=== PATIENT | female | born 1945 | race Caucasian/White ===

== ENCOUNTER 2017-11-22 10:20 | Day surgery (SDC) | payer OTHER, BC ==
--- NOTE | 2017-11-17 09:40 | RAD REPORT ---
EXAM DESCRIPTION: Cedric Jasso (2 Views)11/17/2017 9:24 am CLINICAL HISTORY: Hypertension/preoperative exam COMPARISON: 2010 FINDINGS: The lungs appear clear of acute infiltrate. The heart is normal size IMPRESSION: No acute abnormalities displayed
[2017-11-17 09:58] LABS: Absolute Lymphocytes (CBC) 1.4 K/uL (0.7-4.9); Basophils % 1.4 % (0-1.3); Eosinophils % 4.7 % (0-4.4); Hematocrit 42.9 % (36.0-45.0); Lymphocytes % 21.3 % (15.3-44.8); MCH 31.1 pg (27.0-35.0); MCV 91.6 fL (80-100); Monocytes % 14.3 % (3.3-12.3); RBC Red Blood Cell Count 4.68 M/uL (3.86-4.86)
[2017-11-17 10:31] LABS: Albumin 4.2 g/dL (3.4-5.0); Bilirubin Total 0.9 mg/dL (0.2-1.0); Potassium 4.1 mmol/L (3.5-5.1); Protein, Total 7.7 g/dL (6.4-8.2)
[2017-11-17 13:34] LABS: Urine Appearance CLOUDY; Urine Blood NEGATIVE (NEG); Urine Color DK YELLOW; Urine Glucose NEGATIVE (NEG); Urine Protein NEGATIVE (NEG); Urine Specific Gravity 1.025 (1.005-1.030)
[2017-11-17 13:40] LABS: Urine Bilirubin NEGATIVE (NEG); Urine Microscopic Reflex NO UMIC
[2017-11-22] MEDS ORDERED: Ringers Lactate 1,000 ML IV ONE (10:41)
[2017-11-22] MEDS ORDERED: CEFAZOLIN/SWI 1gm 1 GM/10 ML SYR ONE (10:41)
[2017-11-22] MEDS ORDERED: PROPOFOL 200 MG/20 ML VIAL IV ONE (12:02)
[2017-11-22] MEDS ORDERED: MIDAZOLAM HCL 2 MG/2 ML INJ ONE (12:03)
[2017-11-22] MEDS ORDERED: LIDOCAINE 2% MPF 5 ML VIAL ONE (12:03)
[2017-11-22] MEDS ORDERED: FENTANYL CITR 100 MCG/2 ML ONE (12:03)
[2017-11-22] MEDS ORDERED: EPHEDRINE SULF 50 MG/5 ML SYR ONE (12:05)
[2017-11-22] MEDS ORDERED: BUPIVACAINE 0.5% PF 10 ML VIAL ONE (12:27)
[2017-11-22] MEDS ORDERED: DEPO-MEDROL 40 MG/ML IM ONE (12:27)
[2017-11-22] MEDS ORDERED: ONDANSETRON HCL 40 MG/20 ML VIAL ONE (13:18)
[2017-11-22 14:18] VITALS: TEMP 97.2
--- NOTE | 2017-11-22 14:20 | P.BOP ---
Preoperative diagnosis: INTERNAL DERANGEMENT LEFT KNEE, MED&LAT MENISCAL PATHOLOGY Postoperative diagnosis: ANT.MED.PLICA,REACTIVE. TEAR MID&POST MED MENISC.TEAR LAT.MENISC.MIDBODY.PF Primary procedure: DIAG ARTHROSC. LEFT KNEE w/PARTIAL MED&LAT MENISECT. EXCISION AMT/MED PLICA Secondary procedure: SHAVING GD 3 CHONDROMALACIA MED&PF COMPARTMENTS Expanding Machine Operator: Jr Oropeza Estimated blood loss: <5mL Specimen: SHAVINGS Findings: SEE POST-OP DX Anesthesia: General Complications: None Implants: NONE Fluids & blood products: INJ 10 mL 0.5%MARCAINE PLAIN INTO SUBQ INCISION;DEPO- MEDROL 40 mg INTRA ART Transferred to: Recovery Room Condition: Good
[2017-11-22 15:13] VITALS: BP 129/77; O2SAT 97
--- NOTE | 2017-11-23 00:50 | OP ---
Date of Procedure: 11/22/2017 Surgeon: Jr Oropeza MD Cushion Gum Applicator: Jr Oropeza M.D. Preoperative Diagnoses: Internal derangement of the left knee with medial and lateral meniscal patho logy noted on MRI scan. The patient is having mechanical symptoms of giving way and falling. Postoperative Diagnoses: Anteromedial plica, reactive; tear mid and posterior body of medial meniscu s with associated chondromalacia medial compartment; tear of lateral midbody meniscus with fraying; a nd patellofemoral grade 3 chondromalacia. Primary Procedures: Diagnostic arthroscopy of the left knee with shaving of patellofemoral chondroma lacia, grade 3; resection of anteromedial plica; and shaving of reactive area at distal medial edge o f medial femoral condyle. Tear midbody and posterior horn of medial meniscus resected with partial m eniscectomy and lateral meniscal midbody tear resected with partial meniscectomy. Indications: This 72-year-old female has had mechanical symptoms of giving way and popping and recur rent episodes of swelling after MRI verified tears in the medial and lateral menisci and patellar cho ndromalacia. The patient has elected to proceed with diagnostic arthroscopy and indicated procedures . Technique: The patient was taken to the operating room and given a general anesthesia. The left low er extremity was placed in the limb nolasco and a tourniquet was applied to the proximal thigh. Prepp ing and draping was carried out in the usual manner, and the foot of the bed was dropped. The right thigh was supported with a trough pad that was elevated with a bolster to avoid hyperextension of the right hip during the procedure. The puncture wounds were made in the anteromedial and lateral haile ls. These were used for the scope through the lateral portal and instrumentation through the medial portal. The scope was moved into the intracondylar notch and then moved up into the patellofemoral j oint, carefully protecting the trochlear groove. There was full thickness fronding and chondromalaci a of the patella at grade 3, which was shaved and smoothed. There was grade 2 chondromalacia in the trochlear groove and it was also smoothed. The patella was observed tracking without hindrance. At that point, the scope was moved into the medial gutter and the large thickened anteromedial plica was encountered. There was a reactive area along the medial edge of the distal end of the medial femora l condyle. This reactive synovium was also resected along with the anteromedial plica. Passing into the medial compartment, the meniscus was obviously torn with a ragged tear that began at the anterio r horn and extended through the midbody and posterior horn. The tear was much like a serrated saw ed ge and the shaver was introduced and the damaged tissue was taken back to a stable remnant. The post erior horn had a horizontal split and the suction punch was used to take back the edges of the marketing finance manager ior horn to a stable position as well. The shaver was used to touch up chondromalacia in the joint a s well as smooth the edge of the trimmed cartilage. Once the medial compartment was done, then the s cope was moved into the intracondylar notch. Portions of the ligamentum mucosum and anterior fat pad were excised for visualization of the anterior cruciate and origin of the PCL. There was no patholo gy in the intercondylar notch. Passing into the lateral compartment, there was thin diaphanous frayi ng of the midportion of the lateral meniscus, and shaver was introduced to smooth and trim the portio ns of the lateral meniscus that were being caught within the intra-articular joint space. The shavin g was smoothing of that area of the meniscus with the pathology. The scope was then moved back to th e intracondylar notch and moved up to observe the patella tracking. It was tracking in the center of the trochlear groove and the trimming of chondromalacia made it appeared to be tracking quite smooth ly and without hindrance. The suprapatellar pouch was explored along with the medial and lateral gut ters. No additional loose bodies or pathology were encountered. Instrumentation was withdrawn and p unctures were closed with 4-0 nylon interrupted sutures. The punctures were injected with 10 mL of 0 .5% Marcaine plain. The intra-articular space was injected with 1 mL of Depo-Medrol 40 mg. The punc tures were covered with Xeroform gauze, flaps, and soft roll, and an Hermelindo wrap was placed around the k nee. The patient was taken to the recovery room having tolerated this procedure well. Blood Loss: Less than 5 mL. LUIS/DEBRA Voice ID: [id number] Report ID: [id number]
== END 2017-11-22 15:14 | disposition home or self-care (01) ==
LOC: OR 10:20
PROVIDERS: ATTEND Orthopaedic Surgery
PROC: 0SBD4ZZ Excision of Left Knee Joint, Percutaneous Endoscopic Approach (ICD-10-PCS; 2017-11-22)
PROC: 0SBD4ZZ Excision of Left Knee Joint, Percutaneous Endoscopic Approach (ICD-10-PCS; 2017-11-22)
PROC: 0SBD4ZZ Excision of Left Knee Joint, Percutaneous Endoscopic Approach (ICD-10-PCS; principal; 2017-11-22 11:30)
DX: M23.322 Other meniscus derangements, posterior horn of medial meniscus, left knee (principal); M23.362 Other meniscus derangements, other lateral meniscus, left knee; M22.42 Chondromalacia patellae, left knee; I10 Essential (primary) hypertension; M67.52 Plica syndrome, left knee
CPT/HCPCS: 29880; 36415; 71046; 80053; 81003; 83036; 85025; 88304; J0690; J1030; J2250; J2405; J3010

== ENCOUNTER 2019-01-23 06:32 | Day surgery (SDC) | payer OTHER, BC ==
--- NOTE | 2019-01-17 10:36 | RAD REPORT ---
EXAM DESCRIPTION: RAD - Chest Pa And Lat (2 Views) - 01/17/2019 9:33 am CLINICAL HISTORY: preoppatient pending right hand surgery for trigger finger release COMPARISON: November 2017 TECHNIQUE: PA and lateral views of the chest were obtained. FINDINGS: The lungs are clear of focal mass or infiltrate. Interstitial pattern matches comparison. Heart size is normal and central vasculature is within normal limits. No pleural effusion or pneum othorax seen. Thoracolumbar scoliosis changes are present and stable. No aortic abnormality. IMPRESSION: No acute cardiopulmonary process. Mild chronic interstitial lung pattern matches compar diana.
[2019-01-17 10:44] LABS: Absolute Lymphocytes (CBC) 1.6 K/uL (0.7-4.9); Basophils % 1.1 % (0-1.3); Hematocrit 42.1 % (36.0-45.0); Lymphocytes % 20.2 % (15.3-44.8); MPV 8.8 fL (7.6-11.3); RBC Red Blood Cell Count 4.54 M/uL (3.86-4.86)
[2019-01-17 11:03] LABS: Albumin 4.3 g/dL (3.4-5.0); Bilirubin Total 0.9 mg/dL (0.2-1.0); Potassium 3.5 mmol/L (3.5-5.1); Protein, Total 7.9 g/dL (6.4-8.2)
[2019-01-17 12:09] LABS: Urine Appearance CLEAR; Urine Bilirubin NEGATIVE (NEG); Urine Blood NEGATIVE (NEG); Urine Color DK YELLOW; Urine Glucose NEGATIVE (NEG); Urine Protein NEGATIVE (NEG); Urine Specific Gravity 1.025 (1.005-1.030); Urine Urobilinogen 0.2 mg/dL (0.2-1.0)
[2019-01-17 12:10] LABS: Urine Microscopic Reflex ORDER UMIC
[2019-01-17 15:47] LABS: Urine Amorphous Sediment 2+ /HPF (NONE SEEN); Urine Bacteria 20-50 /HPF (<20); Urine Culture Reflex Order REFLEXED; Urine Mucus 2+ /HPF (NONE SEEN); Urine RBC <5 /HPF (NONE SEEN)
--- OUTSIDE RECORDS SUMMARY | 2019-01-23 06:35 | XMS REPORT ---
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 Problem Other meniscus derangements, other M23.362 Active lateral meniscus, left knee Problem Other meniscus derangements, M23.322 Active posterior horn of medial meniscus, left knee Problem Coronary artery disease involving I25.10 Active quechan coronary artery of quechan heart without angina pectoris Problem History of [place] (myocardial 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) Problem Eosinophilia D72.1 Active Problem Abnormal laboratory test result R89.9 Active Problem Cardiac murmur R01.1 Active Problem Left hand pain M79.642 Active Problem Trigger finger, right ring finger M65.341 Active Problem Trigger finger, left ring finger M65.342 Active Problem Contusion of right tibia S80.11XA Active Problem Knee pain, unspecified chronicity, M25.569 Active unspecified laterality Problem Sprain of left knee, unspecified S83.92XA Active ligament, initial encounter Problem Pain, joint, knee, left M25.562 Active Problem Pain of right tibia M89.8X6 Active Problem Essential hypertension I10 Active Problem Prediabetes R73.03 Active Problem Right hand pain M79.641 Active Problem Obesity (BMI 30.0-34.9) E66.9 Active Problem Skin lesions L98.9 Active Problem Swelling R60.9 Active Problem Heart disease I51.9 Active Problem Left sided sciatica M54.32 Active Problem Primary osteoarthritis of left M17.12 Active knee Problem Abnormal renal function test R94.4 Active Problem Hypokalemia E87.6 Active Problem Hyperlipidemia E78.5 Active Problem Abnormal liver function test R94.5 Active Medications Medication Code Code Instructions Start End Status Dosage System Date Date Hydrochlorothiazide [facility] 32311405939 25 MG Orally Active 1 tablet Once a day in the morning Toprol XL [facility] [address]-33 50 MG Orally Active 1 tablet Once a day Probiotic [facility] 6[address]40-[address] Active not defined Biotin [facility] 82775414899 5000 MCG Active 1 tablet Orally Once a (OTC) day Diclofenac Sodium [facility] [address]-67 1 % Sept Active as Transdermal 2017 Fish Oil [facility] 77169185045 1200 MG Orally Active 1 capsule Twice a day (OTC) Multivitamin [facility] 22495-[address]80 Orally Once Active 1 tablet daily (OTC--2,0 00 IU) Vitamin D-3 [facility] [address]092 Orally Once a Active 1 tablet day (OTC--2,0 00 IU) Potassium Chloride [facility] 57738889466 20 MEQ Orally Active 1 tablet Once a day with food ASA [facility] 0 81mg Orally Active 1 tablet Once a day (OTC) Osteo Bi-Flex Regular [facility] 13289-37[address] Active not Strength defined Vitamin C [facility] 12714745879 1000 MG Orally Active 1 tablet Once a day (OTC) Vitamin B 12 [facility] [address]8411-[address] Orally Once Active 1 tablet daily (OTC--500 mcg) Zocor [facility] 62695986414 20 MG Orally Active 1 tablet Once a day in the evening Zetia [facility] 99017547744 10 MG Orally Active 1 tablet Once a day Calcium + D [facility] 9[address]35[address] Orally Once Active 1 tablet daily (OTC) Lotrel [facility] 15915060464 5-20 MG Orally Active 1 tablet Twice daily Results No Known Results Summary Purpose [employer] Submission
[2019-01-23] MEDS ORDERED: Ringers Lactate 1,000 ML IV ONE (06:50)
[2019-01-23] MEDS ORDERED: CEFAZOLIN/SWI 1gm 1 GM/10 ML SYR ONE (06:50)
[2019-01-23] MEDS ORDERED: FENTANYL CITR 100 MCG/2 ML ONE (07:08)
[2019-01-23] MEDS ORDERED: PROPOFOL 200 MG/20 ML VIAL IV ONE (07:08)
[2019-01-23] MEDS ORDERED: MIDAZOLAM HCL 2 MG/2 ML INJ ONE (07:08)
[2019-01-23] MEDS ORDERED: LIDOCAINE 1% MPF 5 ML VIAL ONE (07:09)
[2019-01-23] MEDS ORDERED: BUPIVACAINE 0.25% PF 10 ML VIAL ONE (07:23)
[2019-01-23] MEDS ORDERED: ONDANSETRON 4 MG/2 ML VIAL ONE (07:58)
[2019-01-23] MEDS ORDERED: DEPO-MEDROL 40 MG/ML IM ONE (08:01)
[2019-01-23] MEDS ORDERED: NS 0.9% VIAL 10 ML ONE (08:10)
[2019-01-23] MEDS ORDERED: NA CHLORIDE 0.9% 1,000 ML ONE (08:27)
--- NOTE | 2019-01-23 08:45 | P.BOP ---
Preoperative diagnosis: RIGHT RING FINGER TRIGGER FINGER Postoperative diagnosis: SAME Primary procedure: RIGHT RING FINGER TRIGGER RELEASE Neuro Urologist: Jr Oropeza Estimated blood loss: <5mL Specimen: NONE Anesthesia: General Complications: None Fluids & blood products: INJ. [id number]; INJ 1mL 0.25%MARCAINE PLAIN Transferred to: Recovery Room Condition: Good
[2019-01-23 09:18] VITALS: BP 116/62; TEMP 97.2; O2SAT 95
--- NOTE | 2019-01-23 20:27 | OP ---
Surgeon: Jr Oropeza MD Hand Miter Operator: Jr Oropeza MD Preoperative Diagnosis: Right ring trigger finger syndrome. Postoperative Diagnosis: Right ring trigger finger syndrome. Primary Procedure: Right ring finger trigger release. Indications: This 73-year-old female has complaints of locking and catching of the right ring finger at full flexion. This is occurring daily. The patient has discomfort associated with releasing the locked ring finger. The patient has had releases for middle finger triggering and wishes to proceed with trigger finger release for the right ring finger. Technique: The patient was taken to the operating room. A time-out was called and all pertinent fac ts were discussed. It was decided to proceed with the operation as planned. The right upper extremi ty was prepped and draped with the tourniquet in position. The limb was wrapped with an Esmarch band age for exsanguination and the tourniquet was raised to 250 mmHg. A transverse incision was made jus t distal to the billings crease. This allowed exposure of the flexor tendon and the A1 brittny. The A1 brittny was divided longitudinally under direct visualization. The incision was irrigated. There we re no punctate bleeders. Depo-Medrol 20 mg, 0.5 mL was injected into the incision. 1 mL of 0.25% Ma rcaine was also injected into the incision. The incision was closed with two interrupted sutures of 4-0 nylon. Xeroform gauze, 4 x 4, soft roll, and a 2 inch Hermelindo wrap were used to apply bandage and mi ld compression at the incision site. The patient was then awakened and taken to the recovery room joseph ving tolerated this procedure well. Estimated blood loss was less than 5 mL. Condition was good. LUIS/DEBRA Voice ID: [id number] Report ID: [id number]
== END 2019-01-23 09:50 | disposition home or self-care (01) ==
LOC: OR 06:32
PROVIDERS: ATTEND Orthopaedic Surgery
PROC: 0LN70ZZ Release Right Hand Tendon, Open Approach (ICD-10-PCS; principal; 2019-01-23 07:30)
DX: M65.341 Trigger finger, right ring finger (principal); M65.342 Trigger finger, left ring finger; I10 Essential (primary) hypertension; I25.10 Atherosclerotic heart disease of native coronary artery without angina pectoris; R01.1 Cardiac murmur, unspecified; I25.2 Old myocardial infarction; E78.5 Hyperlipidemia, unspecified; Z79.82 Long term (current) use of aspirin; Z88.8 Allergy status to other drugs, medicaments and biological substances; Z95.5 Presence of coronary angioplasty implant and graft; Z82.49 Family history of ischemic heart disease and other diseases of the circulatory system
CPT/HCPCS: 87088; 85025; 87086; 36415; 83036; 80053; 71046; 26055; J2704; J1030; J2250; J3010; J0690; J7030; J2405; 81003; 81015

== ENCOUNTER 2019-02-13 06:22 | Day surgery (SDC) | payer OTHER, BC ==
[2019-02-06 16:14] LABS: Urine Appearance CLEAR; Urine Bilirubin NEGATIVE (NEG); Urine Blood NEGATIVE (NEG); Urine Color DK YELLOW; Urine Glucose NEGATIVE (NEG); Urine Protein NEGATIVE (NEG); Urine Specific Gravity 1.025 (1.005-1.030); Urine Urobilinogen 0.2 mg/dL (0.2-1.0)
[2019-02-06 16:17] LABS: Absolute Lymphocytes (CBC) 1.9 K/uL (0.7-4.9); Basophils % 0.7 % (0-1.3); Hematocrit 40.4 % (36.0-45.0); Lymphocytes % 26.6 % (15.3-44.8); MPV 8.9 fL (7.6-11.3); RBC Red Blood Cell Count 4.38 M/uL (3.86-4.86)
[2019-02-06 16:23] LABS: Urine Microscopic Reflex NO UMIC
[2019-02-06 16:32] LABS: Albumin 4.3 g/dL (3.4-5.0); Bilirubin Total 0.7 mg/dL (0.2-1.0); Potassium 3.7 mmol/L (3.5-5.1); Protein, Total 8.1 g/dL (6.4-8.2)
[2019-02-06 22:12] LABS: Blood Morphology Comment NOT SEEN (NOT SEEN); Platelet Estimate ADEQ; Urine White Blood Cell Casts OK
[2019-02-13] MEDS ORDERED: Ringers Lactate 1,000 ML IV ONE ×2 (06:38→08:38)
[2019-02-13] MEDS ORDERED: CEFAZOLIN/SWI 1gm 1 GM/10 ML SYR ONE (06:38)
[2019-02-13] MEDS ORDERED: PROPOFOL 200 MG/20 ML VIAL IV ONE ×2 (06:58→07:34)
[2019-02-13] MEDS ORDERED: FENTANYL CITR 100 MCG/2 ML ONE (06:58)
[2019-02-13] MEDS ORDERED: LIDOCAINE 2% MPF 5 ML VIAL ONE (06:59)
[2019-02-13] MEDS ORDERED: MIDAZOLAM HCL 2 MG/2 ML INJ ONE (07:33)
[2019-02-13] MEDS ORDERED: BUPIVACAINE 0.25% PF 10 ML VIAL ONE (08:01)
--- NOTE | 2019-02-13 08:21 | P.BOP ---
Preoperative diagnosis: LEFT RING FINGER TRIGGER FINGER Postoperative diagnosis: SAME Primary procedure: TRIGGER FINGER RELEASE LEFT RING FINGER Supervisor Paper Machine: Jr Oropeza Estimated blood loss: < 5 mL Specimen: NONE Findings: A1 ISAIAH TIGHT Anesthesia: General Complications: None Fluids & blood products: INJ 1 mL 0.25% MARCAINE Transferred to: Recovery Room Condition: Good
[2019-02-13 09:56] VITALS: BP 123/58; TEMP 97; O2SAT 96
--- NOTE | 2019-02-13 11:02 | EKG ---
Test Date: 2019-02-13 Test Time: 07:07:26 Slot Shift Supervisor: JASON MEASUREMENT RESULTS: Intervals: Rate: 66 NC: 168 QRSD: 94 QT: 426 QTc: 446 [place]: P: 45 NC: 168 QRS: -19 T: 44 INTERPRETIVE STATEMENTS: Normal sinus rhythm Minimal voltage criteria for LVH, may be normal variant Borderline ECG Compared to ECG 11/17/2014 00:27:41 Left ventricular hypertrophy now present Sinus bradycardia no longer present Ventricular premature complex(es) no longer present Electronically Signed On 02-13-19 11:01:13 CDT by Casimiro Mclaughlin
--- NOTE | 2019-02-13 18:43 | OP ---
Date of Procedure: 02/13/2019 Surgeon: Jr Oropeza MD Postoperative Diagnosis: Left ring finger trigger finger. Postoperative Diagnosis: Left ring finger trigger finger. Primary Procedure: Trigger finger release, left ring finger. Indication: This 73-year-old female has had painful locking and catching of her left ring finger. S he has had prior trigger releases for both middle fingers and the right ring finger. She has elected to proceed after discussion of risks and benefits with trigger finger release for the left ring fing er. Technique: The patient was taken to the operating room and given a general anesthesia. Time-out was called and all pertinent facts were discussed. It was decided to proceed with the operation as plan jose. The left upper extremity was prepped with the tourniquet in place. The limb was elevated and a n Esmarch bandage was used for exsanguination. The tourniquet was raised to 250 mmHg. The transvers e incision was made just distal to the transverse palmar crease at the base of the left hand ring fin brent. With blunt dissection, the tendon and A1 brittny were exposed with a [place] elevator probing the proximal margin of the brittny was defined. The blunt tip of the [place] was slipped under the A1 pulle y and the 15 blade was used to cut down on the [place], dividing the A1 brittny. The tendon was then fr ee for extension and flexion visible after the A1 brittny was incised. Irrigation was carried out. C losure was affected with 2 interrupted 4-0 nylon sutures. Estimated blood loss was less than 1 mL. The Xeroform gauze, 4x4s, and a Maria [place]adalupe wrap were used to apply a compression bandage, 1 inch Hermelindo wrap was applied after that. The patient was then taken to the recovery room having tolerated the procedu re well. Just prior to suturing, each margin of the incision was injected with 0.25% Marcaine, 1 mL total. The patient was taken to the recovery room in good con dition. LUIS/DEBRA Voice ID: [id number] Report ID: [id number]
== END 2019-02-13 09:45 | disposition home or self-care (01) ==
LOC: OR 06:22
PROVIDERS: ATTEND Orthopaedic Surgery
PROC: 0LN80ZZ Release Left Hand Tendon, Open Approach (ICD-10-PCS; principal; 2019-02-13 07:30)
DX: M65.342 Trigger finger, left ring finger (principal); I10 Essential (primary) hypertension; I25.10 Atherosclerotic heart disease of native coronary artery without angina pectoris; R01.1 Cardiac murmur, unspecified; I25.2 Old myocardial infarction; E78.5 Hyperlipidemia, unspecified; Z88.8 Allergy status to other drugs, medicaments and biological substances; Z95.5 Presence of coronary angioplasty implant and graft; Z83.3 Family history of diabetes mellitus; Z82.49 Family history of ischemic heart disease and other diseases of the circulatory system
CPT/HCPCS: 93005; 85025; 36415; 81003; 83036; 80053; 26055; J2704 ×2; J2250; J3010; J0690

== ENCOUNTER 2021-03-16 11:50 | Day surgery (SDC) | payer OTHER, BC ==
--- NOTE | 2021-03-13 14:22 | RAD REPORT ---
EXAM DESCRIPTION: RAD - Chest Pa And Lat (2 Views) - 03/13/2021 2:01 pm CLINICAL HISTORY: PRE-CATH PROCEDURE COMPARISON: Two view chest January 2019 TECHNIQUE: Frontal and lateral views of the chest were obtained. FINDINGS: The lungs are clear. Interstitial pattern matches comparison. Heart size is normal and ce ntral vasculature is within normal limits. No pleural effusion or pneumothorax seen. No acute bony finding noted. Degenerative and scoliotic changes match the comparison. No aortic abnormality. No s ignificant change from comparison study. IMPRESSION: No acute cardiopulmonary process.
[2021-03-13 14:28] LABS: Absolute Lymphocytes (CBC) 2.9 K/uL (0.7-4.9); Basophils % 1.3 % (0-1.3); Hematocrit 45.4 % (36.0-45.0); Lymphocytes % 28.7 % (15.3-44.8); MPV 7.9 fL (7.6-11.3); RBC Red Blood Cell Count 4.81 M/uL (3.86-4.86)
[2021-03-13 14:35] LABS: Protime INR 0.99
[2021-03-13 14:49] LABS: Potassium 3.7 mmol/L (3.5-5.1)
[2021-03-16 13:06] VITALS: TEMP 96.8
[2021-03-16] MEDS ORDERED: NA CHLORIDE 0.9% 500 ML ONE (13:16)
[2021-03-16] MEDS ORDERED: HEPA 1000U/500MLS 1,000 UNIT/500 ML BAG IV ONE ×2 (14:50→15:35)
[2021-03-16] MEDS ORDERED: VERAPAMIL HCL 10 MG/4 ML VIAL IV ONE (14:50)
[2021-03-16] MEDS ORDERED: FENTANYL CITR 100 MCG/2 ML ONE (14:50)
[2021-03-16] MEDS ORDERED: MIDAZOLAM HCL 2 MG/2 ML INJ ONE (14:50)
[2021-03-16] MEDS ORDERED: LIDOCAINE 1% 20 ML MDV ONE (14:50)
[2021-03-16] MEDS ORDERED: ATROPINE SULF 1 MG/10 ML SYR IV ONE (14:51)
[2021-03-16] MEDS ORDERED: HEPARIN 5000 UNIT/ML 1 ML VIAL ONE (14:51)
[2021-03-16] MEDS ORDERED: NITROGLYCERIN 100 MCG/ML SYR (for cath lab use only) IV ONE (14:58)
[2021-03-16] MEDS ORDERED: NITROGLYCERIN/D5W 25 MG/250 ML BTL IV ONE (14:58)
[2021-03-16] MEDS ORDERED: CLOPIDOGREL 75 MG TABLET ONE (15:15)
[2021-03-16] MEDS ORDERED: TICAGRELOR 90 MG TABLET PO ONE (15:15)
[2021-03-16 18:05] VITALS: BP 143/73; O2SAT 96
--- NOTE | 2021-03-17 02:56 | OP ---
Date of Procedure: 03/16/2021 Surgeon: NOEL JAUREGUI Procedure Performed: 1.Selective coronary angiogram. 2.Left heart catheterization. 3.Right heart catheterization. Indication: 1.Aortic valve stenosis. 2.Angina. Access: 1.Right IJ 7-Guinean, closed with manual pressure. 2.Right radial artery 6-Guinean, closed with TR band. Complications: None. Bleeding: Less than 10 mL. Description Of Procedure: After risks, benefits, alternatives were explained, patient agreed to proc eed and signed informed consent. Patient was brought in the cardiac catheterization laboratory, prep ped and draped in usual sterile fashion. Then, we accessed the right radial artery using pediatric m icropuncture kit and placed a 6-Guinean slender sheath. Accessed right IJ using micropuncture kit and ultrasound guidance and placed 7-[place]an [place] sheath. I took a 7-[place]inean balloon-tipped [place] cath eter through the IJ into the RA, RV, PA, and wedge. Recorded waveform in each location and pressure and then performed thermodilution cardiac output. Removed the [place] and then I took 12-[place]an [place] 4 .0 catheter into the aortic root, engaged the left main and right coronary artery, took standard view s. Then, I took AL1 catheter into the aortic root and over the wire. This was advanced across the a ortic valve, recorded LVEDP, and upon pullback, there was a gradient of 27 mmHg and valve area of 1.1 indicating moderately severe aortic valve stenosis. Then, catheter was removed, sheath was removed, and placed TR band with good hemostasis. Next, sheath was removed. Manual pressure was applied wit h good hemostasis. Findings: 1.Left main: Normal. 2.LAD: Large vessel, proximal, heavily calcified 80% stenosis across the diagonal 1 branch. Diagon al 1 branch with luminal irregularities and the LAD looks fine after that. 3.Left circumflex: Large, dominant with no significant disease. 4.RCA: Small, nondominant with diffuse mid 60% stenosis. 5.Right heart catheterization numbers: RA pressure was 5, RV was 32/1 with mean of 5, PA pressure w as 23/5 with mean of 13, LVEDP was 16. Cardiac output was 5.89. Mean gradient across aortic valve w as 27 mmHg. Valve area was 1.17 sq cm. Conclusions: 1.Severe heavily calcified proximal LAD stenosis. 2.Moderate aortic valve stenosis. Plan: 1.PCI and atherectomy of the proximal LAD disease in [place] or [place]. 2.Start aspirin and Plavix. 3.Monitor the aortic valve with yearly echo. SR/MODL Voice ID: [id number] Report ID: [id number]
== END 2021-03-16 18:07 | disposition home or self-care (01) ==
LOC: CCL 11:50
PROVIDERS: ATTEND Internal Medicine
DX: I25.119 Atherosclerotic heart disease of native coronary artery with unspecified angina pectoris (principal); I35.2 Nonrheumatic aortic (valve) stenosis with insufficiency; I48.91 Unspecified atrial fibrillation; I10 Essential (primary) hypertension; E78.5 Hyperlipidemia, unspecified; Z88.8 Allergy status to other drugs, medicaments and biological substances; Z82.49 Family history of ischemic heart disease and other diseases of the circulatory system
CPT/HCPCS: 85025; 80048; 36415; 85610; 85730; 71046; 93460; C1893; J1644 ×3; J7040; J2250; J3010

== ENCOUNTER 2022-12-01 11:26 | Emergency (ER) | payer OTHER, BC ==
--- OUTSIDE RECORDS SUMMARY | 2022-12-01 11:34 | XMS REPORT | Continuity of Care Document ---
:1945 Author Organization [facility] t Address [address] [place] [address] [place] [id number] Care Team Providers Name Role Phone AYANNA MCCLENDON Primary Care Physician Unavailable Remedios Gamboa Attending Clinician Unavailable AYANNA MCCLENDON Attending Clinician Unavailable Lab, Ang - Db Attending Clinician Unavailable Ayanna Pavon Attending Clinician Juan M Nair Attending Clinician Unavailable He Powell Attending Clinician Unavailable João Viramontes Attending Clinician Unavailable Gombera, Mufaddal M Attending Clinician Unavailable Unknown, Attending Attending Clinician Unavailable VALENTIN WOODWARD M.D. Attending Clinician Unavailable João Viramontes Admitting Clinician Unavailable UNDEFINED Admitting Clinician Unavailable Physician, No Primary or Family Admitting Clinician Unavaila ble Payers Payer Name Policy Type Policy Number Effective Date Expiration Date S ju MEDICARE MB [id number] 2012 [facility] NOVITAS 00:00:00 [facility] Blue Cross Blue C1 [id number] [facility] Blue Cross Blue C1 [id number] [facility] MEDICARE MB [id number] 2012 [facility] NOVITAS 00:00:[address] - [facility] MEDICARE MB [id number] 2012 [facility] NOVITAS 00:00:00 [facility] Blue Cross Blue C1 [id number] [facility] Blue Cross and C1 [id number] [facility] Blue Shield - [facility] MEDICARE MB [id number] 2012 [facility] NOVITAS 00:00:[address] - [facility] MEDICARE MB [id number] 2012 [facility] NOVITAS 00:00:00 [facility] Blue Cross and C1 [id number] [facility] Problems Condition Condition Condition Status Onset Resolution Last Treating Co mments Source Name Details Category Date Date Treatment Clinician Date Hypertensi Hypertensi Disease Active U nivers ve chronic ve chronic 11-26 it y of kidney kidney 00:00: [place] disease disease 00 Medical with stage with stage Br anch 1 through 1 through stage 4 stage 4 chronic chronic kidney kidney disease, disease, or or unspecifie unspecifie d chronic d chronic kidney kidney disease disease Hx of Hx of Disease Active Univers heart heart 11-26 ity of artery artery 00:00: [place] stent stent Medical Branch 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 under care with cardiolog ist, Dr. 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 Dyslipidem Dyslipidem Problem Active U [place] Physici ans [id number] Essential Problem Active Comm on hypertensi Spirit on [facility] [id number] Knee pain, Problem Active Com mon unspecifie [facility] d - CHI chronicity [facility] unspecifie Medica l d Center laterality [id number] Cardiac Problem Active Common murmur [facility] [id number] Left sided Problem Active Com mon sciatica [facility] [id number] Sprain of Problem Active Comm on left knee, Spirit unspecifie - CHI d [facility] initial Medical encounter Center Swelling Swelling Problem Active Commo n [facility] [id number] Primary Problem Active Comm on osteoarthr Spirit itis of [facility] left knee [facility] [id number] Obesity Problem Active Comm on (BMI Spirit 30.0-34.9) [facility] [id number] Chondromal Problem Active C ommon acia [facility] patellae - CHI of left [facility] [id number] Prediabete Problem Active Co mmon s [facility] [id number] Other Problem Active Common meniscus Spirit derangemen - [facility] ts, [facility] of [facility] meniscus, left knee [id number] History of Problem Active Co mmon [place] [facility] (myocardia - CHI l [facility] [id number] Coronary Problem Active Com mon 107 artery [facility] disease - CHI involving [facility] coronary Medical artery of [place] heart without angina pectoris [id number] Hypokalemi Problem Active Com mon a [facility] [id number] Abnormal Problem Active Comm on renal [facility] function - CHI test [facility] [id number] Abnormal Problem Active Comm on laboratory [facility] test - [facility] result [facility] [id number] Eosinophil Problem Active Co mmon ia [facility] [id number] Trigger Problem Active Commo n finger, Spirit right ring - CHI finger [facility] [id number] Left hand Problem Active Co mmon [id number] pain [facility] [id number] Other Problem Active Common meniscus [facility] derangemen - [facility] ts, other [facility] meniscus, Medical left knee Center [id number] Right hand Problem Active C ommon [id number] pain [facility] [id number] Skin Problem Active Common lesion [facility] [id number] Contusion Problem Active Com mon of right [facility] tibia [facility] Heart Heart Problem Active Common disease disease [facility] [id number] Abnormal Problem Active Comm on liver [facility] function - [facility] test [facility] [id number] Pain of Problem Active Common right [facility] tibia [facility] [id number] Encounter Problem Active Com mon for other [facility] orthopedic - CHI aftercare [facility] [id number] Intertrigo Problem Active Com mon [facility] [id number] Screening Problem Active Com mon for Spirit thyroid - CHI disorder [facility] [id number] Primary Problem Active Comm on osteoarthr [facility] itis of [facility] right knee [facility] History of History of Problem Resolve UT atrial atrial d Physici fibrillati fibrillati an s on on Allergies, Adverse Reactions, Alerts Allergy Allergy Status Severity Reaction(s) Onset Inactive Treating Comm ents Source Name Type Date Date Clinician METFORMI DRUG Active Unknown-Cmnt Un lore N HCL INGREDI 11-19 ity of 00:00: [place] 00 Medical Branch Metformi Drug Active Unknown - Unive rs n Hcl Allergy See comments 11-19 ity of 00:00: [place] 00 Medical Branch dronedar DA Active SV HIVES 2020-05 [facility] one 05-27 Clear 00:00: [place] [facility] metformi DA Active SV HIVES 2020-05 [facility] n 05-27 Clear 00:00: [place] [facility] dabigatr DA Active SV HIVES 2020-05 [facility] an 05-27 Clear etexilat 00:00: [place] 00 [facility] No Known DA Active U UNKNOWN [facility] Drug 02-12 [place] Allergie 00:00: [facility] No Known DA Active U [facility] Drug 02-12 [place] Allergie 00:00: Orthope s 00 dic Hospita l Dronedar Propensi Active Rash Univer s one ty to 3-19 ity of adverse 00:00: [place] reaction 00 Medical [facility] Dabigatr Propensi Active Rash 2017-0 Univer s an ty to 3-19 ity of Etexilat adverse 00:00: [place] e reaction 00 Medical s [place] DRONEDAR DRUG Active Rash 2018-0 Univers ONE INGREDI 3-19 ity of 00:00: [place] 00 Medical Branch DABIGATR DRUG Active Rash 2018-0 Univers AN INGREDI 3-19 ity of ETEXILAT 00:00: [place] E 00 Medical Branch metformi Allergy Active Hives UT n to drug Physici (finding ans ) metformi metformi Active Unknown Commo n n n [facility] - [facility] dabigatr dabigatr Active Unknown Commo n an an Spirit etexilat etexilat - [facility] e e [facility] dronedar dronedar Active Unknown Commo n one one Spirit [facility] Family History Family Member Diagnosis Comments Start Date Stop Date Source Unknown Family Family history of Other [place] [facility] Member autoimmune disorder natural son Family history of [facility] Phy sicians hypertension Mother Family history of [facility] Phys icians hypertension Father Family history of [facility] icians hypertension Father Family history of [facility] icians coronary artery disease Sister Family history of [facility] hypothyroidism Sister Family history of [facility] diabetes mellitus Sister Family history of [facility] hypertension Sister Family history of [facility] Phys icians coronary artery disease Sister Family history of [facility] Phys icians autoimmune disorder Social History Social Habit Start Date Stop Date Quantity Comments Source History of Tobacco [facility] - Use [facility] Sex Assigned At [facility] - [facility] Exposure to Not sure University of SARS-CoV-2 (event) [facility] Gender identity Universit y of [facility] Sexual orientation Univer sity [facility] History of Social 2022-11-26 2022-11-26 Univers ity of function 00:00:00 00:00:00 [facility] Tobacco use and 2017-08-11 2017-08-11 Smokeless Universit y of exposure 00:00:00 00:00:00 tobacco non-user [facility] Smoking Status Start Date Stop Date Source Never smoked tobacco [facility] Medications Ordered Filled Start Stop Current Ordering Indication Dosage Frequency Signature Comments Components Source Medication Medication Date Date Medication? Clinician (SIG) Name Name metoprolol Yes 50mg Take 1 Unive rs succinate 7-14 tablet by ity o f XL (TOPROL 17:57: mouth in [place] as XL) 50 mg 06 the Medical 24 hr morning. Branch tablet ezetimibe Yes 10mg Take 1 Univer s (ZETIA) 10 7-14 tablet by ity of mg tablet 17:57: [facility] 06 the Medical morning. Branch apixaban Yes 5mg Take 1 Univers (ELIQUIS) 5 7-14 tablet by ity of mg tablet 17:57: [place] 06 the Medical morning Branch and 1 tablet in the evening. furosemide Yes 20mg Take 1 Unive rs 20 mg 7-14 tablet by ity of tablet 17:57: mouth in [place] 06 the Medical morning. Branch coQ10, 0 Yes Take by Univers ubiquinol, 7-14 mouth. ity of 100 mg Cap 17:57: [place] 06 [facility] Branch metoprolol Yes 50mg Take 1 Unive rs succinate 7-14 tablet by ity o f XL (TOPROL 17:57: mouth in [place] XL) 50 mg 06 the Medical 24 hr morning. Branch tablet ezetimibe 2022-0 Yes 10mg Take 1 Univer s (ZETIA) 10 7-14 tablet by ity of mg tablet 17:57: mouth in [facility] 06 the Medical morning. Branch apixaban Yes 5mg Take 1 Univers (ELIQUIS) 5 -14 tablet by ity of mg tablet 17:57: mouth in [facility] 06 the Medical morning Branch and 1 tablet in the evening. furosemide Yes 20mg Take 1 Unive rs 20 mg 7-14 tablet by ity of tablet 17:57: mouth in [place] [address] the Medical morning. Branch coQ10, Yes Take by Univers ubiquinol, 7-14 mouth. ity of 100 mg Cap 17:57: [place] 06 Medical Branch simvastatin 0 2022- No 20mg Take 20 mg Univers (ZOCOR) 20 11-26 by mouth ity of mg tablet 17:54: 00:00 at [place] 07 :00 bedtime. Medical Branch simvastatin 2022-0 2022- No 20mg Take 20 mg Univers (ZOCOR) 20 11-26 by mouth ity of mg tablet 17:54: 00:00 at [place] 07 :00 bedtime. Medical Branch [id number] 0 2022- No Take by Un lore iron-folic 11-26 mouth. ity of acid-dha 09:51: 00:00 [place] (PRENA1 53 :00 Medical DEIDRE) Branch 30-1.4-200 mg CpID [id number] 0 2022- No Take by Un lore iron-folic 11-26 mouth. ity of acid-dha 09:51: 00:00 [place] (PRENA1 53 :00 Medical DEIDRE) Branch 30-1.4-200 mg CpID Magnesium 0 2022- No Take by Univ ers 250 mg Tab 11-26 mouth. ity of 09:51: 00:00 [place] 44 :00 Medical Branch Magnesium 2022-0 2022- No Take by Uni vers 250 mg Tab 11-26 mouth. ity of 09:51: 00:00 [place] 44 :00 Medical Branch DOCOSAHEXAN 2022- No Take by Un lore OIC 11-26 mouth. ity of ACID/EPA 09:51: 00:00 [place] (FISH OIL 25 :00 Medical ORAL) Branch DOCOSAHEXAN 2022- No Take by Cornelius torrez OIC 11-26 mouth. ity of ACID/EPA 09:51: 00:00 [place] (FISH OIL 25 :00 Medical ORAL) Branch Biotin 2022- No Take by Univers 10,000 mcg 11-26 mouth. ity of Cap 09:51: 00:00 [place] 22 :00 Medical Branch Biotin 2022- No Take by Univers 10,000 mcg 11-26 mouth. ity of Cap 09:51: 00:00 [place] 22 :00 Medical Branch Lotrel 5-20 Lotrel 5-20 2020-0 Yes M.A. 1 Q0.5D TAKE 1 UT MG Oral MG Oral 2-27 CAPSULE Physic i Capsule Capsule 00:00: TWICE ans 00 DAILY hydroCHLORO hydroCHLORO 2020-0 Yes M.A. 1 QD TAKE 1 UT thiazide 25 thiazide 25 2-27 TABLET Physici MG Oral MG Oral 00:00: DAILY. ans Tablet Tablet 00 Toprol XL Toprol XL 2020-0 Yes M.A. QD TAKE 1 U T 50 MG Oral 50 MG Oral 2-27 TABLET P hysici Tablet Tablet 00:00: DAILY ans Extended Extended 00 Release 24 Release 24 Hour Hour Potassium Potassium 2019-0 Yes M.A. 1 QD TAKE 1 U T Chloride ER Chloride ER 2-27 TABLET Physici 10 MEQ Oral 10 MEQ Oral 00:00: DAILY. ans Tablet Tablet 00 Extended Extended Release Release Zocor 20 MG Zocor 20 MG 2020-0 Yes M.A. QD TAKE 1 UT Oral Tablet Oral Tablet 2-27 TABLET Physici 00:00: DAILY ans 00 DIRECTED. Zetia 10 MG Zetia 10 MG 2020-0 Yes M.A. TAKE 1 UT Oral Tablet Oral Tablet 2-27 TABLET BY Physici 00:00: MOUTH ans 00 DAILY D3 High D3 High 2019-0 Yes M.A. UT Potency 50 Potency 50 2-27 Phy sici MCG (2000 MCG (1999 00:00: ans UT) Oral UT) Oral 00 Capsule Capsule Vitamin B12 Vitamin B12 2020-0 Yes M.A. 1 QD TAKE 1 UT 500 MCG 500 MCG 2-27 TABLET Physici Oral Tablet Oral Tablet 00:00: DAILY. ans 00 [place] 3 [place] 3 2020-0 Yes M.A. UT 1200 MG 1200 MG 2-27 Physici Oral Oral 00:00: ans Capsule Capsule 00 Aspirin 81 Aspirin 81 2019-0 Yes M.A. QD CHEW AND UT 81 MG Oral 81 MG Oral 2-27 SWALLOW 1 Physici Tablet Tablet 00:00: TABLET ans Chewable Chewable 00 DAILY. CoQ10 200 CoQ10 200 2019-0 Yes M.A. UT MG Oral MG Oral 2-27 Physici Capsule Capsule 00:00: ans 00 Diclofenac Diclofenac Yes Remedios as Common Sodium Sodium 9-26 [place] directed Sp ravi 00:00: - CHI 00 [facility] Diclofenac Diclofenac No Diclofenac Sodium 1 % Sodium 1 % 9-26 Sodium 1 % 00:00: 00 Diclofenac Diclofenac No Diclofenac Sodium 1 % Sodium 1 % 9-26 Sodium 1 % 00:00: 00 Diclofenac Diclofenac No Diclofenac Common Sodium 1 % Sodium 1 % 9-26 Sodium 1 % Spirit 00:00: - CHI [facility] Diclofenac Diclofenac No Diclofenac Sodium 1 % Sodium 1 % 9-26 Sodium 1 % 00:00: 00 Diclofenac Diclofenac No Diclofenac Sodium 1 % Sodium 1 % 9-26 Sodium 1 % 00:00: 00 metoprolol Yes 50mg Take 50 mg U nivers succinate 08-11 by mouth ity of XL (TOPROL 15:38: daily. [place] XL) [address] [place] [address] 24 hr Branch tablet simvastatin Yes 20mg Take 20 mg Univers (ZOCOR) 20 -29 by mouth ity o f mg tablet 15:38: at [place] [address] bedtime. Medical Branch ezetimibe Yes 10mg Take 10 mg Un lore (ZETIA) 10 -29 by mouth ity o f mg tablet 15:38: daily. [place] [address] Medical Branch CHOLECALCIF Yes Take by Uni vers AZAEL, 3-29 mouth. ity of VITAMIN D3, 15:38: [place] (D-3-5 Medical ORAL) Branch aspirin 81 Yes 81mg Take 81 mg U nivers mg chewable 3-29 by mouth ity of tablet 15:38: daily. [address] Branch DOCOSAHEXAN Yes Take by Uni vers OIC 3-29 mouth. ity of ACID/EPA 15:38: [place] (FISH OIL Medical ORAL) Branch vitamin C Yes 1000mg Take 1,000 Univers with chris 3-29 mg by ity of hips 15:38: mouth [place] (VITAMIN C) 31 daily. Medica l 1,000 mg Branch tablet CALCIUM Yes Take by Univers CARBONATE/V 3-29 mouth. ity of ITAMIN D2 15:38: [place] (CALCIUM 31 Medical 600 + D Branch ORAL) Biotin Yes Take by Univers 10,000 mcg 3- mouth. ity of Cap 15:38: [address] [id number] Yes Take by Uni vers iron-folic - mouth. ity of acid-dha 15:38: [place] (PRENA1 31 Medical DEIDRE) Branch 30-1.4-200 mg CpID Magnesium Yes Take by Unive rs 250 mg Tab 3- mouth. ity of 15:38: [address] Branch metoprolol Yes 50mg Take 50 mg U nivers succinate 08-11 by mouth ity of XL (TOPROL 15:38: daily. [place] XL) 50 [facility] Medical 24 hr Branch tablet simvastatin Yes 20mg Take 20 mg Univers (ZOCOR) 20 08-11 by mouth ity o f mg tablet 15:38: at [place] [address] bedtime. [facility] Branch ezetimibe Yes 10mg Take 10 mg Un lore (ZETIA) 10 08-11 by mouth ity o f mg tablet 15:38: daily. [address] Branch CHOLECALCIF Yes Take by Uni vers AZAEL, - mouth. ity of VITAMIN D3, 15:38: [place] (D-3-5 31 Medical ORAL) Branch aspirin 81 Yes 81mg Take 81 mg U nivers mg chewable 08-11 by mouth ity of tablet 15:38: daily. [address] Branch DOCOSAHEXAN Yes Take by Uni vers OIC 3-29 mouth. ity of ACID/EPA 15:38: [place] (FISH OIL 31 Medical ORAL) Branch vitamin C Yes 1000mg Take 1,000 Univers with chris 3-29 mg by ity of hips 15:38: mouth [place] (VITAMIN C) 31 daily. Medica l 1,000 mg Branch tablet CALCIUM Yes Take by Univers CARBONATE/V 3-29 mouth. ity of ITAMIN D2 15:38: [place] (CALCIUM 31 Medical 600 + D Branch ORAL) Biotin Yes Take by Univers 10,000 mcg 3-29 mouth. ity of Cap 15:38: [address] [id number] 0 Yes Take by Uni vers iron-folic 3-29 mouth. ity of acid-dha 15:38: [place] (PRENA1 31 Medical DEIDRE) [place] 30-1.4-200 mg CpID Magnesium Yes Take by Unive rs 250 mg Tab 3- mouth. ity of 15:38: [address] Branch metoprolol Yes 50mg Take 50 mg U nivers succinate 08-11 by mouth ity of XL (TOPROL 15:38: daily. [place] XL) 50 mg Medical 24 hr Branch tablet simvastatin Yes 20mg Take 20 mg Univers (ZOCOR) 20 08-11 by mouth ity o f mg tablet 15:38: at [place] [address] bedtime. [facility] Branch ezetimibe Yes 10mg Take 10 mg Un lore (ZETIA) 10 08-11 by mouth ity o f mg tablet 15:38: daily. [address] Branch CHOLECALCIF Yes Take by Uni vers AZAEL, 3- mouth. ity of VITAMIN D3, 15:38: [place] (D-3-5 31 Medical ORAL) Branch aspirin 81 Yes 81mg Take 81 mg U nivers mg chewable 08-11 by mouth ity of tablet 15:38: daily. [address] Branch DOCOSAHEXAN Yes Take by Uni vers OIC 3-29 mouth. ity of ACID/EPA 15:38: [place] (FISH OIL 31 Medical ORAL) Branch vitamin C Yes 1000mg Take 1,000 Univers with chris 3-29 mg by ity of hips 15:38: mouth [place] (VITAMIN C) 31 daily. Medica l 1,000 mg Branch tablet CALCIUM 0 Yes Take by Univers CARBONATE/V 3-29 mouth. ity of ITAMIN D2 15:38: [place] (CALCIUM 31 Medical 600 + D Branch ORAL) Biotin 0 Yes Take by Univers 10,000 mcg 3-29 mouth. ity of Cap 15:38: [address] [id number] 0 Yes Take by Uni vers iron-folic 3-29 mouth. ity of acid-dha 15:38: [place] (PRENA1 31 Medical DEIDRE) Branch 30-1.4-200 mg CpID Magnesium Yes Take by Unive rs 250 mg Tab 3- mouth. ity of 15:38: [address] Branch metoprolol Yes 50mg Take 50 mg U nivers succinate 08-11 by mouth ity of XL (TOPROL 10:38: daily. [place] XL) 50 mg Medical 24 hr Branch tablet simvastatin Yes 20mg Take 20 mg Univers (ZOCOR) 20 08-11 by mouth ity o f mg tablet 10:38: at [place] [address] bedtime. Medical Branch ezetimibe Yes 10mg Take 10 mg Un lore (ZETIA) 10 08-11 by mouth ity o f mg tablet 10:38: daily. [address] Branch CHOLECALCIF Yes Take by Uni vers AAZEL, 3-29 mouth. ity of VITAMIN D3, 10:38: [place] (D-3-5 31 Medical ORAL) [place] aspirin 81 Yes 81mg Take 81 mg U nivers mg chewable 08-11 by mouth ity of tablet 10:38: daily. [address] vitamin C Yes 1000mg Take 1,000 Univers with chris 3-29 mg by ity of hips 10:38: mouth [place] (VITAMIN C) 31 daily. Medica l 1,000 mg Branch tablet CALCIUM 0 Yes Take by Univers CARBONATE/V 3-29 mouth. ity of ITAMIN D2 10:38: [place] (CALCIUM [address] [place] [address] 600 + D Branch ORAL) CHOLECALCIF Yes Take by Uni vers AZAEL, 3- mouth. ity of VITAMIN D3, 10:38: [place] (D-3-5 31 Medical ORAL) [place] aspirin 81 0 Yes 81mg Take 81 mg U nivers mg chewable -29 by mouth ity of tablet 10:38: daily. [address] vitamin C 2018 Yes 1000mg Take 1,000 Univers with chris 3-29 mg by ity of hips 10:38: mouth [place] (VITAMIN C) 31 daily. Medica l 1,000 mg Branch tablet CALCIUM 0 Yes Take by Univers CARBONATE/V 3-29 mouth. ity of ITAMIN D2 10:38: [place] (CALCIUM 31 Medical 600 + D Branch ORAL) CHOLECALCIF 20180 Yes Take by Uni vers AZAEL, 3-29 mouth. ity of VITAMIN D3, 10:38: [place] (D-3-5 31 Medical ORAL) Branch aspirin 81 Yes 81mg Take 81 mg U nivers mg chewable 3-29 by mouth ity of tablet 10:38: daily. [place] [address] Medical Branch vitamin C 2017- Yes 1000mg Take 1,000 Univers with chris 3-29 mg by ity of hips 10:38: mouth [place] (VITAMIN C) 31 daily. Medica l 1,000 mg Branch tablet CALCIUM Yes Take by Univers CARBONATE/V 3-29 mouth. ity of ITAMIN D2 10:38: [place] (CALCIUM 31 Medical 600 + D Branch ORAL) methylPREDN Yes 84mg Take 21 Uni vers ISolone 3-19 tablets by ity of (MEDROL, 00:00: mouth [place] DINORAH,) 4 mg 00 SEE-INSTRU Med ical tablets CTIONS. Branch follow package directions methylPREDN Yes 84mg Take 21 Uni vers ISolone 3-19 tablets by ity of (MEDROL, 00:00: mouth [place] DINORAH,) 4 mg 00 SEE-INSTRU Med ical tablets CTIONS. Branch follow package directions methylPREDN Yes 84mg Take 21 Uni vers ISolone 3-19 tablets by ity of (MEDROL, 00:00: mouth [place] DINORAH,) 4 mg 00 SEE-INSTRU Med ical tablets CTIONS. Branch follow package directions methylPREDN 2017-0 2023- No 84mg Take 21 Un lore ISolone 3-19 07-14 tablets by ity o f (MEDROL, 00:00: 00:00 mouth [place] DINORAH,) 4 mg 00 :00 SEE-INSTRU Med ical tablets CTIONS. Branch follow package directions methylPREDN 2017-0 2023- No 84mg Take 21 Un lore ISolone 3-19 07-14 tablets by ity o f (MEDROL, 00:00: 00:00 mouth [place] DINORAH,) 4 mg 00 :00 SEE-INSTRU Med ical tablets CTIONS. Branch follow package directions hydroCHLORO Yes Univer s thiazide 25 2-19 ity of mg tablet 00:00: [place] [facility] Branch hydroCHLORO 2017- Yes Univer s thiazide 25 2-19 ity of mg tablet 00:00: [place] 00 Medical Branch hydroCHLORO 2017-0 Yes Univer s thiazide 25 2-19 ity of mg tablet 00:00: [place] Medical Branch hydroCHLORO 2017-0 2022- No Unive rs thiazide 25 2-19 -14 ity of mg tablet 00:00: 00:00 [place] 00 :00 Medical Branch hydroCHLORO 2017-0 3- No Unive rs thiazide 25 2-19 -14 ity of mg tablet 00:00: 00:00 [place] 00 :00 Medical Branch amlodipine- 0 Yes Univer s benazepril 1-06 ity of 5-20 mg per 00:00: [place] capsule Medical Branch KCL 10 mEq 0 Yes Univers tablet 1-06 ity of 00:00: [place] Medical Branch amlodipine- 0 Yes Univer s benazepril 1-06 ity of 5-20 mg per 00:00: [place] capsule Medical Branch KCL 10 mEq 0 Yes Univers tablet 1-06 ity of 00:00: [place] Medical Branch amlodipine- 0 Yes Univer s benazepril 1-06 ity of 5-20 mg per 00:00: [place] capsule Medical Branch KCL 10 mEq 0 Yes Univers tablet 1-06 ity of 00:00: [place] Medical Branch amlodipine- 0 Yes Univer s benazepril 1-06 ity of 5-20 mg per 00:00: [place] capsule Medical Branch KCL 10 mEq 0 Yes Univers tablet 1-06 ity of 00:00: [place] Medical Branch amlodipine- 0 Yes Univer s benazepril 1-06 ity of 5-20 mg per 00:00: [place] capsule Medical Branch KCL 10 mEq 0 Yes Univers tablet 1-06 ity of 00:00: [place] Medical Branch amlodipine- 0 Yes Univer s benazepril 1-06 ity of 5-20 mg per 00:00: [place] capsule Medical Branch KCL 10 mEq 0 Yes Univers tablet 1-06 ity of 00:00: [place] Medical Branch Zocor Zocor Yes Remedios 1 tablet Common [place] in the Spirit evening [facility] Zetia Zetia Yes Remedios 1 tablet Common Mill[facility] Lotrel Lotrel Yes Remedios 1 tablet Common Millender [facility] Hydrochloro Hydrochloro Yes Remedios 1 tablet Common thiazide thiazide Millender in the [facility] Toprol XL Toprol XL Yes Remedios 1 tablet Common Millender [facility] Potassium Potassium Yes Remedios 1 tablet Common Chloride Chloride Millender with food [facility] Vitamin B Vitamin B Yes Remedios 1 tablet Common 12 12 Millender (OTC--500 Spiri t mcg) [facility] Calcium + D Calcium + D Yes Remedios 1 tablet Common Millender (OT) [facility] Multivitami Multivitami Yes Remedios 1 tablet Common n n Millender (OT--2,00 Spir it 0 IU) [facility] ASA ASA Yes Remedios 1 tablet Common Millender (OT) [facility] Vitamin D-3 Vitamin D-3 Yes Remedios 1 tablet Common Millender (OT--2,00 Spir it 0 IU) [facility] Fish Oil Fish Oil Yes Remedios 1 capsule C ommon Millender (OTC) [facility] Vitamin C Vitamin C Yes Remedios 1 tablet Common Millender (OT) [facility] Lotrel 5-20 Lotrel 5-20 No 1{table Lotrel MG MG t} 5-20 MG Multivitami Multivitami No QD Multivitam n n in Zocor 20 MG Zocor 20 MG No 1{table QD Zocor 20 t_in_th MG e_eveni ng} Vitamin D-3 Vitamin D-3 No QD Vitamin D-3 hydroCHLORO hydroCHLORO No 1{table QD hydroCHLOR thiazide 25 thiazide 25 t_in_th Othiazide MG MG e_morni 25 MG ng} ASA 81mg ASA 81mg No QD ASA 81mg Vitamin B Vitamin B No QD Vitamin B 12 12 12 Fish Oil Fish Oil No BID Fish Oil 1200 MG 1200 MG 1200 MG Vitamin C Vitamin C No QD Vitamin C 1000 MG 1000 MG 1000 MG Potassium Potassium No 1{table QD Potassium Chloride 20 Chloride 20 t_with_ Chloride MEQ MEQ food} 20 MEQ Calcium + D Calcium + D No QD Calcium + D Zetia 10 MG Zetia 10 MG No 1{table QD Zetia 10 t} MG Toprol XL Toprol XL No 1{table QD Toprol XL 50 MG 50 MG t} 50 MG Zetia 10 MG Zetia 10 MG No 1{table QD Zetia 10 t} MG Potassium Potassium No 1{table QD Potassium Chloride 20 Chloride 20 t_with_ Chloride MEQ MEQ food} 20 MEQ ASA 81mg ASA 81mg No QD ASA 81mg hydroCHLORO hydroCHLORO No 1{table QD hydroCHLOR thiazide 25 thiazide 25 t_in_th Othiazide MG MG e_morni 25 MG ng} Vitamin B Vitamin B No QD Vitamin B 12 12 12 Multivitami Multivitami No QD Multivitam n n in Vitamin D-3 Vitamin D-3 No QD Vitamin D-3 Toprol XL Toprol XL No 1{table QD Toprol XL 50 MG 50 MG t} 50 MG Vitamin C Vitamin C No QD Vitamin C 1000 MG 1000 MG 1000 MG Zocor 20 MG Zocor 20 MG No 1{table QD Zocor 20 t_in_th MG e_eveni ng} Nystatin Nystatin No Nystatin Fish Oil Fish Oil No BID Fish Oil 1200 MG 1200 MG 1200 MG Simvastatin Simvastatin No Simvastati n Acetaminoph Acetaminoph No Acetaminop en-Codeine en-Codeine hen-Codein #3 #3 e #3 Calcium + D Calcium + D No QD Calcium + D Lotrel 5-20 Lotrel 5-20 No 1{table Lotrel MG MG t} 5-20 MG Fish Oil Fish Oil No BID Fish Oil Com mon 1200 MG 1200 MG 1200 MG [facility] Calcium + D Calcium + D No QD Calcium + Common D [facility] Lotrel 5-20 Lotrel 5-20 No 1{table Lotrel Common MG MG t} 5-20 MG [facility] hydroCHLORO hydroCHLORO No 1{table QD hydroCHLOR Common thiazide 25 thiazide 25 t_in_th Othiazide Spirit MG MG e_morni 25 MG - CHI ng} [facility] Vitamin D-3 Vitamin D-3 No QD Vitamin Common D-3 [facility] Vitamin B Vitamin B No QD Vitamin B Common 12 12 12 [facility] Nystatin Nystatin No Nystatin Com mon [facility] Simvastatin Simvastatin No Simvastati Common n [facility] Acetaminoph Acetaminoph No Acetaminop Common en-Codeine en-Codeine hen-Codein Spirit #3 #3 e #3 [facility] Vitamin C Vitamin C No QD Vitamin C Common 1000 MG 1000 MG 1000 MG [facility] Multivitami Multivitami No QD Multivitam Common n n in [facility] Zocor 20 MG Zocor 20 MG No 1{table QD Zocor 20 Common t_in_th MG Spirit e_eveni - CHI ng} [facility] Zetia 10 MG Zetia 10 MG No 1{table QD Zetia 10 Common t} MG [facility] ASA 81mg ASA 81mg No QD ASA 81mg Com mon [facility] Potassium Potassium No 1{table QD Potassium Common Chloride 20 Chloride 20 t_with_ Chloride Spirit MEQ MEQ food} 20 MEQ [facility] Toprol XL Toprol XL No 1{table QD Toprol XL Common 50 MG 50 MG t} 50 MG [facility] Vitamin B Vitamin B No QD Vitamin B 12 12 12 Calcium + D Calcium + D No QD Calcium + D Hydrochloro Hydrochloro No 1{table QD Hydrochlor thiazide 25 thiazide 25 t_in_th othiazide MG MG e_morni 25 MG ng} Vitamin D-3 Vitamin D-3 No QD Vitamin D-3 Toprol XL Toprol XL No 1{table QD Toprol XL 50 MG 50 MG t} 50 MG Zetia 10 MG Zetia 10 MG No 1{table QD Zetia 10 t} MG Potassium Potassium No 1{table QD Potassium Chloride 20 Chloride 20 t_with_ Chloride MEQ MEQ food} 20 MEQ Zocor 20 MG Zocor 20 MG No 1{table QD Zocor 20 t_in_th MG e_eveni ng} Vitamin C Vitamin C No QD Vitamin C 1000 MG 1000 MG 1000 MG ASA 81mg ASA 81mg No QD ASA 81mg Fish Oil Fish Oil No BID Fish Oil 1200 MG 1200 MG 1200 MG Multivitami Multivitami No QD Multivitam n n in Lotrel 5-20 Lotrel 5-20 No 1{table Lotrel MG MG t} 5-20 MG Toprol XL Toprol XL No 1{table QD Toprol XL 50 MG 50 MG t} 50 MG Hydrochloro Hydrochloro No 1{table QD Hydrochlor thiazide 25 thiazide 25 t_in_th othiazide MG MG e_morni 25 MG ng} ASA 81mg ASA 81mg No QD ASA 81mg Zocor 20 MG Zocor 20 MG No 1{table QD Zocor 20 t_in_th MG e_eveni ng} Zetia 10 MG Zetia 10 MG No 1{table QD Zetia 10 t} MG Vitamin D-3 Vitamin D-3 No QD Vitamin D-3 Multivitami Multivitami No QD Multivitam n n in Fish Oil Fish Oil No BID Fish Oil 1200 MG 1200 MG 1200 MG Vitamin C Vitamin C No QD Vitamin C 1000 MG 1000 MG 1000 MG Calcium + D Calcium + D No QD Calcium + D Potassium Potassium No 1{table QD Potassium Chloride 20 Chloride 20 t_with_ Chloride MEQ MEQ food} 20 MEQ Lotrel 5-20 Lotrel 5-20 No 1{table Lotrel MG MG t} 5-20 MG Vitamin B Vitamin B No QD Vitamin B 12 12 12 Immunizations Ordered Immunization Filled Immunization Date Status Commen ts Source Name Name Hyalgan 20 mg Hyalgan 20 mg 2020-11-03 Completed Common S pirit 09:23:00 [facility] Hyalgan 20 mg Hyalgan 20 mg 2020-10-27 Completed Common [facility] pirit 08:47:00 [facility] Hyalgan 20 mg Hyalgan 20 mg 2020-10-27 Completed Common S pirit 08:47:00 [facility] [place] 2020-10-20 Completed [facility] 13:59:00 [facility] Hyalgan 20 mg Hyalgan 20 mg 2020-10-20 Completed Common S pirit 13:59:00 [facility] [place] 2020-10-20 Completed [facility] 13:59:00 [facility] Hyalgan 20 mg Hyalgan 20 mg 2020-10-20 Completed Common S pirit 13:59:00 [facility] Hyalgan 20 mg Hyalgan 20 mg 2020-10-20 Completed Common [facility] 13:59:00 [facility] [place] 2020-10-20 Completed [facility] 13:59:00 - [facility] Zacarias Adames 2020-10-20 Completed [facility] (Triamcinolone) (Triamcinolone) 13:58:00 - [facility] Zacarias Adames 2020-10-20 Completed [facility] (Triamcinolone) (Triamcinolone) 13:58:00 - [facility] Zacarias Adames 2020-10-20 Completed [facility] (Triamcinolone) (Triamcinolone) 13:58:00 - [facility] [place] 2020-07-07 Completed [facility] 09:44:00 - [facility] [place] 2020-07-07 Completed [facility] 09:44:00 - [facility] [place] 2020-07-07 Completed [facility] 09:44:00 - [facility] [place] 2020-07-07 Completed [facility] 09:44:00 - [facility] Zacarias Adames 2020-07-07 Completed [facility] (Triamcinolone) (Triamcinolone) 09:43:00 - [facility] Zacarias Adames 2020-07-07 Completed [facility] (Triamcinolone) (Triamcinolone) 09:43:00 - [facility] Zacarias Adames 2020-07-07 Completed [facility] (Triamcinolone) (Triamcinolone) 09:43:00 - [facility] Zacarias Adames 2020-07-07 Completed [facility] (Triamcinolone) (Triamcinolone) 09:43:00 - [facility] Betamethasone Sodium Betamethasone Sodium 2018-10-11 Completed [facility] Phosphate Phosphate 15:32:00 [facility] Betamethasone Sodium Betamethasone Sodium 2018-10-11 Completed [facility] Phosphate Phosphate 15:32:00 [facility] Betamethasone Sodium Betamethasone Sodium 2018-10-11 Completed [facility] Phosphate Phosphate 15:32:00 [facility] Betamethasone Sodium Betamethasone Sodium 2018-10-11 Completed [facility] Phosphate Phosphate 15:32:00 [facility] Betamethasone Sodium Betamethasone Sodium 2018-10-11 Completed [facility] Phosphate Phosphate 15:32:00 [facility] Betamethasone Sodium Betamethasone Sodium 2018-10-11 Completed [facility] Phosphate Phosphate 15:32:00 [facility] Betamethasone Sodium Betamethasone Sodium 2018-10-11 Completed [facility] Phosphate Phosphate 15:32:00 [facility] Betamethasone Sodium Betamethasone Sodium 2018-10-11 Completed [facility] Phosphate Phosphate 15:32:00 [facility] Betamethasone Sodium Betamethasone Sodium 2018-10-11 Completed [facility] Phosphate Phosphate 15:32:00 - [facility] Betamethasone Sodium Betamethasone Sodium 2018-10-11 Completed [facility] Phosphate Phosphate 15:32:00 [facility] LIDOCAINE HCL 10MG/ML LIDOCAINE HCL 2018-10-11 Completed [facility] 10MG/ML 15:31:00 [facility] LIDOCAINE HCL 10MG/ML LIDOCAINE HCL 2018-10-11 Completed [facility] 10MG/ML 15:31:00 [facility] LIDOCAINE HCL 10MG/ML LIDOCAINE HCL 2018-10-11 Completed [facility] 10MG/ML 15:31:00 [facility] LIDOCAINE HCL 10MG/ML LIDOCAINE HCL 2018-10-11 Completed [facility] 10MG/ML 15:31:00 [facility] LIDOCAINE HCL 10MG/ML LIDOCAINE HCL 2018-10-11 Completed [facility] 10MG/ML 15:31:00 [facility] LIDOCAINE HCL 10MG/ML LIDOCAINE HCL 2018-10-11 Completed [facility] 10MG/ML 15:30:00 [facility] LIDOCAINE HCL 10MG/ML LIDOCAINE HCL 2018-10-11 Completed [facility] 10MG/ML 15:30:00 [facility] LIDOCAINE HCL 10MG/ML LIDOCAINE HCL 2018-10-11 Completed [facility] 10MG/ML 15:30:00 [facility] LIDOCAINE HCL 10MG/ML LIDOCAINE HCL 2018-10-11 Completed [facility] 10MG/ML 15:30:00 [facility] LIDOCAINE HCL 10MG/ML LIDOCAINE HCL 2018-10-11 Completed [facility] 10MG/ML 15:30:00 [facility] LIDOCAINE HCL 10MG/ML LIDOCAINE HCL 2018-06-21 Completed [facility] 10MG/ML 09:11:00 [facility] LIDOCAINE HCL 10MG/ML LIDOCAINE HCL 2018-06-21 Completed [facility] 10MG/ML 09:11:00 [facility] LIDOCAINE HCL 10MG/ML LIDOCAINE HCL 2018-06-21 Completed [facility] 10MG/ML 09:11:00 [facility] LIDOCAINE HCL 10MG/ML LIDOCAINE HCL 2018-06-21 Completed [facility] 10MG/ML 09:11:00 [facility] LIDOCAINE HCL 10MG/ML LIDOCAINE HCL 2018-06-21 Completed [facility] 10MG/ML 09:11:00 [facility] LIDOCAINE HCL 10MG/ML LIDOCAINE HCL 2018-06-21 Completed [facility] 10MG/ML 09:09:00 [facility] LIDOCAINE HCL 10MG/ML LIDOCAINE HCL 2018-06-21 Completed [facility] 10MG/ML 09:09:00 [facility] LIDOCAINE HCL 10MG/ML LIDOCAINE HCL 2018-06-21 Completed [facility] 10MG/ML 09:09:00 - [facility] LIDOCAINE HCL 10MG/ML LIDOCAINE HCL 2018-06-21 Completed [facility] 10MG/ML 09:09:00 [facility] LIDOCAINE HCL 10MG/ML LIDOCAINE HCL 2018-06-21 Completed [facility] 10MG/ML 09:09:00 [facility] Betamethasone Sodium Betamethasone Sodium 2018-06-21 Completed [facility] Phosphate Phosphate 09:08:00 [facility] Betamethasone Sodium Betamethasone Sodium 2018-06-21 Completed [facility] Phosphate Phosphate 09:08:00 [facility] Betamethasone Sodium Betamethasone Sodium 2018-06-21 Completed [facility] Phosphate Phosphate 09:08:00 [facility] Betamethasone Sodium Betamethasone Sodium 2018-06-21 Completed [facility] Phosphate Phosphate 09:08:00 [facility] Betamethasone Sodium Betamethasone Sodium 2018-06-21 Completed [facility] Phosphate Phosphate 09:08:00 [facility] Betamethasone Sodium Betamethasone Sodium 2018-06-21 Completed [facility] Phosphate Phosphate 09:06:00 - [facility] Betamethasone Sodium Betamethasone Sodium 2018-06-21 Completed [facility] Phosphate Phosphate 09:06:00 - [facility] Betamethasone Sodium Betamethasone Sodium 2018-06-21 Completed [facility] Phosphate Phosphate 09:06:00 - [facility] Betamethasone Sodium Betamethasone Sodium 2018-06-21 Completed [facility] Phosphate Phosphate 09:06:00 - [facility] Betamethasone Sodium Betamethasone Sodium 2018-06-21 Completed [facility] Phosphate Phosphate 09:06:00 - [facility] [place] 2018-01-10 Completed [facility] 09:30:00 - [facility] [place] 2018-01-10 Completed [facility] 09:30:00 - [facility] Depo Medrol (40mg) Depo Medrol (40mg) 2018-01-10 Completed [facility] 09:30:00 - [facility] [place] 2018-01-10 Completed [facility] 09:30:00 - [facility] Depo Medrol (40mg) Depo Medrol (40mg) 2018-01-10 Completed [facility] 09:30:00 - [facility] [place] 2018-01-10 Completed [facility] 09:30:00 - [facility] Depo Medrol (40mg) Depo Medrol (40mg) 2018-01-10 Completed [facility] 09:30:00 - [facility] Depo Medrol (40mg) Depo Medrol (40mg) 2018-01-10 Completed [facility] 09:30:00 - [facility] [place] 2018-01-10 Completed [facility] 09:30:00 - [facility] Depo Medrol (40mg) Depo Medrol (40mg) 2018-01-10 Completed [facility] 09:30:00 [facility] Vital Signs Vital Name Observation Time Observation Value Comments Source Systolic blood 2022-11-26 163 mm[Hg] [facility] 13:57:00 [facility] Diastolic blood 2022-11-26 78 mm[Hg] [facility] pressure 13:57:00 [facility] Heart rate 2022-11-26 69 /min [facility] 13:56:00 [facility] Respiratory rate 2022-11-26 18 /min [facility] 13:56:00 [facility] Body height 2022-11-26 166.4 cm [facility] 13:56:00 [facility] Body weight 2022-11-26 74.163 kg [facility] 13:56:00 [facility] BMI 2022-11-26 26.79 kg/m2 [facility] 13:56:00 [facility] Oxygen saturation 2022-11-26 98 /min [facility] Arterial blood 13:56:00 [facility] by Pulse oximetry [place] height 2020-11-03 65 [in_i] [facility] - 09:15:00 [facility] weight 2020-11-03 179 [lb_av] [facility] - 09:15:00 [facility] bmi 2020-11-03 29.78 kg/m2 [facility] - 09:15:00 [facility] blood pressure 2020-11-03 126 mm[Hg] [facility] - systolic 09:15:00 [facility] blood pressure 2020-11-03 72 mm[Hg] [facility] - diastolic 09:15:00 [facility] height 2020-10-27 65 [in_i] [facility] - 08:45:00 [facility] weight 2020-10-27 179 [lb_av] [facility] - 08:45:00 [facility] temperature 2020-10-27 97.1 [degF] [facility] - 08:45:00 [facility] bmi 2020-10-27 29.78 kg/m2 [facility] - 08:45:00 [facility] blood pressure 2020-10-27 126 mm[Hg] [facility] - systolic 08:45:00 [facility] blood pressure 2020-10-27 72 mm[Hg] [facility] - diastolic 08:45:00 [facility] height 2020-10-20 65 [in_i] [facility] - 13:30:00 [facility] weight 2020-10-20 179.10 [lb_av] [facility] - 13:30:00 [facility] bmi 2020-10-20 29.8 kg/m2 [facility] - 13:30:00 [facility] blood pressure 2020-10-20 119 mm[Hg] [facility] - systolic 13:30:00 [facility] blood pressure 2020-10-20 72 mm[Hg] [facility] - diastolic 13:30:00 [facility] height 2020-07-07 65 [in_i] [facility] - 09:30:00 [facility] weight 2020-07-07 193.3 [lb_av] [facility] - 09:30:00 [facility] bmi 2020-07-07 32.16 kg/m2 [facility] - 09:30:00 [facility] blood pressure 2020-07-07 124 mm[Hg] [facility] - systolic 09:30:00 [facility] blood pressure 2020-07-07 72 mm[Hg] [facility] - diastolic 09:30:00 [facility] Systolic blood 2019-07-24 132 mm[Hg] [place] [facility] [place] [facility] 14:59:00 Position: Sitting Diastolic blood 2019-07-24 81 mm[Hg] [place] [facility] [place] [facility] 14:59:00 Position: Sitting Body temperature 2019-07-24 97.9 [degF] [facility] 14[facility] Heart Rate 2019-07-24 73 /min [facility] 14:59:00 Respiratory rate 2019-07-24 16 /min [facility] 14:59:00 Systolic blood 2019-07-12 138 mm[Hg] [place] [facility] [facility] 10:58:00 Position: Sitting Diastolic blood 2019-07-12 74 mm[Hg] [place] [facility] [place] [facility] 10:58:00 Position: Sitting Body height 2019-07-12 65.5 [in_us] [facility] 10:58:00 Weight 2019-07-12 188 [lb_av] [facility] 10:58:00 Body mass index 2019-07-12 30.81 kg/m2 [facility] (BMI) [Ratio] 10:58:00 Body temperature 2019-07-12 97.6 [degF] [facility] 10:58:00 Heart Rate 2019-07-12 67 /min [facility] 10:58:00 Respiratory rate 2019-07-12 16 /min [facility] 10:[facility] Procedures Procedure Date / Time Performing Clinician Source Performed COMP. METABOLIC PANEL 2022-11-26 15:22:00 Ayanna Mcclendon [facility] ([id number]) [facility] CBC WITH DIFF 2022-11-26 15:22:00 [facility] HCV ANTIBODY 2022-11-26 15:22:00 [facility] [id number] 2022-09-01 00:00:00 CUEJO.01 [facility] [id number] 2022-09-01 00:00:00 CUEJO.01 [facility] [id number] 2022-09-01 00:00:00 CUEJO.01 [facility] [id number] 2022-08-31 00:00:00 CHAAB.01 [facility] [id number] 2022-08-31 00:00:00 CHAAB.01 [facility] [id number] 2022-08-31 00:00:00 CHAAB.01 [facility] [id number] 2022-08-31 00:00:00 CHAAB.01 [facility] US ABDOMEN COMPLETE 2020-06-18 18:16:01 Requisition, Paper Unive [facility] DEXA AXIAL (HIP AND 2020-06-18 17:55:12 [facility]quisition[facility] Paper [facility] [LH] TSH+Free T4 2019-07-12 00:00:00 [facility] Decompression Median Nerve At Carpal Tunnel History [facility] Cardiac cath [facility] His ablation [facility] of Treatment Of [facility] Femoral Fracture Encounters Start End Encounter Admission Attending Care Care Encounter Source Date/Time Date/Time Type Type Clinicians Facility Department ID 2021-06-10 Outpatient FAVIOLA [facility]oaLC [id number] Common 12:27:58 Remedios [id number] [facility] 2021-06-10 Outpatient FAVIOLA Gamboa [facility] [id number] Common 12:27:22 Remedios [id number] [facility] 2021-06-10 Outpatient FAVIOLA Gamboa [facility] [id number] Common 11:01:08 Remedios [id number] [facility] 2021-06-10 Outpatient FAVIOLA Gamboa [facility] [id number] Common 11:00:53 Remedios [id number] [facility] 2022-11-26 2022-11-26 Administrative Program Specialist Lab, Ang - Froylan [facility] [id number] Univers 10:00:00 10:15:00 Visit Hakan [facility] [id number] ity of [place] [id number] Jefry as MYNOR?BLEA [id number] [address] OFFICE [facility] 2022-11-26 2022-11-26 [facility] [id number] Univers 09:00:00 10:00:17 Visit [facility] [id number] it y of [place] [id number] Jefry as MYNOR?BLEA [id number] [address] OFFICE [facility] 2022-11-26 2022-11-26 Outpatient Patricio MCCLENDON [facility] [id number] [facility] 09:00:00 10:00:17 AYANNA ity [facility] 2022-08-31 2022-09-02 Inpatient TYESHA Dexter INTE [id number] [facility] 05:48:00 13:25:00 [facility] 37 [facility] 2022-08-27 2022-08-27 Outpatient TYESHA Dexter 3DAY [id number] [facility] 08:00:00 09:00:00 [facility] 23 [facility] 2022-05-18 2022-05-18 Outpatient TYESHA Kidd [facility] [id number] [facility] 09:18:00 09:18:00 He 13 [facility] 2021-03-31 2021-03-31 Inpatient TYESHA Mendez OUTD [id number] [facility] 05:20:00 05:20:00 João 01 [facility] 2021-02-12 2021-02-12 Outpatient MIKE Spicer [id number] [facility] 07:45:00 07:45:00 [facility]ufaddal [facility] 2020-11-03 2020-11-03 (IN/ASP) STLMLC STLMLC [id number] C ommon 00:00:00 00:00:00 INJ ASP [facility] 2020-10-27 2020-10-27 (IN/ASP) STLMLC STLMLC [id number] C ommon 00:00:00 00:00:00 INJ ASP [facility] 2020-10-20 2020-10-20 OFFICE STLMLC STLMLC [id number] Co mmon 00:00:00 00:00:00 VISIT [facility] ESTAB PT - CHI LEVEL 4 [facility] 2020-07-07 2020-07-07 OFFICE STLMLC STLMLC [id number] Co mmon 00:00:00 00:00:00 VISIT [facility] ESTAB PT - CHI LEVEL 4 [facility] 2020-07-03 2020-07-03 (TEL) STLMLC STLMLC [id number] Co mmon 00:00:00 00:00:00 [facility] 2020-06-18 2020-06-18 Hospital [facility], [facility] [id number] Univers 11:18:36 23:59:00 Encounter Attending Giovanny [id number] ity of [place] [id number] [facility] [id number] [facility] [address] 2020-06-18 2020-06-18 Hospital Unknown, [facility] [id number] Univers 11:18:22 23:59:00 Encounter Attending Giovanny [id number] ity of [place] [id number] [facility] [id number] [facility] [address] 2020-06-18 2020-06-18 Hospital Unknown, [facility] [id number] Univers 11:15:00 11:17:00 Encounter Attending Giovanny [id number] ity [place] [id number] [facility] [id number] [facility] [address] 2020-06-18 2020-06-18 Outpatient R [facility] [id number] Univers 00:00:00 00:00:00 ity [facility] 2019-11-26 2019-11-26 Out[facility] [id number] Common 11:00:00 11:00:00 t [facility] [address] [facility] 2019-11-26 2019-11-26 [facility] [id number] Common 10:40:00 10:40:00 t [facility] [address] [facility] 2019-09-10 2019-09-10 [id number] [facility] 14:37:00 14:37:00 t [facility] [address] [facility] 2019-09-06 2019-09-06 [facility] [id number] Common 11:57:00 11:57:00 t [facility] [address] [facility] 2019-07-24 2019-07-24 Appointmen MAGGY WOODWARDpecia [phone] [place] 13:00:00 13:00:00 t; VALENTIN WOODWARD lty - Ph ysici LAVANYA, M.D. [place] ans M.D. 2019-07-12 2019-07-12 Appointmen MAGGY WOODWARD [phone] [place] 10:30:00 10:30:00 t; VALENTIN WOODWARD lty - Ph ysici LAVANYA, M.D. [place] ans M.D. 2019-06-11 2019-06-11 [facility]patient [facility] [id number] [place] 17:40:00 17:40:00 t [facility] [address] [facility] 2019-05-31 2019-05-31 [facility] [id number] [place] 10:45:00 10:45:00 t [facility] [address] [facility] 2019-03-05 2019-03-05 [facility] [id number] [place] 10:20:00 10:20:00 t [facility] [address] [facility] 2019-02-22 2019-02-22 [facility] 27 [id number] [place] 08:00:00 08:00:00 [facility] 2019-02-05 2019-02-05 [facility] 27 [id number] [place] 15:00:00 15:00:00 t [facility] 2019-01-19 2019-01-19 [facility] [id number] Common 09:00:00 09:00:00 t [facility] 2019-01-16 2019-01-16 [facility] 27 [id number] [place] 16:23:00 16:23:[address] [facility] [address] [facility] 2019-01-09 2019-01-09 [facility] 27 [id number] [place] 14:00:00 14:00:00 t [facility] 2018-12-11 2018-12-11 [facility] 25 [id number] Common 10:40:00 10:40:[address] [facility] [address] [facility] 2018-08-24 2018-08-24 [facility] 25 [id number] [place] 08:00:00 08:00:[address] [facility] 2018-08-15 2018-08-15 [facility] 25 [id number] [place] 14:30:00 14:30:[address] [facility] 2018-08-11 2018-08-11 [facility] [id number] [place] 13:13:00 13:13:[address] [facility] 2018-08-08 2018-08-08 [facility] 24 [id number] Common 09:33:00 09:33:[address] [facility] 2018-06-21 2018-06-21 [facility] 23 [id number] [place] 08:30:00 08:30:00 t [facility] Bone [facility] Spiri t and Joint [facility] 2018-06-06 2018-06-06 [facility] 23 [id number] Common 08:30:00 08:30:[address] [facility] [address] [facility] 2018-06-01 2018-06-01 [facility] 23 [id number] Common 13:00:00 13:00:[address] [facility] 2018-05-23 2018-05-23 [facility] [id number] Common 11:00:00 11:00:[address] [facility] [address] [facility] 2018-02-08 2018-02-08 [facility] 15 [id number] Common 09:00:00 09:00:00 t Bone Bone and Spiri t and Joint [facility] 2018-01-10 2018-01-10 [facility] 15 [id number] Common 09:00:00 09:00:00 t [facility] Sp[facility] t [facility] 2017-12-02 2017-12-02 [facility] [id number] Common 09:00:00 09:00:00 t [facility] Sp[facility] t [facility] Results Test Description Test Time Test Comments Results Result Comments Source HCV ANTIBODY 2022-11-26 21:01:48 Test Item Value Reference Range Interpretation Comme nts HCV Ab (test code = 39024-9) Negative HCV Semi-Quantitative (test code = 67901-1) 0.04 [id number] 21:01:48 Test Item Value Reference Range Interpretation Comments HCV Ab (test code = 52964-5) Negative HCV Semi-Quantitative (test code = 0.04 74810-2) [facility] MET[facility]OL[facility] PAN[facility] ([id number])2022-11-26 21:00:51 Test Item Value Reference Range Interpretation Comments NA (test code = 144 mmol/L 135-145 2899879440) K (test code = 4.1 mmol/L 3.5-5.0 5537644750) CL (test code = 104 mmol/L 98-108 6370201096) CO2 TOTAL (test code = 32 mmol/L 23-31 H 6756464037) AGAP (test code = 8 2-16 8038494003) BUN (test code = 23 mg/dL 7-23 8870733957) GLUCOSE (test code = 88 mg/dL 70-110 1105221664) CREATININE (test code = 0.73 mg/dL 0.50-1.04 0764013263) TOTAL BILI (test code = 1.0 mg/dL 0.1-1.3 4850951214) CALCIUM (test code = 9.9 mg/dL 8.6-10.6 9673646847) T PROTEIN (test code = 8.2 g/dL 6.3-8.2 3580636416) ALBUMIN (test code = 4.8 g/dL 3.5-5.0 1805649622) ALK PHOS (test code = 98 U/L 34-122 7577879516) ALTv (test code = 35 U/L 5-35 1742-6) AST(SGOT) (test code = 43 U/L 13-40 H 2487897245) eGFR (test code = 77.7 mL/min/1.73m2 9605166997) NICOLE (test code = NICOLE) Association of Glomerular Filtration Rate (GFR) and Staging of Kidney Disease* + --+ --+ ------+| GFR (mL/min/1.73 m2) ?| With Kidney Damage ?| ?Without Kidney Damage+ --------+ --------+ +| ?>90 ?| ?Stage one ?| ? Normal ?+ ---+ ---+ -------+| ?60-89 ?| ?Stage two ?| ? Decreased GFR ? + --+ --+ ------+| ?30-59 ?| ?Stage three ?| ? Stage three ? + --+ --+ ------+| ?15-29 ?| ?Stage four ? | ? Stage four ?+ ---+ ---+ -------+| ?<15 (or dialysis) ? ?| ?Stage five ? | ? Stage five ?+ ---+ ---+ -------+ *Each stage assumes the associated GFR level has been in effect for at least three months. ?Stages 1 to 5, with or without kidney disease, indicate chronic kidney disease. Notes: Determination of stages one and two (with eGFR >59mL/min/1.73 m2) requires estimation of kidney damage for at least three months as defined by structural or functional abnormalities of the kidney, manifested by either:Pathological abnormalities or Markers of kidney damage (including abnormalities in the composition of the blood or urine or abnormalities in imaging tests). Lab Interpretation Abnormal (test code = 70869-9) [facility]. METABOLIC PANEL ([id number])2022-11-26 21:00:51 Test Item Value Reference Range Interpretation Comments NA (test code = 144 mmol/L 135-145 7451903425) K (test code = 4.1 mmol/L 3.5-5.0 8557148217) CL (test code = 104 mmol/L 98-108 6757190983) CO2 TOTAL (test code = 32 mmol/L 23-31 H 2767875420) AGAP (test code = 8 2-16 7447547306) BUN (test code = 23 mg/dL 7-23 3910487214) GLUCOSE (test code = 88 mg/dL 70-110 7383891605) CREATININE (test code = 0.73 mg/dL 0.50-1.04 8771449070) TOTAL BILI (test code = 1.0 mg/dL 0.1-1.1 2428815188) CALCIUM (test code = 9.9 mg/dL 8.6-10.6 1596858648) T PROTEIN (test code = 8.2 g/dL 6.3-8.2 8583049735) ALBUMIN (test code = 4.8 g/dL 3.5-5.0 3776018144) ALK PHOS (test code = 98 U/L 34-122 3085611581) ALTv (test code = 35 U/L 5-35 1742-6) AST(SGOT) (test code = 43 U/L 13-40 H 8839396048) eGFR (test code = 77.7 mL/min/1.73m2 2516490379) NICOLE (test code = NICOLE) Association of Glomerular Filtration Rate (GFR) and Staging of Kidney Disease* + --+ --+ ------+| GFR (mL/min/1.73 m2) ?| With Kidney Damage ?| ?Without Kidney Damage+ --------+ --------+ +| ?>90 ?| ?Stage one ?| ? Normal ?+ ---+ ---+ -------+| ?60-89 ?| ?Stage two ?| ? Decreased GFR ? + --+ --+ ------+| ?30-59 ?| ?Stage three ?| ? Stage three ? + --+ --+ ------+| ?15-29 ?| ?Stage four ? | ? Stage four ?+ ---+ ---+ -------+| ?<15 (or dialysis) ? ?| ?Stage five ? | ? Stage five ?+ ---+ ---+ -------+ *Each stage assumes the associated GFR level has been in effect for at least three months. ?Stages 1 to 5, with or without kidney disease, indicate chronic kidney disease. Notes: Determination of stages one and two (with eGFR >59mL/min/1.73 m2) requires estimation of kidney damage for at least three months as defined by structural or functional abnormalities of the kidney, manifested by either:Pathological abnormalities or Markers of kidney damage (including abnormalities in the composition of the blood or urine or abnormalities in imaging tests). Lab Interpretation Abnormal (test code = 16707-0) [facility] WITH [id number] 20:35:45 Test Item Value Reference Range Interpretation Comments WBC (test code = 7.50 See_Comment [Automated 4432-2) message] The sy stem which generated this result transmitted reference range : 4.30 - 11.10 10*3/?L. The reference range was not used to interpret this result as normal/abnormal . RBC (test code = 4.72 See_Comment [Automated 789-8) message] The sy stem which generated this result transmitted reference range : 3.93 - 5.25 10*6/?L. The reference range was not used to interpret this result as normal/abnormal . HGB (test code = 14.6 g/dL 11.6-15.0 718-7) HCT (test code = 44.3 % 35.7-45.2 4544-3) MCV (test code = 93.9 fL 80.6-95.5 787-2) MCH (test code = 30.9 pg 25.9-32.8 785-6) MCHC (test code = 33.0 g/dL 31.6-35.1 786-4) RDW-SD (test code = 44.9 fL 39.0-49.9 83292-5) RDW-CV (test code = 12.9 % 12.0-15.5 788-0) PLT (test code = 166 See_Comment [Automated 777-3) message] The sy stem which generated this result transmitted reference range : 166 - 358 10*3/ ?L. The reference r maryam was not used to interpret this result as normal/abnormal . MPV (test code = 11.4 fL 9.5-12.9 61716-6) NRBC/100 WBC (test 0.0 See_Comment [Automat ed code = 2258576252) message] The system which generated this result transmitted reference range : 0.0 - 10.0 /100 WBCs. The refer ence range was not u sed to interpret th is result as normal/abnormal . NRBC x10^3 (test code See_Comment [Auto mated = 5576383734) message] The s ystem which generated this result transmitted reference range : 10*3/?L. The reference range was not used to interpret this result as normal/abnormal . GRAN MAT (NEUT) % 53.3 % (test code = 770-8) IMM GRAN % (test code 0.10 % = 9323136279) LYMPH % (test code = 23.9 % 736-9) MONO % (test code = 13.5 % 5905-5) EOS % (test code = 7.6 % 713-8) BASO % (test code = 1.6 % 706-2) GRAN MAT x10^3(ANC) 4.00 10*3/uL 1.88-7.09 (test code = 9567763300) IMM GRAN x10^3 (test 0.00-0.06 code = 9113163863) LYMPH x10^3 (test code 1.79 10*3/uL 1.32-3.29 = 731-0) MONO x10^3 (test code 1.01 10*3/uL 0.33-0.92 H = 742-7) EOS x10^3 (test code = 0.57 10*3/uL 0.03-0.39 H 711-2) BASO x10^3 (test code 0.12 10*3/uL 0.01-0.07 H = 704-7) Lab Interpretation Abnormal (test code = 43424-4) [facility] WITH [id number] 20:35:45 Test Item Value Reference Range Interpretation Comments WBC (test code = 7.50 See_Comment [Automated 1377-2) message] The sy stem which generated this result transmitted reference range : 4.30 - 11.10 10*3/?L. The reference range was not used to interpret this result as normal/abnormal . RBC (test code = 4.72 See_Comment [Automated 120-8) message] The sy stem which generated this result transmitted reference range : 3.93 - 5.25 10*6/?L. The reference range was not used to interpret this result as normal/abnormal . HGB (test code = 14.6 g/dL 11.6-15.0 718-7) HCT (test code = 44.3 % 35.7-45.2 4544-3) MCV (test code = 93.9 fL 80.6-95.5 787-2) MCH (test code = 30.9 pg 25.9-32.8 785-6) MCHC (test code = 33.0 g/dL 31.6-35.1 786-4) RDW-SD (test code = 44.9 fL 39.0-49.9 99898-7) RDW-CV (test code = 12.9 % 12.0-15.5 788-0) PLT (test code = 166 See_Comment [Automated 777-3) message] The sy stem which generated this result transmitted reference range : 166 - 358 10*3/ ?L. The reference r maryam was not used to interpret this result as normal/abnormal . MPV (test code = 11.4 fL 9.5-12.9 94859-8) NRBC/100 WBC (test 0.0 See_Comment [Automat ed code = 2052082516) message] The system which generated this result transmitted reference range : 0.0 - 10.0 /100 WBCs. The refer ence range was not u sed to interpret th is result as normal/abnormal . NRBC x10^3 (test code See_Comment [Auto mated = 7215159376) message] The s ystem which generated this result transmitted reference range : 10*3/?L. The reference range was not used to interpret this result as normal/abnormal . GRAN MAT (NEUT) % 53.3 % (test code = 770-8) IMM GRAN % (test code 0.10 % = 6265357989) LYMPH % (test code = 23.9 % 736-9) MONO % (test code = 13.5 % 5905-5) EOS % (test code = 7.6 % 713-8) BASO % (test code = 1.6 % 706-2) GRAN MAT x10^3(ANC) 4.00 10*3/uL 1.88-7.09 (test code = 8006630536) IMM GRAN x10^3 (test 0.00-0.06 code = 4819835127) LYMPH x10^3 (test code 1.79 10*3/uL 1.32-3.29 = 731-0) MONO x10^3 (test code 1.01 10*3/uL 0.33-0.92 H = 742-7) EOS x10^3 (test code = 0.57 10*3/uL 0.03-0.39 H 711-2) BASO x10^3 (test code 0.12 10*3/uL 0.01-0.07 H = 704-7) Lab Interpretation Abnormal (test code = 84298-6) [facility] [id number] 10:45:00 Test Item Value Reference Range Interpretation Comments SODIUM (test code = 137 mEq/L 134-147 N NA) POTASSIUM (test code 3.5 mEq/L 3.4-5.0 N = K) CHLORIDE (test code 104 mEq/L 100-108 N = CL) CARBON DIOXIDE (test 26 mEq/l 21-33 N code = CO2) ANION GAP (test code 11 0-20 N = GAP) GLUCOSE (test code = 142 mg/dL 70-110 H GLU) BLOOD UREA NITROGEN 14 mg/dL 7-18 N (test code = BUN) GLOMERULAR 90.7 70-80 H The Glomerular FILTRATION RATE Filtration R ate is a (test code = GFR) calculated parameterbased on serum Creatinine, pat ient age and sex. GFR va luesless than 60 mL/min/ 1.73 square meters a re indicative ofCh ronic Kidney Disease. Values less than 15 mL/min/1.73squa re meters indicate Kidney failure. The calculation forGFR is based on the CKD-EPI (2020) calculat ion. This formulais race indifferent and is the recommended for oziel for GFRby the [facility] for Adults.The GFR will not calculate if th e sex is unknown or if thepatient's ag e is <18 years. CREATININE (test 0.7 mg/dL 0.6-1.3 N code = CREAT) CALCIUM (test code = 8.6 mg/dL 8.0-10.5 N CA) [id number] 10:45:00 Test Item Value Reference Range Interpretation Comments MAGNESIUM (test code = MAG) 1.88 mg/dL 1.80-2.40 N CBC W/AUTO [id number] 10:28:00 Test Item Value Reference Range Interpretation Comments WHITE BLOOD CELL (test code = 14.7 x10 3/uL 4.5-11.0 H WBC) RED BLOOD CELL (test code = 4.21 x10 6/uL 3.54-5.02 N RBC) HEMOGLOBIN (test code = HGB) 13.2 g/dL 11.0-15.0 N HEMATOCRIT (test code = HCT) 38.0 % 33.0-45.0 N MEAN CELL VOLUME (test code = 90.3 fL 81.0-99.0 N MCV) MEAN CELL HGB (test code = 31.4 pg 27.0-33.0 N MCH) MEAN CELL HGB CONCETRATION 34.7 g/dL 33.0-37.0 N (test code = MCHC) RED CELL DISTRIBUTION WIDTH CV 13.1 % 11.5-14.5 N (test code = RDW) RED CELL DISTRIBUTION WIDTH SD 42.8 fL 37.0-54.0 N (test code = RDW-SD) PLATELET COUNT (test code = 100 x10 3/uL 150-400 L PLT) MEAN PLATELET VOLUME (test 9.7 fL 7.0-9.0 H code = MPV) NEUTROPHIL % (test code = NT%) 76.3 % 56.0-77.0 N IMMATURE GRANULOCYTE % (test 0.7 % 0.0-2.0 N code = IG%) LYMPHOCYTE % (test code = LY%) 9.4 % 14.0-32.0 L MONOCYTE % (test code = MO%) 12.8 % 4.8-9.0 H EOSINOPHIL % (test code = EO%) 0.5 % 0.3-3.7 N BASOPHIL % (test code = BA%) 0.3 % 0.0-2.0 N NUCLEATED RBC % (test code = 0.0 % 0-0 N NRBC%) NEUTROPHIL # (test code = NT#) 11.18 x10 3/uL 2.0-7.6 H IMMATURE GRANULOCYTE # (test 0.10 x10 3/uL 0.00-0.03 H code = IG#) LYMPHOCYTE # (test code = LY#) 1.37 x10 3/uL 1.0-3.8 N MONOCYTE # (test code = MO#) 1.87 x10 3/uL 0.1-0.8 H EOSINOPHIL # (test code = EO#) 0.08 x10 3/uL 0.0-0.2 N BASOPHIL # (test code = BA#) 0.05 x10 3/uL 0.0-0.2 N NUCLEATED RBC # (test code = 0.00 x10 3/uL 0.0-0.1 N NRBC#) MANUAL DIFF REQUIRED (test NO code = MDIFF) GLUCOSE [id number] 17:09:00 Test Item Value Reference Range Interpretation Comments GLUCOSE BEDSIDE (test 134 MG/DL 70-110 H [facility] med by certified code = GLUBED) 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 [facility] BASIC METABOLIC [id number] 07:34:00 Test Item Value Reference Range Interpretation Comments SODIUM (test code = 139 mEq/L 134-147 N NA) POTASSIUM (test code 3.9 mEq/L 3.4-5.0 N = K) CHLORIDE (test code 105 mEq/L 100-108 N = CL) CARBON DIOXIDE (test 29 mEq/l 21-33 N code = CO2) ANION GAP (test code 9 0-20 N = GAP) GLUCOSE (test code = 136 mg/dL 70-110 H GLU) BLOOD UREA NITROGEN 13 mg/dL 7-18 N (test code = BUN) GLOMERULAR 90.7 70-80 H The Glomerular FILTRATION RATE Filtration R ate is a (test code = GFR) calculated parameterbased on serum Creatinine, pat ient age and sex. GFR va luesless than 60 mL/min/ 1.73 square meters a re indicative ofCh ronic Kidney Disease. Values less than 15 mL/min/1.73squa re meters indicate Kidney failure. The calculation forGFR is based on the CKD-EPI (2020) calculat ion. This formulais race indifferent and is the recommended for oziel for GFRby the [facility] on for Adults.The GFR will not calculate if th e sex is unknown or if thepatient's ag e is <18 years. CREATININE (test 0.7 mg/dL 0.6-1.3 N code = CREAT) CALCIUM (test code = 9.0 mg/dL 8.0-10.5 N CA) [id number] 07:34:00 Test Item Value Reference Range Interpretation Comments MAGNESIUM (test code = MAG) 1.93 mg/dL 1.80-2.40 N CBC W/AUTO [id number] 07:26:00 Test Item Value Reference Range Interpretation Comments WHITE BLOOD CELL (test code = 12.0 x10 3/uL 4.5-11.0 H WBC) RED BLOOD CELL (test code = 4.13 x10 6/uL 3.54-5.02 N RBC) HEMOGLOBIN (test code = HGB) 12.9 g/dL 11.0-15.0 N HEMATOCRIT (test code = HCT) 37.9 % 33.0-45.0 N MEAN CELL VOLUME (test code = 91.8 fL 81.0-99.0 N MCV) MEAN CELL HGB (test code = MCH) 31.2 pg 27.0-33.0 N MEAN CELL HGB CONCETRATION 34.0 g/dL 33.0-37.0 N (test code = MCHC) RED CELL DISTRIBUTION WIDTH CV 12.7 % 11.5-14.5 N (test code = RDW) RED CELL DISTRIBUTION WIDTH SD 42.8 fL 37.0-54.0 N (test code = RDW-SD) PLATELET COUNT (test code = 144 x10 3/uL 150-400 L PLT) MEAN PLATELET VOLUME (test code 10.6 fL 7.0-9.0 H = MPV) NEUTROPHIL % (test code = NT%) 81.6 % 56.0-77.0 H IMMATURE GRANULOCYTE % (test 0.3 % 0.0-2.0 N code = IG%) LYMPHOCYTE % (test code = LY%) 5.9 % 14.0-32.0 L MONOCYTE % (test code = MO%) 10.0 % 4.8-9.0 H EOSINOPHIL % (test code = EO%) 1.8 % 0.3-3.7 N BASOPHIL % (test code = BA%) 0.4 % 0.0-2.0 N NUCLEATED RBC % (test code = 0.0 % 0-0 N NRBC%) NEUTROPHIL # (test code = NT#) 9.74 x10 3/uL 2.0-7.6 H IMMATURE GRANULOCYTE # (test 0.04 x10 3/uL 0.00-0.03 H code = IG#) LYMPHOCYTE # (test code = LY#) 0.71 x10 3/uL 1.0-3.8 L MONOCYTE # (test code = MO#) 1.20 x10 3/uL 0.1-0.8 H EOSINOPHIL # (test code = EO#) 0.22 x10 3/uL 0.0-0.2 H BASOPHIL # (test code = BA#) 0.05 x10 3/uL 0.0-0.2 N NUCLEATED RBC # (test code = 0.00 x10 3/uL 0.0-0.1 N NRBC#) MANUAL DIFF REQUIRED (test code NO = ANDRÉS) - XR CHEST 1 [id number] [facility]:00[facility]00 [facility] 1945 Sex: F FAX: Juan M Crowe MD [phone] [place]: St: ADM FAX: Mathew Quiros [phone] FAX: João Montalvo MD [phone] Name: DARIOELISABETH [facility] : 1945 Age/S: 76/F [address] [place] [address] Unit #: [id number] Loc: G.2261 [place] [address] Phys: Mathew Rivera MD Acct: [id number] Dis Date: Status: ADM IN PHONE #: [phone] Exam Date: 09/01/20221951 FAX #: [phone] Reason: S/PPERM PACEMAKER PLACEMENT EXAMS: CPT CODE: [id number] XR CHEST 1 V 17207 PROCEDURE INFORMATION: Exam:XR Chest Exam date and time: 09/01/2022 7:32 PM Age: 76 years old Clinical indication: Other: S/P perm pacemaker placement TECHNIQUE: Imaging protocol: Radiologic exam of the chest. Views: 1 view. COMPARISON: CR XR CHEST 1V 08/31/2022 5:42 PM FINDINGS: Tubes, catheters and devices: A dual-lead implanted cardiac device is noted with leads terminating in the right atrium and ventricle. No break or dislodgment of leads is identified. Lungs: No acute airspace consolidation. Pleural spaces: No pleural effusion. No pneumothorax. Heart/Mediastinum: Transcatheter aortic valve replacement (TAVR). Bones/joints: Partially imaged postoperative change in the cervical spine. Scoliosis. IMPRESSION: Implanted cardiac device without complication. at 2026 Reported and signed by: Sonido Leonard M.D. 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 [facility] - XR CHEST 1 [id number] 00:00:00 [facility] : 1945 Sex: F FAX: Juan M Crowe MD [phone] [place]: St: ADM FAX: João Montalvo MD [phone] FAX: Rock Quinonez [phone] Name: ELISABETH [place] : 1945 Age/S: 76/F [address] [place] [address] Blvd Unit #: [id number] Loc: [place] [address] Phys: Rock Quinonez Acct: [id number] Dis Date: Status: ADM IN PHONE #: [phone] Exam Date: 08/31/20221807 FAX #: [phone] Reason: S/P TAVR EXAMS: CPT CODE: [id number] XR CHEST 1 V 30440 PROCEDURE INFORMATION: Exam: XR Chest Exam date and time: 08/31/2022 5:42 PM Age: 76 years old Clinical indication: Other: S/P tavr TECHNIQUE: Imaging protocol: Radiologic exam of the chest. Views: 1 view. COMPARISON: DX XR CHEST 2 V 08/27/2022 3:24 PM FINDINGS: Heart is magnified due to portable AP technique. It appears more prominent than the prior study. Prosthetic aortic valve is now present. There is mild vascular congestion without focal consolidation. No pneumothorax. There is S shaped curvature of the thoracolumbar spine. IMPRESSION: Mild vascular congestion. at 1843 Reported and signed by: John Galicia M.D. CC: Juan M Nair MD; João Viramontes MD; Rock Quinonez Technologist: RT Tomy(R) Trnscrd Date/Time/By: 08/31/2022 (1842) : By: [email or web address] Orig Print D/T: S: 08/31/2022 (1843) PAGE 1 Signed ReportB-TYPE NATRIURETIC [id number] 15:43:00 Test Item Value Reference Range Interpretation Comments B-TYPE NATRIURETIC PEPTIDE (test 78.0 PG/ML 0-100 N code = BNP) BASIC METABOLIC [id number] 15:26:00 Test Item Value Reference Range Interpretation Comments SODIUM (test code = 143 mEq/L 134-147 N NA) POTASSIUM (test code 3.8 mEq/L 3.4-5.0 N = K) CHLORIDE (test code 106 mEq/L 100-108 N = CL) CARBON DIOXIDE (test 31 mEq/l 21-33 N code = CO2) ANION GAP (test code 10 0-20 N = GAP) GLUCOSE (test code = 196 mg/dL 70-110 H GLU) BLOOD UREA NITROGEN 20 mg/dL 7-18 H (test code = BUN) GLOMERULAR 67.1 70-80 L The Glomerular FILTRATION RATE Filtration R ate is a (test code = GFR) calculated parameterbased on serum Creatinine, pat ient age and sex. GFR va luesless than 60 mL/min/ 1.73 square meters a re indicative ofCh ronic Kidney Disease. Values less than 15 mL/min/1.73squa re meters indicate Kidney failure. The calculation forGFR is based on the CKD-EPI (2020) calculat ion. This formulais race indifferent and is the recommended for oziel for GFRby the Nat nal Kidney Foundati on for Adults.The GFR will not calculate if th e sex is unknown or if thepatient's ag e is <18 years. CREATININE (test 0.9 mg/dL 0.6-1.3 N code = CREAT) CALCIUM (test code = 9.6 mg/dL 8.0-10.5 N CA) [id number] 15:26:00 Test Item Value Reference Range Interpretation Comments ALBUMIN (test code = ALB) 4.40 g/dL 3.4-5.0 N PROTHROMBIN [id number] 15:24:00 Test Item Value Reference Range Interpretation Comments PROTHROMBIN TIME 11.3 SECONDS 9.3-12.9 N PATIENT (test code = PTP) INTERNATIONAL NORMAL 1.0 0.8-1.2 N TARGET INR BY RATIO (test code = INDICATIO N Indication INR) INR1. Prophylax is of venous thrombos is 2.0 - 3.0 (orthoped ic surgery), Proph ylaxis of venous throm bosis (other than hig h-risk surgery), Treat ment of Deep Vein Thrombosis/Pulm onary Embolism, Preve ntion of systemic emb olism - Tissue heart va lves, Acute Myocardia l Infarction (to prevent systemic emboli sm), Valvular heart disease, Atrial Fibrillation, Bileaflet mecha nical valve in aortic position.2. Mec hanical prosthetic valv es (high risk), 2. 5 - 3.5 Presence of Lup us Anticoagulant o r Antiphospholipi d Antibodies, Pre vention of systemic emb olism - Acute Myocardia l Infarction (to prevent recurrent infar ct). CBC W/AUTO [id number] 15:15:00 Test Item Value Reference Range Interpretation Comments WHITE BLOOD CELL (test code = 7.4 x10 3/uL 4.5-11.0 N WBC) RED BLOOD CELL (test code = 4.61 x10 6/uL 3.54-5.02 N RBC) HEMOGLOBIN (test code = HGB) 14.3 g/dL 11.0-15.0 N HEMATOCRIT (test code = HCT) 43.0 % 33.0-45.0 N MEAN CELL VOLUME (test code = 93.3 fL 81.0-99.0 N MCV) MEAN CELL HGB (test code = MCH) 31.0 pg 27.0-33.0 N MEAN CELL HGB CONCETRATION 33.3 g/dL 33.0-37.0 N (test code = MCHC) RED CELL DISTRIBUTION WIDTH CV 12.9 % 11.5-14.5 N (test code = RDW) RED CELL DISTRIBUTION WIDTH SD 43.9 fL 37.0-54.0 N (test code = RDW-SD) PLATELET COUNT (test code = 199 x10 3/uL 150-400 N PLT) MEAN PLATELET VOLUME (test code 9.9 fL 7.0-9.0 H = MPV) NEUTROPHIL % (test code = NT%) 54.2 % 56.0-77.0 L IMMATURE GRANULOCYTE % (test 0.3 % 0.0-2.0 N code = IG%) LYMPHOCYTE % (test code = LY%) 24.4 % 14.0-32.0 N MONOCYTE % (test code = MO%) 12.4 % 4.8-9.0 H EOSINOPHIL % (test code = EO%) 7.6 % 0.3-3.7 H BASOPHIL % (test code = BA%) 1.1 % 0.0-2.0 N NUCLEATED RBC % (test code = 0.0 % 0-0 N NRBC%) NEUTROPHIL # (test code = NT#) 4.01 x10 3/uL 2.0-7.6 N IMMATURE GRANULOCYTE # (test 0.02 x10 3/uL 0.00-0.03 N code = IG#) LYMPHOCYTE # (test code = LY#) 1.80 x10 3/uL 1.0-3.8 N MONOCYTE # (test code = MO#) 0.92 x10 3/uL 0.1-0.8 H EOSINOPHIL # (test code = EO#) 0.56 x10 3/uL 0.0-0.2 H BASOPHIL # (test code = BA#) 0.08 x10 3/uL 0.0-0.2 N NUCLEATED RBC # (test code = 0.00 x10 3/uL 0.0-0.1 N NRBC#) MANUAL DIFF REQUIRED (test code NO = MDIFF) - XR CHEST 2 [id number] 00:00:00 [facility] : 1945 Sex: F FAX: João Montalvo MD [phone] [place]: BOI St: PRE Name: ELISABETH BISHOP : 1945 Age/S: 76/F [address] [place] [address] Unit #: [id number] Loc: [place] [address] Phys: João Viramontes MD Acct: [id number] Dis Date: Status: PRE IN PHONE #: [phone] Exam Date: 08/27/2022 1526 FAX #: [phone] Reason: PREOP EXAMS: CPT CODE: [id number] XR CHEST 2 V 31180 PROCEDURE INFORMATION: Exam: XR ChestExam date and time: 08/27/2022 3:24 PM Age: 76 years old Clinical indication: Pre-operative exam; Respiratory screening exam; Additional info: Preop TECHNIQUE: Imaging protocol: Radiologic exam of the c hest. Views: 2 views. PA and Lateral COMPARISON: CT HEART W CN ART/GRAFTS 05/18/2022 10:16 AM FINDINGS: Lungs: There are normal lung volumes without consolidation or interstitial opacities. Pleural spaces: Unremarkable. No pleural effusion. No pneumothorax. Heart/Mediastinum: The heart size is normal. The pulmonary vasculature is normal. The mediastinal contour is normal. The trachea is midline. Bones/joints: Degenerative change and levoscoliosis involves the thoracic spine. Previous ACDF. IMPRESSION: No acute cardiopulmonary findings. at 1601 Reported and signed by: Ayad Villar M.D. 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 Acct: [id number] Dis Date: Status: DEP CLI PHONE #: [phone] Exam Date: 05/18/2022 1034 FAX #: [phone] Reason: AORTIC STENOSIS EXAMS: CPT CODE: [id number] CTA ABD PEL W CONT 27974 PROCEDURE INFORMATION: Exam: CTA Heart and Coronary ArteriesWithout and With Contrast Exam date and time: 05/18/2022 10:16 AM Age: 76 years old Clinical indication: Other: Aortic stenosis TECHNIQUE: Imaging protocol: Computed tomographic angiography of the heart,coronary arteries and bypass grafts (when present) without and with contrast including 3D image postp rocessing (including evaluation of cardiac structure and morphology, assessment of cardiac function,and evaluation of venous structures, if performed). 3D rendering (Not supervised by radiologist): MIP and/or 3D reconstructed images were created by the technologist. Radiation optimization: All CT scans at this facility use at least one of these dose optimization techniques: automated exposure control; mA and/or kV adjustment per patient size (includes targeted exams where dose is matched to clinical indication); or iterative reconstruction. Contrast material: ISOVUE 370; Contrast volume: 100 ml; Contrast route: INTRAVENOUS (IV); Other technique: 3D renderinD reconstructed images were created, reviewed and saved. COMPARISON: DX XR CHEST 2 V 03/13/2021 1:57 PM FINDINGS: HEART CTA: Cardiomegaly with multichamber enlargement and moderate concentric left ventricular hypertrophy. No signs of intracardiac thrombus or ventricular aneurysm. Windsock left atrial appendage without thrombus. Ventricul ar septum hypertrophy results in reduced diameter of the left ventricular outflow tract to approximately 20 mm. Calcified, trileaflet aortic valve in keeping with known history. Aortic valve calcium score is 1616. Estimated root/annulus diameters as described, Aortic annulus diameters: 27 x 22 mm [place] ge Annulus diameter: 23 mm Annulus Area: 4.3 cm2 Mean Sinus of Valsalva diameter: 33 mm. 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 No pericardial thickening or effusion. No central or segmental pulmonary emboli. Moderate to severe aortic atherosclerosis without aneurysm or dissection along thevisualized segments. Visualized lungs are clear. Severe cervical spondylosis. IMPRESSION: 1. Calcified, trileaflet aortic valve in keeping with known history. Aortic valve calcium score is 1616. Annulus measurements as described. 2. Cardiomegaly with moderate concentric left ventricular hypertrophy resulting in reduced diameter of the left ventricular outflow tract to approximately 20 mm. No intracardiac thrombus or ventricular aneurysm. 3. Severe multivessel coronary calcification with prior coronary stenting. Correlate with the patient's catheterization results, if available.. 4. Moderate to severe aortic atherosclerosis. PROCEDURE INFORMATION: Exam: CTA Chest Without And With Contrast CTA Abdomen and Pelvis Without And With Contrast Exam date and time: 05/18/2022 10:16 AM Age: 76 years old Clinical indication: Other: Aortic stenosis TECHNIQUE: Imaging protocol: Computed tomographic angiography of the chest without and with contrast. Computed tomographic angiography ofthe abdomen and pelvis without and with contrast. 3D rendering (Not supervised by radiologist): MIP and/or 3D reconstructed images were created by the technologist. Radiation optimization: All CT scansat this facility use at least one of these dose optimization techniques: automated exposure control;mA and/or kV adjustment per patient size (includes targeted exams where dose is matched to clinical indication); or iterative reconstruction. Contrast material: ISOVUE 370; Contrast volume: 100 ml; Contrast route: INTRAVENOUS (IV); COMPARISON: DX XR CHEST 2 V 03/13/2021 1:57 PM FINDINGS: VASCULATURE:Pulmonary arteries: No central pulmonary emboli along the visualized segments. Limited assessment ofthe segmental/subsegmental branches by aortic phase of the contrast PAGE 2 Signed Report (CONTINUED)Name: ELISABETH BISHOP [facility] [place] : 1945 Age/S: 76 / F [address] [place] [address] Blvd Unit #: [id number] Loc: [place] [address] Phys: He Powell VENDING MACHINE [employer]IN COLLECTOR Acct: [id number] Dis Date: Status: DEP CLI PHONE #: [phone] Exam Date: 05/18/2022 1034 FAX #: [phone] Reason: AORTIC STENOSIS EXAMS: CPT CODE: [id number] CTA ABD PEL W CONT 51365 (Continued) bolus. Aorta: Severe aortic atherosclerosis without aneurysm or dissection. Aortoiliac diameters as follows, Mid ascending aorta: 33 mm Mid transverse arch: 25 mm Descending thoracic aorta at the level of the pulmonary arteries: 28 mm Descending thoracic aorta at diaphragmatic hiatus: 22 mm Abdominal aorta just below the renal arteries: 15 mm Distal abdominal aorta at iliac bifurcation: 15 mm Right common iliac artery: 10 mm Left common iliac artery: 10 mm Right common femoral artery: 9 mm Left common femoral artery: 7 mm Celiac trunk and mesenteric arteries: No occlusion or significant stenosis. Mild eccentric celiac artery calcification. Renal arteries: Two right and 2 left main renal arteries with moderate ostial calcification. No flow-limiting stenosis. The right inferior main renal artery arises just above the iliac bifurcation. Right iliac arteries: Severe common iliac/internal iliac atherosclerosis with moderate right common femoral artery calcification. No flow-limiting stenosis or dissection. Left iliac arteries: Severe left commoniliac/internal iliac atherosclerosis with moderate left external iliac and common femoral atherosclerosis. No flow-limiting stenosis or dissection. CHEST: Lungs: Clear lungs with mild dependent subsegmental atelectasis. Pleural spaces: No pleural effusion. No pneumothorax. Heart: As above. ABDOMEN ANDPELVIS: Liver: Fatty liver with few benign non masslike foci of bilobar hepatic arterialization. No cirrhosis or gross solid lesion. Gallbladder and bile ducts: No gallstones or ductal dilatation. Pancreas: No focal pancreatic lesion. Spleen: Unremarkable spleen. Adrenal glands: No adrenal lesions. Kidneys and ureters: Dominant 7.2 cm right simple renal cyst and smaller right renal cysts as described(Bosniak 1). Millimetric left renal cortical hypodensities characterize. No follow-up required as per current guidelines. Stomach and bowel: Large volume colonic fecal material diffusely. PAGE 3 SignedReport (CONTINUED) Name: ELISABETH BISHOP [facility] [place] : 1945 Age/S: 76 / F [address] [place] [address] Blvd Unit #: [id number] Loc: [place] [address] Phys: He Powell VENDING MACHINE [employer]IN COLLECTOR Acct: [id number] Dis Date:Status: DEP CLI PHONE #: [phone] Exam Date: 05/18/2022 1034 FAX #: [phone] Reason: AORTIC STENOSIS EXAMS: CPT CODE: [id number] CTA ABD PEL W CONT 09048 (Continued) Normal caliber small bowel.Appendix: The appendix is not confidently visualized. There is no pericecal inflammation. Intraperitoneal space: No adenopathy or ascites. Urinary bladder: No bladder filling defects or diverticula. Rep roductive: Hysterectomy with benign appearing postmenopausal ovaries. Lymph nodes: No adenopathy. Bones/joints: S-shaped thoracolumbar scoliosis with severe multilevel spondylosis, worst along the scoliotic concavities. No destructive bone lesions. Soft tissues: Unremarkable. IMPRESSION: 1. Severe thor acoabdominal/aortoiliac atherosclerosis without aneurysm or dissection. 2. Patent celiac, mesentericand renal arterial circulation with eccentric calcification as described. No flow-limiting stenosis.3. Two right and 2 left main renal arteries with the most inferior right renal artery arising just above the iliac bifurcation. 4. Additional non vascular findings as described. at 0851 Reported and signed by: John Castro M.D. CC: He Powell VENDING MACHINE COIN COLLECTOR; Moises Kimbrough MD; João Viramontes MD Technologist:Mony Rosales. RT(R)(CT) CTDI: DLP: Trnscb Date/Time: 05/20/2022 (850) [email or web address] Orig Print D/T: S: 05/20/2022 (9645) PAGE 4 Signed Report- CT ANGIO [id number] [facility] 1945 Sex: F Name: ELISABETH BISHOP [facility] : 1945 Age/S: 76 / F [address] [place] [address] Unit #: [id number] Loc: [place] [address] Phys: He Powell NP Acct: [id number] Dis Date: Status: DEP CLI PHONE#: [phone] Exam Date: 05/18/2022 1034 FAX #: [phone] Reason: AOTIC STENOSIS EXAMS: CPT CODE: [id number] CT ANGIO CHEST 12645 PROCEDURE INFORMATION: Exam: CTA Heart and Coronary Arteries Without and With Contrast Exam date and time: 05/18/2022 10:16 AM Age: 76 years old Clinical indication: Other: Aortic stenosis TECHNIQUE: Imaging protocol: Computed tomographic angiography of the heart, coronary arteries and bypass grafts (when present) without and with contrast including 3D image postprocessing (including evaluation of cardiac structure and morphology, assessment of cardiac function, and evaluation of venous structures, if performed). 3D rendering (Not supervised by radiologist): MIP and/or 3D reconstructed images were created by the technologist. Radiation optimization: [facility] use at least one of these dose optimization techniques: automated exposure control; mAand/or kV adjustment per patient size (includes targeted exams where dose is matched to clinical indication); or iterative reconstruction. Contrast material: ISOVUE 370; Contrast volume: 100 ml; Contrast route: INTRAVENOUS (IV); Other technique: 3D renderinD reconstructed images were created, reviewed and saved. COMPARISON: DX XR CHEST 2 V 03/13/2021 1:57 PM FINDINGS: HEART CTA: Cardiomegaly with multichamber enlargement and moderate concentric left ventricular hypertrophy. No signs of intracardiac thrombus or ventricular aneurysm. Windsock left atrial appendage without thrombus. Ventricular septum hypertrophy results in reduced diameter of the left ventricular outflow tract to approximately 20 mm. Calcified, trileaflet aortic valve in keeping with known history. Aortic valve calcium score is 1616. Estimated root/annulus diameters as described, Aortic annulus diameters: 27 x 22 mm Average Annulus diameter: 23 mm Annulus Area: 4.3 cm2 Mean Sinus of Valsalva diameter: 33 mm. Sinotubular junction height: 24 mm Sinotubular junction diameter: 27 mm Right cusp height (to RCA takeoff): 16 mm Left cusp height (to Left main takeoff): 14 mm Other findings: Standard coronary artery origin with severe multivessel coronary calcification and prior coronary stenting to be correlated with the patient'scardiac catheterization results, PAGE 1 Signed Report (CONTINUED) Name: ELISABETH BISHOP [facility] : 1945 Age/S: 76 / F [address] [place] [address] Unit #: [id number] Loc: [facility] [place] [address] Phys: He Powell NP Acct: [id number] Dis Date: Status: DEP CLI PHONE #: [phone] Exam Date: 05/18/2022 1039 FAX #: [phone] Reason: AOTIC STENOSIS EXAMS: CPT CODE: [id number] CT ANGIO CHEST 55440 (Continued) if available. No pericardial thickening or effusion. No central or segmental pulmonary emboli. Moderate to severe aortic atherosclerosis without aneurysm or dissection along the visualized segments. Visualized lungs are clear. Severe cervical spondylosis. IMPRESSION: 1. Calcified, trileaflet aortic valve in keeping with known history. Aortic valve calcium score is 1616. Annulus measure ments as described. 2. Cardiomegaly with moderate concentric left ventricular hypertrophy resulting in reduced diameter of the left ventricular outflow tract to approximately 20 mm. No intracardiac thrombus or ventricular aneurysm. 3. Severe multivessel coronary calcification with prior coronary stenting. Correlate with the patient's catheterization results, if available.. 4. Moderate to severe aortic atherosclerosis. PROCEDURE INFORMATION: Exam: CTA Chest Without And With Contrast CTA Abdomen and Pelvis Without And With Contrast Exam date and time: 05/18/2022 10:16 AM Age: 76 years old Clinical indication: Other: Aortic stenosis TECHNIQUE: Imaging protocol: Computed tomographic angiography of the chest without and with contrast. Computed tomographic angiography of the abdomen and pelvis without and with contrast. 3D rendering (Not supervised by radiologist): MIP and/or 3D reconstructed images were created by the technologist. Radiation optimization: All CT scans at [facility] use at least one of these dose optimization techniques: automated exposure control; mA and/or kV adjustment per patient size (includes targeted exams where dose is matched to clinical indication); or iterative reconstruction. Contrast material: ISOVUE 370; Contrast volume: 100 ml; Contrast route: INTRAVENOUS (IV); COMPARISON: DX XR CHEST 2 V 03/13/2021 1:57 PM FINDINGS: VASCULATURE: Pulmonary arteries: No central pulmonary emboli along the visualized segments. Limited assessment of the segmental/subsegmental branches by aortic phase of the contrast PAGE 2 Signed Report (CONTINUED) Name: [facility] : 1945 Age/S: 76 / F [address] [place], [place] [address] Unit #: [id number]: [place] [address] Phys: He Powell VENDING MACHINE [employer]IN COLLECTOR Acct: [id number] Dis Date: Status: DEP CLI PHONE #: [phone] Exam Date: 05/18/2022 1034 FAX #: [phone] Reason: AOTIC STENOSIS EXAMS: CPT CODE: [id number] ANGIO CHEST 44665 (Continued) bolus. Aorta: Severe aortic atherosclerosis without aneurysmor dissection. Aortoiliac diameters as follows, Mid ascending aorta: 33 mm Mid transverse arch: 25 mm Descending thoracic aorta at the level of the pulmonary arteries: 28 mm Descending thoracic aorta at diaphragmatic hiatus: 22 mm Abdominal aorta just below the renal arteries: 15 mm Distal abdominal aorta at iliac bifurcation: 15 mm Right common iliac artery: 10 mm Left common iliac artery: 10 mm Right common femoral artery: 9 mm Left common femoral artery: 7 mm Celiac trunk and mesenteric arteries: No occlusion or significant stenosis. Mild eccentric celiac artery calcification. Renal arteries: Two right and 2 left main renal arteries with moderate ostial calcification. No flow-limiting stenosis. The right inferior main renal artery arises just above the iliac bifurcation. Right iliac arteries:Severe common iliac/internal iliac atherosclerosis with moderate right common femoral artery calcification. No flow-limiting stenosis or dissection. Left iliac arteries: Severe left common iliac/internal iliac atherosclerosis with moderate left external iliac and common femoral atherosclerosis. No flow-limiting stenosis or dissection. CHEST: Lungs: Clear lungs with mild dependent subsegmental atelect asis. Pleural spaces: No pleural effusion. No pneumothorax. Heart: As above. ABDOMEN AND PELVIS: Liver: Fatty liver with few benign non masslike foci of bilobar hepatic arterialization. No cirrhosis orgross solid lesion. Gallbladder and bile ducts: No gallstones or ductal dilatation. Pancreas: No focal pancreatic lesion. Spleen: Unremarkable spleen. Adrenal glands: No adrenal lesions. Kidneys and ureters: Dominant 7.2 cm right simple renal cyst and smaller right renal cysts as described (Bosniak 1). Millimetric left renal cortical hypodensities characterize. No follow-up required as per current mike delines. Stomach and bowel: Large volume colonic fecal material diffusely. PAGE 3 Signed Report (CONTINUED) Name: ELISABETH BISHOP [facility] : 1945 Age/S: 76 / F [address] [place] [address] Blvd Unit #: [id number] Loc: [place] [address] Phys: BoraHe haile VENDING MACHINE COIN COLLECTOR Acct: [id number] Dis Date: Status: DEP CLI PHONE #: [phone] Exam Date: 05/18/2022 1034 FAX #: [phone] Reason: AOTIC STENOSIS EXAMS: CPT CODE: [id number] CT ANGIO CHEST 71001 (Continued) Normal caliber small bowel. Appendix: The appendix is not confidently visualized. There is no pericecal inflammation. Intraperitoneal space: No adenopathy or ascites. Urinary bladder: No bladder filling defects or diverticula. Reproductive: Hysterectomy with benign appearing postmenopausal ovaries. Lymph nodes: No adenopathy. Bones/joints: S-shaped thoracolumbar scoliosis with severe multilevel spondylosis, worst along the scoliotic concavities. No destructive bone lesions. Soft tissues: Unremarkable. IMPRESSION: 1. Severe thoracoabdominal/aortoiliac atherosclerosis without aneurysm or dissection. 2. Patent celiac, mesenteric and renal arterial circulation with eccentric calcification as described. No flow-limiting stenosis. 3. Two right and 2 left main renal arteries with the most inferior right renal artery arising just above the iliacbifurcation. 4. Additional non vascular findings as described. at 0851 Reported and signed by: John Castro M.D.CC: He Powell NP; Moises Kimbrough MD; João Viramontes MD Technologist:Mony Rosales. RT(R)(CT) CTDI: DLP: Trnscb Date/Time: 05/20/2022 (850) [email or web address] Orig Print D/T: S: 05/20/2022 (52) PAGE 4 Signed Report- CTA HEART W CN ART/[id number] 00:00:00 [facility] 1945 Sex: F Name: ELISABETH BISHOP [facility] [place] : 1945 Age/S: 76 / F [address] [place] [address] Unit #: [id number] Loc: [facility] [place] [address] Phys: He Powell NP Acct: [id number] Dis Date: Status: DEP CLI PHONE #: [phone] Exam Date: 05/18/2022 1034 FAX #: [phone] Reason: EXAMS: CPT CODE: [id number] CTA HEART W CN ART/GRAFTS 65007 PROCEDURE INFORMATION: Exam: CTA Heart and Coronary Arteries Without and With Contrast Exam date and time: 05/18/2022 10:16 AM Age: 76 years old Clinical indication: Other: Aortic stenosis TECHNIQUE: Imaging protocol: Computed tomographic angiography of the heart, coronary arteries and bypass grafts (when present) without and with contrast including 3D image postprocessing (including evaluation of cardiac structure and morphology, assessment of cardiac function, and evaluation of venous structures, if performed). 3D rendering (Not supervised by radiologist): MIP and/or 3D reconstructed images were created by the technologist. Radiation optimization: All CT scans at this facility use at least one of these dose optimization techniques: automated exposure control; mA and/or kV adjustment per patient size (includes targeted exams where dose is matched to clinical indication); or iterative reconstruction. Contrast material: ISOVUE 370; Contrast volume: 100 ml; Contrast route: INTRAVENOUS (IV); Other technique: 3D renderinD reconstructed images were created, reviewed and saved. COMPARISON: DX XR CHEST 2 V 03/13/2021 1:57 PM FINDINGS: HEART CTA: Cardiomegaly with multichamber enlargement and moderate concentric left ventricular hypertrophy. No signs of intracardiac thrombus or ventricular aneurysm. Windsock left atrial appendage without thrombus. Ventricular septum hypertrophy results in reduced diameter of the left ventricular outflow tract to approximately 20 mm.Calcified, trileaflet aortic valve in keeping with known history. Aortic valve calcium score is 1616. Estimated root/annulus diameters as described, Aortic annulus diameters: 27 x 22 mm Average Annulusdiameter: 23 mm Annulus Area: 4.3 cm2 Mean Sinus of Valsalva diameter: 33 mm. Sinotubular junction height: 24 mm Sinotubular junction diameter: 27 mm Right cusp height (to RCA takeoff): 16 mm Left cuspheight (to Left main takeoff): 14 mm Other findings: Standard coronary artery origin with severe multivessel coronary calcification and prior coronary stenting to be correlated with the patient's cardiac catheterization results, PAGE 1 Signed Report (CONTINUED) Name: ELISABETH BISHOP [facility] [place] : 1945 Age/S: 76 / F [address] [place] [address] Blvd Unit #: [id number] Loc: [place] [address] Phys: He Powell VENDING MACHINE COIN COLLECTOR Acct: [id number] Dis Date: Status: DEP CLI PHONE #: [phone] Exam Date: FAX #: [phone] Reason: EXAMS: CPT CODE: [id number] CTA HEART W CN ART/GRAFTS 20606 (Continued) if available. No pericardial thickening or effusion. No central or segmental pulmonary emboli. Mo derate to severe aortic atherosclerosis without aneurysm or dissection along the visualized segments. Visualized lungs are clear. Severe cervical spondylosis. IMPRESSION: 1. Calcified, trileaflet aortic valve in keeping with known history. Aortic valve calcium score is 1616. Annulus measurements as described. 2. Cardiomegaly with moderate concentric left ventricular hypertrophy resulting in reduced diameter of the left ventricular outflow tract to approximately 20 mm. No intracardiac thrombus or ventricular aneurysm. 3. Severe multivessel coronary calcification with prior coronary stenting. Correlate with the patient's catheterization results, if available.. 4. Moderate to severe aortic atheroscle rosis. PROCEDURE INFORMATION: Exam: CTA Chest Without And With Contrast CTA Abdomen and Pelvis Without And With Contrast Exam date and time: 05/18/2022 10:16 AM Age: 76 years old Clinical indication: Other: Aortic stenosis TECHNIQUE: Imaging protocol: Computed tomographic angiography of the chest without and with contrast. Computed tomographic angiography of the abdomen and pelvis without and with contrast. 3D rendering (Not supervised by radiologist): MIP and/or 3D reconstructed images were created by the technologist. Radiation optimization: All CT scans at this facilityuse at least one of these dose optimization techniques: automated exposure control; mA and/or kV adjustment per patient size (includes targeted exams where dose is matched to clinical indication); or iterative reconstruction. Contrast material: ISOVUE 370; Contrast volume: 100 ml; Contrast route: INTRAVENOUS (IV); COMPARISON: DX XR CHEST 2 V 03/13/2021 1:57 PM FINDINGS: VASCULATURE: Pulmonary arteries: No central pulmonary emboli along the visualized segments. Limited assessment of the segmental/subsegmental branches by aortic phase of the contrast PAGE 2 Signed Report (CONTINUED) Name: ELISABETH BISHOP : 1945 Age/S: 76 / F [address] [place] [address] Blvd Unit #: [id number] Loc: [place] [address] Phys: He Powell VENDING MACHINE COIN COLLECTOR Acct: [id number] Dis Date: Status: DEP CLI PHONE #: [phone] Exam Date: 05/18/2022 1034 FAX #: [phone] Reason: EXAMS: CPT CODE: [id number] CTA HEART W CN ART/GRAFTS 81108 (Continued) bolus. Aorta: Severe aortic atherosclerosis without aneurysm or dissection. Aortoiliac diameters as follows, Mid ascending aorta: 33 mm Mid transverse arch: 25 mm Descending thoracic aorta at the level of the pulmonary arteries: 28 mm Descending thoracic aorta at diaphragmatic hiatus: 22 mm Abdominal aorta just below the renal arteries: 15 mm Distal abdominal aorta at iliac bifurcation: 15 mm Right common iliac artery: 10 mm Left common iliac artery: 10 mm Right common femoral artery: 9 mm Left common femoral artery: 7 mm Celiac trunk and mesenteric arteries: No occlusion or significant stenosis. Mild eccentric celiac artery calcification. Renal arteries: Two right and 2 left main renal arteries with moderate ostial calcification. No flow-limiting stenosis. The right inferior main renal artery arises just above the iliac bifurcation. Right iliac arteries: Severe common iliac/internal iliac atherosclerosis with moderate right common femoral artery calcification. No flow-limiting stenosis or dissection. Left iliac arteries: Severe left common iliac/internal iliac atherosclerosis with moderate left external iliac and common femoral atherosclerosis. No flow-limiting stenosis or dissection. CHEST: Lungs: Clear lungs with mild dependent subsegmental atelectasis. Pleural spaces: No pleural effusion. No pneumothorax. Heart: As above. ABDOMEN AND PELVIS: Liver: Fatty liver with few benign non masslike foci of bilobar hepatic arterialization. No cirrhosis or gross solidlesion. Gallbladder and bile ducts: No gallstones or ductal dilatation. Pancreas: No focal pancreatic lesion. Spleen: Unremarkable spleen. Adrenal glands: No adrenal lesions. Kidneys and ureters: Dominant 7.2 cm right simple renal cyst and smaller right renal cysts as described (Bosniak 1). Millimetric left renal cortical hypodensities characterize. No follow-up required as per current guidelines. Stomach and bowel: Large volume colonic fecal material diffusely. PAGE 3 Signed Report (CONTINUED) Name: ELISABETH BISHOP : 1945 Age/S: 76 / F [address] [place], [place] [address]vd Unit #: [id number] Loc: [place] [address] Phys: He Powell NP Acct: [id number] Dis Date: Status: DEP CLI PHONE #: [phone] Exam Date: 05/18/2022 1034 FAX #: [phone] Reason: EXAMS: CPT CODE: [id number] CTAHEART W CN ART/GRAFTS 33940 (Continued) Normal caliber small bowel. Appendix: The appendix is not confidently visualized. There is no pericecal inflammation. Intraperitoneal space: No adenopathy or ascites. Urinary bladder: No bladder filling defects or diverticula. Reproductive: Hysterectomy with benign appearing postmenopausal ovaries. Lymph nodes: No adenopathy. Bones/joints: S-shaped thoracolumbar scoliosis with severe multilevel spondylosis, worst along the scoliotic concavities. No destructive bone lesions. Soft tissues: Unremarkable. IMPRESSION: 1. Severe thoracoabdominal/aortoiliac atherosclerosis without aneurysm or dissection. 2. Patent celiac, mesenteric and renal arterial circulation with eccentric calcification as described. No flow-limiting stenosis. 3. Two right and 2 left main renal arteries with the most inferior right renal artery arising just above the iliac bifurcation. 4. Additional non vascular findings as described. at 0851 Reported and signed by: John Castro M.D. CC: He Powell NP; Moises Kimbrough MD; João Viramontes MD Technologist:Mony Rosales. RT(R)(CT) CTDI: DLP: Trnscb Date/Time: 05/20/2022 (850) [email or web address] Orig Print D/T: S: 05/20/2022 (0852) PAGE 4 Signed [id number] 13:46:00 Test Item Value Reference Range Interpretation Comments ACT-ISTAT (test code 249 SEC 74-137 H Perform ed by certified = ACTI) 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 [facility] [id number] 13:14:00 Test Item Value Reference Range Interpretation Comments ACT-ISTAT (test code 273 SEC 74-137 H Perform ed by certified = ACTI) 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 [facility] [id number] 12:55:00 Test Item Value Reference Range Interpretation Comments ACT-ISTAT (test code 315 SEC 74-137 H Perform ed by certified = ACTI) 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 [facility] [id number] 12:26:00 Test Item Value Reference Range Interpretation Comments ACT-ISTAT (test code 291 SEC 74-137 H Perform ed by certified = ACTI) 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 [facility] BASIC METABOLIC [id number] 13:50:00 Test Item Value Reference Range Interpretation Comments SODIUM (test code = NA) 142 mEq/L 134-147 N POTASSIUM (test code = 3.9 mEq/L 3.4-5.0 N K) CHLORIDE (test code = 105 mEq/L 100-108 N CL) CARBON DIOXIDE (test 31 mEq/l 21-33 N code = CO2) ANION GAP (test code = 10 0-20 N GAP) GLUCOSE (test code = 77 mg/dL 70-110 N GLU) BLOOD UREA NITROGEN 25 mg/dL 7-18 H (test code = BUN) GLOMERULAR FILTRATION 70.3 70-80 N Units of measure = RATE (test code = GFR) ml/mi n/1.73 m2 CREATININE (test code = 0.8 mg/dL 0.6-1.3 N CREAT) CALCIUM (test code = 10.0 mg/dL 8.0-10.5 N CA) PROTHROMBIN [id number] 13:31:00 Test Item Value Reference Range Interpretation Comments PROTHROMBIN TIME 11.3 SECONDS 9.3-12.9 N PATIENT (test code = PTP) INTERNATIONAL NORMAL 1.0 0.8-1.2 N TARGET INR BY RATIO (test code = INDICATIO N Indication INR) INR1. Prophylax is of venous thrombos is 2.0 - 3.0 (orthoped ic surgery), Proph ylaxis of venous throm bosis (other than hig h-risk surgery), Treat ment of Deep Vein Thrombosis/Pulm onary Embolism, Preve ntion of systemic emb olism - Tissue heart va lves, Acute Myocardia l Infarction (to prevent systemic emboli sm), Valvular heart disease, Atrial Fibrillation, Bileaflet mecha nical valve in aortic position.2. Mec hanical prosthetic valv es (high risk), 2. 5 - 3.5 Presence of Lup us Anticoagulant o r Antiphospholipi d Antibodies, Pre vention of systemic em bolism - Acute Myocard ial Infarction (to prevent recurrent infar ct). CBC W/AUTO [id number] 13:04:00 Test Item Value Reference Range Interpretation Comments WHITE BLOOD CELL (test code = 9.0 x10 3/uL 4.5-11.0 N WBC) RED BLOOD CELL (test code = 4.65 x10 6/uL 3.54-5.02 N RBC) HEMOGLOBIN (test code = HGB) 14.8 g/dL 11.0-15.0 N HEMATOCRIT (test code = HCT) 44.4 % 33.0-45.0 N MEAN CELL VOLUME (test code = 95.5 fL 81.0-99.0 N MCV) MEAN CELL HGB (test code = MCH) 31.8 pg 27.0-33.0 N MEAN CELL HGB CONCETRATION 33.3 g/dL 33.0-37.0 N (test code = MCHC) RED CELL DISTRIBUTION WIDTH CV 12.6 % 11.5-14.5 N (test code = RDW) RED CELL DISTRIBUTION WIDTH SD 44.0 fL 37.0-54.0 N (test code = RDW-SD) PLATELET COUNT (test code = 226 x10 3/uL 150-400 N PLT) MEAN PLATELET VOLUME (test code 9.9 fL 7.0-9.0 H = MPV) NEUTROPHIL % (test code = NT%) 54.8 % 56.0-77.0 L IMMATURE GRANULOCYTE % (test 0.4 % 0.0-2.0 N code = IG%) LYMPHOCYTE % (test code = LY%) 22.4 % 14.0-32.0 N MONOCYTE % (test code = MO%) 14.7 % 4.8-9.0 H EOSINOPHIL % (test code = EO%) 6.5 % 0.3-3.7 H BASOPHIL % (test code = BA%) 1.2 % 0.0-2.0 N NUCLEATED RBC % (test code = 0.0 % 0-0 N NRBC%) NEUTROPHIL # (test code = NT#) 4.94 x10 3/uL 2.0-7.6 N IMMATURE GRANULOCYTE # (test 0.04 x10 3/uL 0.00-0.03 H code = IG#) LYMPHOCYTE # (test code = LY#) 2.02 x10 3/uL 1.0-3.8 N MONOCYTE # (test code = MO#) 1.33 x10 3/uL 0.1-0.8 H EOSINOPHIL # (test code = EO#) 0.59 x10 3/uL 0.0-0.2 H BASOPHIL # (test code = BA#) 0.11 x10 3/uL 0.0-0.2 N NUCLEATED RBC # (test code = 0.00 x10 3/uL 0.0-0.1 N NRBC#) MANUAL DIFF REQUIRED (test code NO = MDIFF) - USG NDL PLACEMENT (Bxg/Asp)2021-02-13 11:05:00 [facility] EL[facility]ABETH [facility]ISHOP : 1945 Sex: F PatientName: ELISABETH BISHOP Unit No: [id number] EXAMS: CPT CODE: [id number] USG NDL PLACEMENT (Bxg/Asp) 83559 INDICATION: Right knee pain. PROCEDURE: Ultrasound guided cryoanalgesia (Iovera) of the right anterior femoral cutaneous nerve, medial femoral cutaneous nerve, and the superior and inferior branches of the infrapatellar branch of the saphenous nerve. PAWN SHOP KEEPER: Dr. Holden. MEDICATIONS: 1 % Lidocaine local anesthesia CONTRAST: None. COMPLICATION: None immediately evident. DESCRIPTION: After the procedure, including indication and potential complications had been discussed with the patient and questions answered, written informed consent was obtained. The patient was then taken to the ultrasound suite and placed on the table in supine position with their treatment leg fully extended. The skin of the right knee was evaluated sonographically. The skin over the anterior femoral cutaneous nerve, medial femoral cutaneous nerve, and the superior and inferior branches of the infrapatellar branch of the saphenous nerve was marked. The skin was then prepped and draped sterilely. A time out was performed. After achieving 1% Lidocaine local anesthesia, the 55mm Smart Tip Iovera cryoanalgesia probe was inserted into the skin at the sites where the nerves had been identified by ultrasound, and the treatment was initiated. The duration of each treatment cycle was 1 minute and 10 seconds. The patent's skinwas cleaned and the wound was covered with a band-aid. The patient was instructed to stand and mobilize the knee joint. No immediate complication were observed. The patient tolerated the procedure welland was subsequently discharged in stable condition with instructions for follow up. Preprocedural p ain level: 10/ 10 Postprocedural pain level: 3/ 10 IMPRESSION: Cryoanalgesia of the right anterior femoral cutaneous nerve, medial femoral cutaneous nerve, and the superior and inferior branches of theinfrapatellar branch of the saphenous nerve as above. at 1105 Reported and signed by: Matthew Holden MD [facility] NAME: ELISABETH BISHOP [address] [facility] PHYS: GOMMU.01 - Adolfo Benton : 1945 AGE: 75SEX: F [place], [place] [address] LOC: Y.RAD PHONE #: [phone] EXAM DATE: 02/12/2021 STATUS: DEP CLI FAX #: [phone] RAD #: D/C DT PAGE 1 Signed Report (CONTINUED) Patient Name: ELISABETH BISHOP Unit No: [id number] EXAMS: CPT CODE: [id number] USG NDL PLACEMENT (Bxg/Asp) 14261 (Continued) CC: Adolfo Benton MD Technologist: DANIEL DORANTES RDMS, RVT Transcribed D/ (7934) [facility] NAME: ELISABETH BISHOP [address] [place] [address] PHYS: Adolfo Troncoso : 1945 AGE: 75 SEX: F [place], [place] [address] LOC: Y.RAD PHONE #: [phone] EXAM DATE: 02/12/2021 STATUS: DEP CLI FAX #: [phone] RAD #: D/C DT PAGE 2 Signed Report Patient Name: ELISABETH BISHOP Unit No: [id number] EXAMS: CPT CODE: [id number] US NDL PLACEMENT (Bxg/Asp) 60158 (Continued) Orig Print D/T: S: 02/13/2021 (2414) [facility] [address] [place] [address] PHYS: TIERRA Adolfo Benton : 1945 AGE: 75 SEX: F [place], [place] [address] LOC: Y.RAD PHONE #: [phone] EXAM DATE: 02/12/2021 STATUS: DEP CLI FAX #: [phone] RAD #: D/C DT PAGE 3 Signed Report- MRI LW JNT W/O CONT [id number] 14:59:00 [facility]: ELISABETH BISHOP : 1945 Sex: F PatientName: ELISABETH BISHOP Unit No: [id number] EXAMS: CPT CODE: [id number] [place] LW JNT W/[place] [address] TECHNIQUE: Multiplanar, multisequence MRI of the right knee without contrast. COMPARISON: None available. FINDINGS: Menisci: A complex tear of the medial meniscus is demonstrated with a horizontal component extending from the posterior horn to the anterior horn. The anterior horn/body junction is slightly extruded (coronal image 15). No definite lateral meniscal tear is identified. Ligament and tendons: The ACL and PCL are intact. The collateral ligaments are maintained. Extensor mechanism is unremarkable. Mild intramuscular edema of the anterior tibialis as well as the medial head of the gastrocnemius is noted. Cartilage/ bone: Moderate patellar cartilage degeneration reaches high-grade within the superior patellar apex. There is also moderate to severe medial compartment cartilage degeneration with broad high-grade cartilage loss of the medial tibial plateau. Prominent subchondral edema within the anterior medial tibial plateau is likely stress change. A chronic subchondral cyst of the lateraltibial plateau is noted underlying a high-grade cartilage defect which measures 6 mm transversely. No acute fracture. Other: A small joint effusion is present as well as a small popliteal cyst. IMPRESSION: 1. Complex tear of the medial meniscus with a large horizontal component. 2. 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 3. Additional chronic findings as above. at 1459 Reported and signed by: Sonido Heck M.D. CC: Marco Antonio Benton MD Technologist: Shane Martinez(R) Transcribed D/ (1197) tJET.[facility] NAME: ELISABETH BISHOP [address] PHYS: GOMMU.01 - Adolfo Benton : 1945 AGE: 75 SEX: F [place], [place] [address] LOC: Y.RAD PHONE #: [phone] EXAM DATE: 02/12/2021 STATUS: REG CLI FAX #: [phone] RAD #: D/C DT PAGE 1 Signed Report Patient Name: ELISABETH BISHOP Unit No: [id number] EXAMS: CPT CODE: [id number] MRI LW JNT W/[place] [address] (Continued) Orig Print D/T: S: 02/12/2021 (1503) [facility] NAME: ELISABETH BISHOP [address] PHYS: ANTONIOULizy - Adolfo Benton M : 1945 AGE: 75 SEX: F [place], [place] [address] LOC: Y.RAD PHONE #: [phone] EXAM DATE: 02/12/2021 STATUS: REG CLI FAX #: [phone] RAD #: D/C DT PAGE 2 Signed ReportUS ABDOMEN [id number] 19:57:41 1. ?Right renal cysts.2. ?Probable small gallbladder sludge.3. ?3. Normal size liver with mild hepatic steatosis. Preliminary Report Dictated by Resident: Yoni Yip ?MD Remberto., have reviewed this study and agree with theabove report.EXAM: US ABDOMEN COMPLETE HISTORY: 74 years-old Female with Abnormal results of liver functionstudies External orders. TECHNIQUE: Complete abdominal ultrasound was performed. Main portal veinwas evaluated with color Doppler imaging. Representat esteban images wereobtained for the record. COMPARISON: None FINDINGS: LIVER: Length: 15 cm.Parenchyma: Mild diffuse increased hepatic echogenicity. No focal lesion isdetected.Portal vein: Hepatopetal flowpresent in the main portal vein. It measures1 cm. GALLBLADDER:No cholelithiasis. Possible small sludge.Normal gallbladder wall thickness, 2 mm.Negative Rodrigues's sign.. BILE DUCTS:No intra- or extrahepatic biliary dilatation..Common Duct diameter: 5 mm. PANCREAS: Visualized areas of the pancreatic bodyare unremarkable. SPLEEN: The spleen is normal in size. The spleen measures 10.4 cm. No focal lesionsin the spleen. KIDNEYS:RIGHT:Length: Normal, 12.6 cm.Parenchyma: Normal renal cortical echogenicity and thickness. Anechoiccystic lesion at the midpole of the right kidney measuring up to 8 cm.Another similar smaller one measuring up to 2.1 cm. No intralesional softtissue nodule, septation or blood flow.Collecting System: No hydronephrosis.Other: None. LEFT:Length: Normal, 11 cm.Parenchyma:Normal camille l cortical echogenicity and thickness. No focal solidor cystic renal lesions are detected.CollectingSystem: No hydronephrosis.Other: None. AORTA:Abdominal aorta is normal in caliber where visualized. It measures 1.7 cm. IVC:IVC is normal in appearance where visualized. [facility], Radiant Results Inft User- 06/18/2020 1:58 PM CSTEXAM: US ABDOMEN COMPLETEHISTORY: 74 years-old Female with Abnormal results o f liver functionstudies External orders.TECHNIQUE: Complete abdominal ultrasound was performed. Mainportal veinwas evaluated with color Doppler imaging. Yarder Operator images wereobtained for the record.COMPARISON: NoneFINDINGS: LIVER: Length: 15 cm.Parenchyma: Mild diffuse increased hepatic echogenicity. No focal lesion isdetected.Portal vein: Hepatopetal flow present in the main portal vein. It measures1 cm.GALLBLADDER:No cholelithiasis. Possible small sludge.Normal gallbladder wall thickness, 2 mm.Negative Rodrigues's sign..BILE DUCTS:No intra- or extrahepatic biliary dilatation..Common Duct diameter: 5 mm.PANCREAS: Visualized areas of the pancreatic body are unremarkable.SPLEEN: The spleen is normal in size. The spleen measures 10.4 cm. No focal lesionsin the spleen.KIDNEYS:RIGHT:Length: Normal, 12.6 cm.Parenchyma: Normal renal cortical echogenicity and thickness. Anechoiccystic lesion at the midpole of the right kidney measuring up to 8 cm.Another similar smaller one measuring up to 2.1 cm. No intralesional softtissue nodule, septation or blood flow.Collecting System: No hydronephrosis.Other: None.LEFT:Length: Normal, 11 cm.Parenchyma:Normal renal cortical echogenicity and thickness. No focal solidor cystic renal lesions are detected.Collecting System: No hydronephrosis.Other: None.AORTA:Abdominal aorta is normal in caliber where visualized. It measures 1.7 cm.IVC:IVC is normal in appearance where visualized. IMPRESSION1. Right renal cysts.2. Probable small gallbladder sludge.3. 3. Normal size liver with mild hepatic steatosis.Preliminary Report Dictated by Resident: Yoni Boston MD., have reviewed this study and agree with theabove report.[facility]ville[facility] ([facility] AND SPINE) 2020-06-18 18:09:36HISTORY: TECHNIQUE: Bone density estimation is done using DEXA scan, over the righthip and lumbar spines. FINDINGS: Details of the results are enclosed for your review. The summaryis as follows. RIGHT HIP:BMD value is 0.932 gm/sq cm, with T-score of - 0.6. Estimated BMD in theneck is 0.787 g/sq cm with T score of -1.8. LUMBAR SPINES:Average BMD value from L1 through L4 is 1.031 gm/sq cm, with T-score- 1.3.Mild mid lumbar dextroscoliosis, degenerative disc disease at L2-L3 andL4-L5 levels with endplate sclerosis contributing to BMD estimation. CONCLUSION: Osteopenia. ASSESSMENT: WHO-definitions: T-score normal: +/- 1 SD around the meanosteopenia: >1 to 2.4 SD below the meanosteoporosis: >2.5SD below the meanFracture risk doubles for each 1.5 SD below the mean. [facility], Radiant Results Inft User - 06/18/2020 12:10 PM CSTHISTORY: TECHNIQUE: Bone density estimation is done using DEXA scan, overthe righthip and lumbar spines.FINDINGS: Details of the results are enclosed for your review. The summaryis as follows.RIGHT HIP:BMD value is 0.932 gm/sq cm, with T-score of - 0.6. Estimated BMD in theneck is 0.787 g/sq cm with T score of -1.8.LUMBAR SPINES:Average BMD value from L1 through L4 is 1.031 gm/sq cm, with T-score - 1.3.Mild mid lumbar dextroscoliosis, degenerative disc disease at L2- L3 andL4-L5 levels with endplate sclerosis contributing to BMD estimation.CONCLUSION: Osteopenia.ASSESSMENT: WHO-definitions: T-scorenormal: +/- 1 SD around the meanosteopenia: >1 to 2.4 SD below the meanosteoporosis: >2.5 SD below the meanFracture risk doubles for each 1.5 SD below the mean. [facility] GreenvilleUT Pathology [id number] 00:00:00 Test Item Value Reference Range Interpretation Comments Case (test code = Click ImageLink button N Case) for report. [place] [facility] [id number] 00:00:00 Test Item Value Reference Range Interpretation Comments Case (test code = Click ImageLink button N Case) for report. [place] [facility][LH] TSH+Free [id number] 12:14:01 Test Item Value Reference Range Interpretation Comments TSH (test code = 85434-9) 1.330 {uIU/ml} 0.360-3.740 T4 Free (test code = 3024-7) 1.16 ng/dl 0.76-1.46 [place] [facility] Date/Time Note Provider Source 2022-09-08 09:18:00-00:00 [facility] DT Operative Note REPORT#:[id number] REPORT STATUS: Signed DATE:09/08/22 TIME: 917 PATIENT: ELISABETH BISHOP UNIT #: [id number] ROOM/BED: [place] [address] : [birth year] AGE: 76 SEX: F ATTEND: Rajinder Nair MD ADM AUTHOR: Juan M Nair MD * ALL edits or amendments must be made on the [employer]/computer document * Operative Report Operative Note Note: Pre-procedure diagnosis: Severe symptomatic aortic stenosis Post-procedure diagnosis: Severe symptomatic aortic stenosis Procedures performed: 1. Transcatheter aortic valv e replacement using Jama's Geoffrey S3 Ultra 26 mm valve pericardial valve via transfemoral approac h with MAC. 2. Ascending aortogram 3. Distal aortogram 4. Transvenous temporary pacemaker insertion 5. Manta closure device into the right common fe moral artery 6. 6-Sri Lankan Angioseal closure of the left femora l artery [employer]: MD João Tam MD CT surgeon: Breana Kimbrough MD Anesthesia: monitored anesthesia care. Indications: Severe symptomatic aortic stenosis. Technique/Procedure: After informed consent was obtained patient was brought into the Sewing Pattern Layout Technician patient was prepped and draped in sterile fashio n. Left common femoral artery was accessed ultrasound guided and using micropu ncture technique under fluoroscopy guidance and a 5 Sri Lankan sheath was i nserted. The left common femoral vein was accessed using micropuncture te chnique and then an 8 [place]an long sheath was inserted. The right common femor al artery was visualized by ultrasound and accessed usin g micropuncture technique under fluoroscopy guidance a micropuncture technique then a 6 Frenc h sheath was inserted and then we used the Manta depth expeditionary force combat skills to decide the de pth of the artery. Then we placed a 14 [place]an Jama E sheath. Then we went with 5 Ricardo nch marked pigtail from the left common femoral artery we placed it in the n oncoronary cusp. Then we went up with temporary pacer and we placed it in the right ventricle against the septum. Then we went through the E sheath with exchange length J-wire over AL-1 catheter and I crossed the aortic valve with str aight tip wire and then I exchanged the AL-1 catheter into a pigtail over a J-wire. Then I performed simultaneous pressure and me asured gradient between the LV and aortic root mean gradient. Then I went with extra-stiff Amplatz w kareen with a curved tip that manually was done and placed it in the left ventricle apex. Then I went up with the Ajma 26 mm valve and we placed it across the aortic valve. I performed aortogram and the ascending aorta and showed goo d position of the TAVR valve. Then with rapid pacing at 200 bpm deployed the T AVR valve 26 mm at nominal pressure. Then the valve delivery system was rem kristine. And we performed ascending aortogram utilizing the marker pigtail and showed no perivalvular leak. An echocardiogram was done at the bedside showed no effusion , minimal gradient and no perivalvular leak. Then I went up with a pigtail over a J-wire across the TAVR valve and placed it in the left ventricle and post TAVR deployment mean gradient was minimal. When I rem kristine the pigtail out of the body and removed the E sheat h manual pressure applied and then we deployed Manta closure device in the right common femoral artery with good hemostasis. Then we pulled back the marked pigta il into the distal abdominal aorta and we performed angiogram and showed good hemostasis achievement in the right common femoral artery. Then the temporary pacer was removed the marked pigtail was removed. Patient tolerated procedure well there was no co mplication Operative findings: Severe aortic stenosis. Estimated blood loss in ml's: Minimal Specimens removed/altered: none Implant(s): Jama 26 mm Valve Disposition: PACU Electronically Signed by Juan M Nair MD on at 0924 [facility] #:[id number] END OF REPORT 2022-09-07 11:15:00-00:00 [id number] [place] [address] PATIENT NAME: ELISABETH BISHOP ADMIT DATE: ACCOUNT NO: [id number] ROOM NO: [facility] AGE: 77 REPORT TYPE: OPERATIVE REPORT SEX: F ADMITTING PHYSICIAN:João Viramontes MD ATTENDING PHYSICIAN:Juan M Nair MD OPERATION DATE: PREOPERATIVE DIAGNOSIS: POSTOPERATIVE DIAGNOSIS: PROCEDURE PERFORMED: Transcatheter aortic valve replacement using a 26 mm Jama Geoffrey S3 Ultra valve via left common fe moral artery access. INDICATION: Severe symptomatic aortic valve sten osis with congestive heart failure symptoms. ACCESSES: 1. Right femoral artery, 6-[place] closed with My nx device. 2. Left common femoral artery, 14-[place] closed with MANTA closure device. 3. Right common femoral vein, 8-[place]an closed wi th manual pressure. ESTIMATED BLOOD LOSS: Less than 100 mL PRIMARY OPERATORS: João Viramontes MD/Juan M tamayo MD PRIMARY SURGEON: Moises Kimbrough MD BOOKKEEPING TEACHER: ANESTHESIA: COMPLICATIONS: None. DESCRIPTION OF PROCEDURE: After risks, benefits and alternatives were explained, the patient agreed to proceed and sig jose informed consent. The patient was brought into the hybrid operating room, prepped and draped in usual sterile fashion. Monitored anesthesia care was a pplied and then after proper timeout, I accessed the right femoral vein, righ t femoral artery, and left femoral artery using ultraso und guidance, micropuncture kit, and fluoroscopy. I placed 6-[place]an [place] she ath in each location, then upgraded the femoral vein to 8-[place]ankan long sheath and the left common femo ral artery to 14-[place]ankan TAVR Jama sheath, gave systemi c heparin to assure ACT level above 250, then I took a balloon-tipped pacemaker wire through the venous sheath into the RV into the intraventricular septum. Pacemaker was tested an d secured in position, took a pigtail catheter through the right common femora l artery into the aortic root and identified the deploymen t angle. Then, we took the AL1 catheter over J-wire into the aortic root. With a straight wire, the valve was crossed and then PATIENT NAME: ELISABETH BISHOP 2137 advanced the catheter into t he LV, measured the LVEDP and simultaneous pressure and then I took an Amplatz e xtra stiff wire into the LV and removed the pigtail from the LV. Subsequently, w e took the 26 mm Jama S3 Ultra valve, prepped in the usual sterile fashion, then advanced it over the Amplatz extra stiff wire into the abdominal aorta. The valve was assemble d and then advanced it across the aortic arch and aortic r oot to cross the aortic valve and in the deployment angle, I did an aortic root angiogram, confirmed positioning. Then, under a rapid pacing with a loss of pressure, the valve was deployed successfully and rapid pacing was stopped and removed the deliver y system. Bedside echo confirmed good positioning of the valve without any significant leak. No complications. Then, removed the delivery system and the Jama sheath and closed the access with a MANTA closure device an d then brought the pigtail catheter into the distal aor ta and performed limited angiogram of the access and there was no extravasation. Subsequently , I removed the pacemaker wire, venous sheath and manual pressure was applied and Mynx closure device was used for closure of the right femoral artery with good he mostasis. The patient was transferred to recovery in stable condition. CONCLUSION: Successful transcatheter aortic valv e replacement using 26 mm Geoffrey S3 Ultra valve via left common femoral ar nabil access. PLAN: Admit for monitoring overnight. Dictated By: João Viramontes MD Date Dictated: 09/07/2022 11:15:03 Date Transcribed: 09/07/2022 14:02:45 /KARTIK Receipt ID: [id number] Authenticated by João Viramontes MD On 11/23/2022 10:54:57 AM Electronically Signed by João Viramontes MD on at 1054 PATIENT NAME: ELISABETH BISHOP 2137 2022-09-02 10:06:00-00:00 [facility] ([facility]) Discharge Summary REPORT#:[id number] REPORT STATUS: Signed DATE:09/02/22 TIME: 1006 PATIENT: ELISABETH BISHOP UNIT #: [id number] ROOM/BED: [address] : 47 AGE: 76 SEX: F ATTEND: Rajinder Nair MD ADM AUTHOR: He Powell VENDING MACHINE COIN COLLECTOR * ALL edits or amendments must be made on the [employer]/computer document * PCP PCP Discharge to: home General Information Problem List/A P: 1. S/p TAVR (transcatheter aortic valve replace ment), bioprosthetic 2. Severe aortic stenosis Free Text A P: 1. Severe Symptomatic Aortic Stenosis The patient underwent successful Jama Geoffrey 26 mm valve. Bilateral groins CDI without bleeding/hematoma. Patient to follow up with Dr. Viramontes. 2. Complete Heart Block Patient is s/p pacemaker with Dr. High. Telemetry shows ventricular pacing. Device interrogated and functioning appopriately . Cleared by EP follow up in 2 weeks. Minocycline for 3 days, scripts sent to pharmacy . Discharge date: 09/02/22 Discharge diagnosis: Severe Symptomatic Aortic Stenosis, Complete Hea rt Block Hospital course: This is a 76 year old male w ith severe symtomatic aortic stenosis that presented for elective transcatheter aortic valve replacement. The patient underwent the procedure where a 26 mm Jama Geoffrey V alve. The following day, she developed some aberrancies on telemetry and EP was consult ed, then later that day she developed complete heart block. The patient was urgently taken to the [facility] lab for pacemaker and monitored overnight and now ap propriate for discharge. Consultants: cardiology Med Rec PCP PCP: PCP: João Viramontes MD Med Rec Discharge meds: Continue taking these medications: METOPROLOL SUCC XL (TOPROL XL) 50 MG TAB.SA 50 MILLIGRAM ORAL DAILY. EZETIMIBE (ZETIA) 10 MG TAB 10 MILLIGRAM ORAL DAILY. amLODIPine/BENAZEPRIL (LOTREL 5/20 MG) 5 MG-20 M G CAP 1 CAPSULE ORAL TWICE DAILY. CLOPIDOGREL (PLAVIX) 75 MG TAB 75 MILLIGRAM ORAL DAILY. Instructions: HOLD AM OF PROCEDURE FUROSEMIDE (LASIX) 20 MG TAB 20 MILLIGRAM ORAL DAILY. Instructions: HOLD NIGHT BEFORE AND DAY OF PROCEDURE POTASSIUM CHLORIDE ER (KLOR-CON 10) 10 MEQ TAB.S A 10 MILLIEQUIVALENT ORAL DAILY. CYANOCOBALAMIN (VITAMIN B-12) 500 MCG TAB 500 MICROGRAM ORAL DAILY. UBIDECARENONE (CO Q-10) 100 MG CAP 100 MILLIGRAM ORAL DAILY. ASCORBIC ACID (VITAMIN C) 1,000 MG TAB 1,000 MILLIGRAM ORAL DAILY. MULTIVITAMIN (MULTIPLE VITAMIN) 1 TAB TAB 1 TABLET ORAL DAILY. ASPIRIN (ASPIRIN) 81 MG TAB.CHEW 81 MILLIGRAM ORAL DAILY. Days = 90 Qty = 90 ATORVASTATIN (LIPITOR) 10 MG TAB 10 MILLIGRAM ORAL BEDTIME. [ARI/ZIN/MAG] 1,000 MILLIGRAM ORAL DAILY. [BLACK ELDERERRY] 50 MILLIGRAM ORAL DAILY. Start taking the following new medications: DOXYCYCLINE MONOHYDRATE (MONODOX) 100 MG CAP 100 MILLIGRAM ORAL TWICE DAILY. Qty = 6 No Refills ACETAMINOPHEN/CODEINE (TYLENOL WITH CODEINE #3 3 00/30 MG) 300 MG-30 MG TAB 1 TABLET ORAL EVERY 4 HOURS NEEDED. as neede d for ACUTE PAIN Qty = 15 No Refills Objective VS/I O Last Documented: Result Date Time Pulse Ox 96 09/02 0700 B/P 142/70 09/02 0700 B/P Mean 101 09/02 0700 Pulse 74 09/02 0700 Resp 26 09/02 0700 Temp 36.7 09/02 0400 O2 Delivery Nasal cannula 09/02 1999 O2 Flow Rate 2 09/02 1999 24 hour I O ending at 0700: 09/02 0700 09/01 1900 Intake Total 490.00 600 Output Total 500 Balance -10.00 600 Intake, IV 250.00 Intake, Oral 240 600 Number Voids 3 Output, Urine 500 Patient 72.1 kg Weight Weight Bed scale Measurement Method PATIENT WEIGHT: Weight (lb): 158 Weight (oz): 15.25 Weight (kg): 72.100 General appearance: alert, awake, oriented, no a cute distress, pleasant Head/Eyes: atraumatic, clear cornea, EOMI, normo cephalic Discharge Instructions PCP )( Discharge to: Home/Self Care Discharge Instructions Additional Discharge Routines: Attending Follow- Up, Tray Setter Follow-Up )( Diet: Resume Home Diet/Feeds Follow-up Appointments Attending Physician: Attending Physician: Juan M Nair MD Consulting provider 1: Provider 1: João Viramontes MD Specialty: CardiologyInterventional Consult follow up timeframe: In 1-2 weeks Electronically Signed by He Powell NP on 09/02 at 1024 Electronically Signed by Juan M Nair MD on at 0917 RPT #:[id number] END OF REPORT 2022-09-02 09:11:00-00:00 [facility] Structural Heart Post Progress REPORT#:[id number] REPORT STATUS: Signed DATE:09/02/22 TIME: 910 PATIENT: ELISABETH BISHOP UNIT #: [id number] ROOM/BED: [place] [address] : 47 AGE: 76 SEX: F ATTEND: Rajinder Nair MD ADM AUTHOR: He Powell NP * ALL edits or amendments must be made on the [employer]/computer document * History of Present Illness HPI HPI: This is a 76 year old female with a past medical history of severe symptomatic aortic stenosis that presented for elective brito scatheter aortic valve replacement. The patient had successful 26 mm Sa pien Valve implanted. The patient had heart block and a pacemaker was plac ed. History Past medical history: Reports: Atrial fibrillation, Coronary a rtery disease, Hypertension, Prior [place]. Additional medical history: Aortic stenosis Past surgical history: Reports: PCI. Additional surgical history: afib ablation Alcohol use: Denies EtOH use Drug use: Denies recreational drugs Smoking status for patients 13 years old or olde r: Never Smoker Medication/Allergy-Vaccine Hx Allergies: Coded Allergies: dabigatran etexilate (From PRADAXA) (Severe, HIV ES 03/27/21) dronedarone (From MULTAQ) (Severe, HIVES 2 1) metformin (Severe, HIVES 03/27/21) Ambulatory status: Independent Objective Physical Exam HEENT: anicteric Neck: non-tender, normal thyroid Cardiovascular: BP/pulses equal bilat., normal h eart sounds, regular rate rhythm Respiratory: aerating well, clear to auscultatio n, symmetric expansion, no distress Abdomen: soft Extremities: dry, moves all Musculoskeletal: full range of motion Neuro/CROTCH PIECE BASTER: alert, oriented X 3 Skin: dry, intact Electronically Signed by He Powell NP on 09/03 at 1259 RPT #:[id number] END OF REPORT 2022-09-02 09:02:00-00:00 [facility] ([facility]) Cardiology Progress Note REPORT#:[id number] REPORT STATUS: Signed DATE:09/02/22 TIME: 901 PATIENT: ELISABETH BISHOP UNIT #: [id number] ROOM/BED: [place] [address] : 47 AGE: 76 SEX: F ATTEND: Rajinder Nair MD ADM AUTHOR: Mandy De La Rosa CIRCUIT BOARD REPAIR TECHNICIAN * ALL edits or amendments must be made on the [employer]/computer document * Subjective Comments: 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 Objective General VS/I O: 24 hour I O ending at 0700: 09/02 0700 09/01 1900 Intake Total 490.00 600 Output Total 500 Balance -10.00 600 Intake, IV 250.00 Intake, Oral 240 600 Number Voids 3 Output, Urine 500 Patient 72.1 kg Weight Weight Bed scale Measurement Method Vital Signs: Date Time Temp Pulse Resp B/P B/P Pulse O2 O2 F low FiO2 Mean Ox Delivery Rate 09/02 0700 74 26 142/70 101 96 09/02 0603 68 17 135/63 91 94 09/02 0500 68 16 122/58 83 95 09/02 0401 70 16 155/67 97 95 09/02 0400 36.7 09/02 0300 68 16 134/61 88 94 09/02 0200 70 18 133/63 91 94 09/02 0100 68 18 139/63 91 98 09/02 0000 36.8 09/02 0000 68 17 134/63 90 98 09/01 2200 73 19 142/66 95 99 09/01 2100 74 18 143/62 89 98 09/02 1999 36.9 09/02 1999 Nasal 2 cannula 09/02 1999 77 22 129/62 89 97 04/19 1913 85 45 97 PATIENT WEIGHT: Weight (lb): 158 Weight (oz): 15.25 Weight (kg): 72.100 Medications: Active Meds + DC'd Last 24 Hrs Minocycline HCl (Minocycline) 100 MG BID PO (UNV ) Mupirocin (BACTROBAN 2% 22 GM OINTMENT) 1 APPLIC BID NASAL Fentanyl Citrate (SUBLIMAZE) 0 .STK-MED ONE .ROU TE (DC) Midazolam HCl (VERSED) 0 .STK-MED ONE .ROUTE (D C) Gentamicin Sulfate (GARAMYCIN) 0 .STK-MED ONE .R OUTE (DC) Lidocaine HCl (LIDOCAINE HCL/PF) 0 .STK-MED ONE .ROUTE (DC) Sodium Bicarbonate (SODIUM BICARBONATE) 0 .STK-M ED ONE IV (DC) Vancomycin HCl (VANCOMYCIN HCL) 0 .STK-MED ONE . ROUTE (DC) Ascorbic Acid (ASCORBIC ACID) 1,000 MG DAILY PO Aspirin (ASPIRIN) 81 MG DAILY PO Clopidogrel Bisulfate (Plavix) 75 MG DAILY PO Cyanocobalamin (Vitamin B-12 500 mcg tab) 500 MC G DAILY PO Ezetimibe (ZETIA) 10 MG DAILY PO Furosemide (LASIX) 20 MG DAILY PO Metoprolol Succinate (TOPROL XL) 50 MG DAILY PO (DC) Multivitamins (TAB-A-BRIDGETTE) 1 TAB DAILY PO Potassium Chloride (POTASSIUM CHLORIDE 10 MEQ TA B.ER) 10 MEQ DAILY PO Atorvastatin Calcium (LIPITOR) 10 MG BEDTIME PO Atropine Sulfate (ATROPINE SULFATE 0.1MG/ML SYR) 0.5 MG ASDIR PRN IV Sodium Chloride (SODIUM CHLORIDE 0.9%) 500 ML DIR PRN IV Acetaminophen (TYLENOL EXTRA STRENGTH) 1,000 MG PREOP ONCALL PO (CKD) Gabapentin (NEURONTIN) 200 MG PREOP ONCALL PO (C KD) Lactated Ringer's (LACTATED RINGERS) 1,000 ML CO EOP ONCALL IV Lidocaine HCl (LIDOCAINE HCL/PF) 2 ML PREOP ONCA LL LOCAL Lidocaine HCl (LIDOCAINE HCL/PF) 2 ML PREOP ONCA LL LOCAL Sodium Chloride (SODIUM CHLORIDE 0.9%) 500 ML CO EOP ONCALL IV Sodium Chloride (SODIUM CHLORIDE 0.9%) 500 ML CO EOP ONCALL IV Sodium Chloride (SODIUM CHLORIDE 0.9%) 1,000 ML PREOP ONCALL IV Sodium Chloride (SODIUM CHLORIDE) 5 ML ASDIR PRN IV Sodium Chloride (SODIUM CHLORIDE) 10 ML ASDIR CO N IV Sodium Chloride (SODIUM CHLORIDE 0.9%) 250 ML DIR PRN IV Pacemaker: permanent Physical Exam General appearance: alert, awake, oriented, no a cute distress Neck: non-tender, no JVD Cardiovascular: CV assessment: regular rate and rhythm Respiratory: clear to auscultation, no distress Abdomen: soft, non-tender, normal bowel sounds Lower extremity: LE assessment: no calf tenderness, no edema Musculoskeletal: normal inspection Neuro/CROTCH PIECE BASTER: alert, oriented X 3 Considered stroke alert: no Skin: dry, intact Wound/incision: Location: Left upper chest PPM site covered with pressure dressing. Psychiatry: normal affect, normal judgment/insig ht, normal mood Results Findings/Data: Laboratory Tests 09/01 1650 Chemistry POC Glucose (70 - 110 MG/DL) 134 H Radiology data: Recent Impressions: RADIOLOGY - XR CHEST 1 V 09/02 1951 Report Impression - Status: SIGNED Entered: 09/01/20222026 IMPRESSION: Implanted cardiac device without complication. Impression By: [email or web address] - Sonido Leonard M.D. Results: labs reviewed, vital signs reviewed, [facility] personally rev'd Telemetry Interpretation: Atrial sensed ventricularly paced rhythm. Diagnosis, Assessment Plan Problem List/A P: 1. Complete heart block 2. Severe aortic stenosis 3. S/p TAVR (transcatheter aortic valve replace ment), bioprosthetic 4. S/P placement of leadless cardiac pacemaker Plan discussed with: patient, nurse Free Text DxA P Notes Free Text DxA P Notes: 76-year-old female with medical history of CAD, prior PCI/LIONEL, hypertension, hyperlipidemia, paroxysmal a trial fibrillation with prior ablation (not on AC,), aortic stenosis. S/P TAVR pa tient developed post-operative complete heart block requiring PPM placement. 1. Severe symptomatic aortic stenosis status pos t TAVR Post TAVR echocardiogram - LVEF 55 to 60%, sofia l wall motion, bioprosthetic valve mean aortic gradient is 10.8 mmHg, aortic valve area 1.9 cm , no perivalvular leak, no pericardial effusion. Continue dual antiplatelet therapy and statin resume metoprolol 2. Post TAVR left bundle branch block and comple te heart block 09/01 - s/p dual chamber PPM EP following 3. CAD with prior PCI/LIONEL Continue CAD meds except beta-nona No chest pain 4. Hypertension Continue antihypertensive medications Doing well post PPM DC home when ok with EP Outpatient follow-up with [facility] and Dr. High . at 1123 Electronically Signed by Juan M Nair MD on at 1350 RPT #:[id number] END OF REPORT 2022-09-02 08:15:00-00:00 [facility] ([facility]) EP Progress Note REPORT#:[id number] REPORT STATUS: Signed DATE:09/02/22 TIME: 814 PATIENT: ELISABETH BISHOP UNIT #: [id number] ROOM/BED: [place] [address] : 47 AGE: 76 SEX: F ATTEND: Hunter Nair MD ADM AUTHOR: Sepideh Bronson VENDING MACHINE COIN COLLECTOR * ALL edits or amendments must be made on the [employer]/computer document * Thelma Bronson 09/02/22 0815: Subjective Chief complaint: Patient states she feels much better, denies CP, dizziness, palpitations Patient reports: No: complaints. Nursing reports: No: complaints. Objective General VS/I O Laboratory Tests 09/02/22 0935: [Embedded Image Not Available] Current Medications Sig/Americo Start time Last Medication Dose Route Stop Time Status Admin Metoprolol Succinate 50 MG DAILY 09/02 0915 AC PO 10/02 0914 Doxycycline 100 MG BID 09/02 0900 AC Monohydrate PO 09/07 0859 Mupirocin 1 APPLIC BID 09/02 09 AC 09/02 NASAL 09/06 2101 0858 Fentanyl Citrate 0 .STK-MED ONE 09/01 1748 DC 09/01 .ROUTE 181 Midazolam HCl 0 .STK-MED ONE 09/01 1748 DC 08/14 9 .ROUTE 1816 Gentamicin Sulfate 0 .STK-MED ONE 09/01 1723 DC 09/01 .ROUTE 1816 Lidocaine HCl 0 .STK-MED ONE 09/01 172 DC 08/14 9 .ROUTE 1816 Sodium Bicarbonate 0 .STK-MED ONE 09/01 1723 DC 09/01 IV 1816 Vancomycin HCl 0 .STK-MED ONE 09/01 1723 DC .ROUTE 1816 Ascorbic Acid 1,000 MG DAILY 09/01 0900 AC 08/15 0 PO 10/01 0859 0858 Aspirin 81 MG DAILY 09/01 0900 AC 09/02 PO 10/01 0859 0858 Clopidogrel Bisulfate 75 MG DAILY 09/01 09 AC 09/02 PO 10/01 0859 0858 Cyanocobalamin 500 MCG DAILY 09/01 0900 AC 08/15 0 PO 10/01 0859 0857 Ezetimibe 10 MG DAILY 09/01 0900 AC 09/02 PO 10/01 0859 0857 Furosemide 20 MG DAILY 09/01 0900 AC 09/02 PO 10/01 0859 0857 Metoprolol Succinate 50 MG DAILY 09/01 0900 DC 09/01 PO 10/01 0859 0824 Multivitamins 1 TAB DAILY 09/01 0900 AC 09/02 PO 10/01 0859 0857 Potassium Chloride 10 MEQ DAILY 09/01 0900 AC 0 09/02 PO 10/01 0859 0857 Atorvastatin Calcium 10 MG BEDTIME 08/31 2100 A C 09/01 PO 09/30 2059 2105 Atropine Sulfate 0.5 MG ASDIR PRN 08/31 1530 AC IV 09/30 1529 Sodium Chloride 500 ML ASDIR PRN 08/31 1530 AC IV 09/30 1529 Acetaminophen 1,000 MG PREOP ONCALL 08/31 0500 DC PO 09/30 0459 Gabapentin 200 MG PREOP ONCALL 08/31 0500 DC PO 09/30 0459 Lactated Ringer's 1,000 ML PREOP ONCALL 08/31 0 500 DC IV 09/30 0459 Lidocaine HCl 2 ML PREOP ONCALL 08/31 0500 DC LOCAL 09/30 0459 Lidocaine HCl 2 ML PREOP ONCALL 08/31 0500 DC LOCAL 09/30 0459 Sodium Chloride 500 ML PREOP ONCALL 08/31 0500 DC IV 09/30 0459 Sodium Chloride 500 ML PREOP ONCALL 08/31 0500 DC IV 09/30 0459 Sodium Chloride 1,000 ML PREOP ONCALL 08/31 050 0 DC IV 09/30 0459 Sodium Chloride 5 ML ASDIR PRN 08/27 1600 DC IV 09/26 1559 Sodium Chloride 10 ML ASDIR PRN 08/27 1600 DC IV 09/26 155 Sodium Chloride 250 ML ASDIR PRN 08/27 1600 DC IV 09/26 155 Last Documented: Result Date Time Pulse Ox 96 09/02 0700 B/P 142/70 09/02 0700 B/P Mean 101 09/02 0700 Pulse 74 09/02 0700 Resp 26 09/02 0700 Temp 36.7 09/02 0400 O2 Delivery Nasal cannula 09/02 1999 O2 Flow Rate 2 09/02 1999 24 hour I O ending at 0700: 09/02 0700 09/01 1900 Intake Total 490.00 600 Output Total 500 Balance -10.00 600 Intake, IV 250.00 Intake, Oral 240 600 Number Voids 3 Output, Urine 500 Patient 72.1 kg Weight Weight Bed scale Measurement Method PATIENT WEIGHT: Weight (lb): 158 Weight (oz): 15.25 Weight (kg): 72.100 Physical Exam General appearance: alert, awake, oriented, no a cute distress, no respiratory distress HEENT: mucosal membranes moist Neck: non-tender Cardiovascular: CV assessment: regular rate and rhythm, pedal p ulses present, no ectopy Respiratory: decreased breath sounds, shortness of breath Abdomen: soft, non-tender Genitourinary: no flank pain Extremities: dry, moves all, no edema Musculoskeletal: normal inspection Neuro/CROTCH PIECE BASTER: alert, oriented X 3, normal speech Skin: dry, intact Psychiatry: normal affect, normal judgment/insig ht EKG Interpretation: normal sinus rhythm, atriove ntricular pacing Treatment Prophylaxis Treatment Prophylaxis Oxygen: room air Diagnosis, Assessment Plan Free Text A P: Assessment: 1. Complete heart block/3rd degree AV block/symp tomatic - s/p dual chamber PPM, pres sure dressing and sling intact, site dressing clean, dry, intact, no signs of bleeding, hematoma, inf ection - NSR with AV pacing, HR 70s - Hemodynamically stable 2. Dizziness secondary to complete HB - Improved s/p PPM 3. Severe symptomatic aortic stenosis status pos t TAVR Post TAVR echocardiogram - LVEF 55 to 60%, sofia l wall motion, bioprosthetic valve mean aortic gradient is 10.8 mmHg, aortic valve area 1.9 cm , no perivalvular leak, no pericardial effusion. - Continue dual antiplatelet therapy and statin 2. Post TAVR left bundle branch block and heart block - Telemetry monitoring - s/p PPM 3. CAD with prior PCI/LIONEL Continue CAD meds No chest pain 4. Hypertension Continue antihypertensive medications Plan/Recommendations: - s/p Dual chamber PPM ([facility]) 09/01/2022 - Device interrogated by [facility] today, functioning properly with no events noted, mode DDD, Lowe r rate 60 bpm, max tracking and sensor rate 130 bpm, A pacing 3%, V pacing 95% - Ok to discharge home From EP standpoint - Minocycline 100mg PO BID x 5 days - Discharge Instructions: Follow up with Dr. High in 1 week. Keep dress ing on pacemaker site until follow up with Dr. High. Keep incisio n dry for 3 days, ok to shower after 3 days with plain water, no soap, pat dry, no scru bbing, Notify Dr. High's office for excessive swelling or drainage from w ound, redness with warmth at site, fever above 101. No driving for 2 weeks, n o lifting elbow above the shoulder or arm above the head for 2 weeks, wear arm sling for 3 days then during sleep for 2 weeks, no lifting gre ater than 10 lbs, golf swings, tennis, or any other pushing pulling motions with left a rm for 6 weeks. Consultants: cardiology Code status: full code Plan discussed with: patient Mathew Rivera 09/03/22 1117: Attestations Physician Attestation Agree w/findings plan: Patient seen and examined on 09/02/2022. I agree with the findings and plan as documented by Sepideh Bronson NP. at 1050 at 1117 RPT #:[id number] END OF REPORT 2022-09-02 05:10:00-00:00 [id number] [address] PATIENT NAME: ELISABETH BISHOP ADMIT DATE: 3 ACCOUNT NO: [id number] ROOM NO: [id number] AGE: 76 REPORT TYPE: eELECTROCARDIOGRAM REPORT SEX: F ADMITTING PHYSICIAN:João Viramontes MD ATTENDING PHYSICIAN:Juan M Nair MD Order: [id number] Test Reason : S/P PPM AM Test Date/Time Stamp: TueSep 02 2022 05:10:37 Blood Pressure : / mmHG Vent. Rate : 072 BPM Atrial Rate : 071 BPM P-R Int : 190 ms QRS Dur : 166 ms QT Int : 464 ms P-R-T Axes : 039 -65 099 degree s QTc Int : 508 ms Atrial-sensed ventricular-paced rhythm with maye ature atrial complexes with aberrant conduction Abnormal ECG When compared with ECG of 01-SEP-2022 20:00, Significant changes have occurred Confirmed by MD DENNIS GERARD ([id number]) on 09/03/19 9:12:51 PM Referred By: Debbie Physician Confirmed by:EUSEBIO RAMIREZ MD at 2112 PATIENT NAME: ELISABETH BISHOP 7 2022-09-01 21:37:00-00:00 [id number] [place] [address] PATIENT NAME: ELISABETH BISHOP ADMIT DATE: 3 ACCOUNT NO: [id number] ROOM NO: [facility] AGE: 76 REPORT TYPE: OPERATIVE REPORT SEX: F ADMITTING PHYSICIAN:João Viramontes MD ATTENDING PHYSICIAN:Juan M Nair MD OPERATION DATE: 09/01/2022 PREOPERATIVE DIAGNOSES: 1. Complete heart block. 2. Syncope. 3. Status post transcatheter aortic valve replac ement. POSTOPERATIVE DIAGNOSES: 1. Complete heart block. 2. Syncope. 3. Status post transcatheter aortic valve replac ement. PROCEDURE PERFORMED: 1. Dual-chamber pacemaker placement. 2. Moderate sedation. Moderate conscious sedation was provided under my direct supervision by sedation trained nurse. Sedation time 30 minutes. Versed and fentanyl. See report for details. DESCRIPTION OF PROCEDURE: After informed consent was obtained, the patient was brought to the electrophysio logy laboratory in a fasting nonsedated state. Area over her chest was prepped and draped in the usu al sterile fashion. Moderate sedation and prophylactic antibiotic was given. Lidocaine was used as local anesthetic and a 3-cm skin incision was made in the left subclavicular area. Electrocautery sharp and adriana nt dissection were used to reach the muscular fascia and a pocket was created for event impla ntation of the device. Vascular access was obtained x2 in the left axillary vein using modified Seldinger technique under fluoroscopy guidance, two sheaths were placed, ventricular lead to the RV apex, R-wave 11, pacing 0.4. Atrial lead to the right atrial appendage, P-wave 4, pacing 1.4. Sheaths removed from the body. Le ads secured to fascia using Ethibond. Pocket was irrigated with antibiotic s olution using the pulse charrer. Hemostasis was meticulous. Le ads connected to the device and entire pacemaker system placed in the pocket. Incision was closed using absorbable sutures and Dermabond. The patient zev ated the procedure well. Procedure was complete. SUMMARY OF HARDWARE IMPLANTED: 1. The new pacemaker is [employer] [id number] . 2. Atrial lead [phone]. 3. Ventricular lead [phone]. IMPRESSION: Successful dual- chamber pacemaker placement via left axillary vein. PATIENT NAME: ELISABETH BISHOP 2137 PLAN: 1. Routine postop monitoring on telemetry bed. 2. Chest x-ray. 3. Follow up in 1-2 weeks. Dictated By: Mathew Martel MD Date Dictated: 09/01/2022 21:37:26 Date Transcribed: 09/01/2022 21:47:12 [facility] Receipt ID: [id number] Authenticated and Edited by Mathew Martel MD On 09/02/22 9:40:00 AM at 0941 PATIENT NAME: ELISABETH BISHOP 2137 2022-09-01 20:00:00-00:00 [id number] [address] PATIENT NAME: ELISABETH BISHOP ADMIT DATE: 3 ACCOUNT NO: [id number] ROOM NO: 3301 AGE: 76 REPORT TYPE: eELECTROCARDIOGRAM REPORT SEX: F ADMITTING PHYSICIAN:João Viramontes MD ATTENDING PHYSICIAN:Juan M Nair MD Order: [id number] Test Reason : S/P PERM PACEMAKER Test Date/Time Stamp: TueSep 01 2022 20:00:55 Blood Pressure : / mmHG Vent. Rate : 077 BPM Atrial Rate : 077 BPM P-R Int : 196 ms QRS Dur : 162 ms QT Int : 442 ms P-R-T Axes : 089 -68 096 degree s QTc Int : 500 ms Atrial-sensed ventricular-paced rhythm Abnormal ECG When compared with ECG of 01-SEP-2022 16:54, Significant changes have occurred Confirmed by MD DENNIS GERARD ([id number]) on 09/03/19 9:12:45 PM Referred By: Juan M Nair Confirmed by:EUSEBIO DENNIS MD Electronically Signed by Eusebio Dennis MD on 0 09/02/22 at 2112 PATIENT NAME: ELISABETH BISHOP 7 2022-09-01 16:54:00-00:00 [id number] [place] [address] PATIENT NAME: ELISABETH BISHOP ADMIT DATE: ACCOUNT NO: [id number] ROOM NO: G.3301 AGE: 76 REPORT TYPE: eELECTROCARDIOGRAM REPORT SEX: F ADMITTING PHYSICIAN:João Viramontes MD ATTENDING PHYSICIAN:Juan M Nair MD Order: [id number] Test Reason : RAPID RESPONSE Test Date/Time Stamp: TueSep 01 2022 16:54:08 Blood Pressure : / mmHG Vent. Rate : 049 BPM Atrial Rate : 097 BPM P-R Int : 000 ms QRS Dur : 150 ms QT Int : 482 ms P-R-T Axes : 056 -45 098 degree s QTc Int : 435 ms Sinus rhythm with complete heart block and Wide QRS rhythm Left axis deviation Left bundle branch block Abnormal ECG When compared with ECG of 01-SEP-2022 07:04, Significant changes have occurred Confirmed by MD JEANNIE, EUSEBIO ([id number]) on 09/03/19 9:12:38 PM Referred By: Juan M Nair Confirmed by:EUSEBIO DENNIS MD Electronically Signed by Eusebio Dennis MD on 0 09/02/22 at 2111 PATIENT NAME: ELISABETH BISHOP 7 2022-09-01 14:11:00-00:00 [facility] REPORT#:[id number] REPORT STATUS: Signed DATE:09/01/22 TIME: 141 PATIENT: ELISABETH BISHOP UNIT #: [id number] ROOM/BED: [place] [address] : 47 AGE: 76 SEX: F ATTEND: Rajinder Nair MD ADM AUTHOR: Annie Marshall P * ALL edits or amendments must be made on the [employer]ik[employer] document * General Post-op: day 1 Status post: TAVR Subjective Chief complaint: Severe aortic stenosis Admitted for TAVR Review of Systems Constitutional: Denies: fever, malaise. Allergy/Immun: Denies: allergic reaction. GI: Denies: abdominal pain, nausea, vomiting. Heme: Denies: bleeding. All systems rev neg: except as marked Objective General VS/I O Last Documented: Result Date Time Pulse Ox 98 09/01 0821 B/P 167/74 09/01 0821 B/P Mean 0.0 09/01 0821 O2 Delivery Room air 09/01 0821 Temp 99.7 09/01 0821 Pulse 93 09/01 0821 Resp 16 09/01 0821 O2 Flow Rate 6 08/31 1742 24 hour I O ending at 0700: 09/01 0700 08/31 1900 Intake Total Output Total Balance Number Voids 5 Patient 157 lb Weight Weight Standing scale Measurement Method PATIENT WEIGHT: Weight (lb): 156 Weight (oz): 11.98 Weight (kg): 71.100 Physical Exam General appearance: alert, oriented, mental stat us normal, no respiratory distress HEENT: anicteric Cardiovascular: normal heart sounds Respiratory: aerating well, clear to auscultatio n, symmetric expansion, no distress Abdomen: soft, non-tender Extremities: moves all Psychiatry: normal affect, normal mood Current Medications Medications: Active Meds + DC'd Last 24 Hrs Ascorbic Acid (ASCORBIC ACID) 1,000 MG DAILY PO Aspirin (ASPIRIN) 81 MG DAILY PO Clopidogrel Bisulfate (Plavix) 75 MG DAILY PO Cyanocobalamin (Vitamin B-12 500 mcg tab) 500 MC G DAILY PO Ezetimibe (ZETIA) 10 MG DAILY PO Furosemide (LASIX) 20 MG DAILY PO Metoprolol Succinate (TOPROL XL) 50 MG DAILY PO (DC) Multivitamins (TAB-A-BRIDGETTE) 1 TAB DAILY PO Potassium Chloride (POTASSIUM CHLORIDE 10 MEQ TA B.ER) 10 MEQ DAILY PO Atorvastatin Calcium (LIPITOR) 10 MG BEDTIME PO Protamine Sulfate (PROTAMINE SULFATE) 0 .STK-MED ONE IV (DC) Atropine Sulfate (ATROPINE SULFATE 0.1MG/ML SYR) 0.5 MG ASDIR PRN IV Sodium Chloride (SODIUM CHLORIDE 0.9%) 1,000 ML .[id number] ONE IV (DC) Sodium Chloride (SODIUM CHLORIDE 0.9%) 500 ML A SDIR PRN IV Fentanyl Citrate (SUBLIMAZE) 50 MCG PACU Q10MIN PRN PRN IV (DC) Fentanyl Citrate (SUBLIMAZE) 25 MCG PACU Q10MIN PRN PRN IV (DC) Hydralazine HCl (APRESOLINE) 5 MG PACU Q10MIN CO N PRN IV (DC) Hydromorphone HCl (DILAUDID) 0.5 MG PACU Q10MIN PRN PRN IV (DC) Hydromorphone HCl (DILAUDID) 0.25 MG PACU Q5MIN PRN PRN IV (DC) Labetalol HCl (LABETALOL HCL) 5 MG PACU Q10MIN P RN PRN IV (DC) Meperidine HCl (MEPERIDINE HCL/PF) 12.5 MG PACU ONCE PRN IV (DC) Morphine Sulfate (morphine SULFATE) 2 MG PACU Q1 0MIN PRN PRN IV (DC) Ondansetron HCl (ZOFRAN) 4 MG PACU ONCE PRN IV ( DC) Parenteral Electrolytes (PLASMA-LYTE A pH 7.4) 1 ,000 ML .Q24H IV (DC) Fentanyl Citrate (SUBLIMAZE) 0 .STK-MED ONE .ROU TE (DC) Midazolam HCl (VERSED) 0 .STK-MED ONE .ROUTE (DC ) Parenteral Electrolytes (PLASMA-LYTE A pH 7.4) 1 ,000 ML .STK-MED ONE IV (DC) Dexmedetomidine HCl (PRECEDEX) 0 .STK-MED ONE IV (DC) Heparin Sodium (HEPARIN SODIUM) 0 .STK-MED ONE . ROUTE (DC) Ondansetron HCl (ZOFRAN) 0 .STK-MED ONE .ROUTE ( DC) Sodium Chloride (SODIUM CHLORIDE 0.9%) 100 ML .S TK-MED ONE IV (DC) Cefazolin Sodium (KEFZOL OR ANCEF) 0 .STK-MED ON E .ROUTE (DC) Heparin Sodium/Sodium Chloride (HEPARIN 2,000 UN ITS/NS 1,000mL) 2,000 ML .STK-MED ONE IV (DC) Heparin Sodium/Sodium Chloride (HEPARIN 1,000 UN ITS/NS 500ML) 1,000 ML .STK- MED ONE IV (DC) Iopamidol (ISOVUE-370 100ML) 0 .STK-MED ONE IV ( DC) Lidocaine HCl (LIDOCAINE HCL/PF) 0 .STK-MED ONE .ROUTE (DC) Acetaminophen (TYLENOL EXTRA STRENGTH) 1,000 MG PREOP ONCALL PO (CKD) Gabapentin (NEURONTIN) 200 MG PREOP ONCALL PO (C KD) Lactated Ringer's (LACTATED RINGERS) 1,000 ML CO EOP ONCALL IV Lidocaine HCl (LIDOCAINE HCL/PF) 2 ML PREOP ONCA LL LOCAL Lidocaine HCl (LIDOCAINE HCL/PF) 2 ML PREOP ONCA LL LOCAL Sodium Chloride (SODIUM CHLORIDE 0.9%) 500 ML CO EOP ONCALL IV Sodium Chloride (SODIUM CHLORIDE 0.9%) 500 ML CO EOP ONCALL IV Sodium Chloride (SODIUM CHLORIDE 0.9%) 1,000 ML PREOP ONCALL IV Sodium Chloride (SODIUM CHLORIDE) 5 ML ASDIR PRN IV Sodium Chloride (SODIUM CHLORIDE) 10 ML ASDIR CO N IV Sodium Chloride (SODIUM CHLORIDE 0.9%) 250 ML DIR PRN IV Results Findings/Data: Laboratory Tests 09/01 0440 Chemistry Sodium (134 - 147 mEq/L) 139 Potassium (3.4 - 5.0 mEq/L) 3.9 Chloride (100 - 108 mEq/L) 105 Carbon Dioxide (21 - 33 mEq/l) 29 Anion Gap (0 - 20) 9 BUN (7 - 18 mg/dL) 13 Creatinine (0.6 - 1.3 mg/dL) 0.7 Glomerular Filtr Rate (70 - 80) 90.7 H Glucose (70 - 110 mg/dL) 136 H Calcium (8.0 - 10.5 mg/dL) 9.0 Magnesium (1.80 - 2.40 mg/dL) 1.93 Laboratory Tests 08/31 1619 Coagulation Activated Coag Time (74 - 137 SEC) 233 H Laboratory Tests 09/01 0440 Hematology WBC (4.5 - 11.0 x10 3/uL) 12.0 H RBC (3.54 - 5.02 x10 6/uL) 4.13 Hgb (11.0 - 15.0 g/dL) 12.9 Hct (33.0 - 45.0 %) 37.9 MCV (81.0 - 99.0 fL) 91.8 MCH (27.0 - 33.0 pg) 31.2 MCHC (33.0 - 37.0 g/dL) 34.0 RDW (11.5 - 14.5 %) 12.7 Plt Count (150 - 400 x10 3/uL) 144 L MPV (7.0 - 9.0 fL) 10.6 H Neut % (Auto) (56.0 - 77.0 %) 81.6 H Lymph % (Auto) (14.0 - 32.0 %) 5.9 L Bent % (Auto) (4.8 - 9.0 %) 10.0 H Eos % (Auto) (0.3 - 3.7 %) 1.8 Baso % (Auto) (0.0 - 2.0 %) 0.4 Neut # (Auto) (2.0 - 7.6 x10 3/uL) 9.74 H Lymph # (Auto) (1.0 - 3.8 x10 3/uL) 0.71 L Bent # (Auto) (0.1 - 0.8 x10 3/uL) 1.20 H Eos # (Auto) (0.0 - 0.2 x10 3/uL) 0.22 H Baso # (Auto) (0.0 - 0.2 x10 3/uL) 0.05 Abs Immat Gran (auto) (0.00 - 0.03 x10 3/uL) 0. 04 H Add Manual Diff NO Immature Gran % (0.0 - 2.0 %) 0.3 Nucleated RBC % (0 - 0 %) 0.0 Nucleated RBCs # (Man) (0.0 - 0.1 x10 3/uL) 0.0 0 Radiology data: Recent Impressions: RADIOLOGY - XR CHEST 1 V 08/31 1808 Report Impression - Status: SIGNED Entered: 08/31/2022 1843 IMPRESSION: Mild vascular congestion. Impression By: [email or web address] - John Galicia M.D. Diagnosis, Assessment Plan Hospital course to date: This is a 76-year-old female with a past medical history of coronary artery disease, status post PCI, hy pertension, hyperlipidemia, carotid stenosis, aortic stenosis who presented to our clinic for evaluation for aortic valve stenosis. The patient is followed by Dr. Viramontes in the outpatient setting. Her last left heart catheterization with s taged PCI to the L[facility] at [facility] in March 2021. She was deemed high risk for s urgical AVR, the case was presented in the structural conference and patient admitted to the hospital for transcatheter aortic valve implantation. 08/31 S/p 1.Transcatheter aortic valve replacement (TAVR) utilizing # 26 [employer]'s Geoffrey S3 Ultra pericardial valve via transfemoral appr oac with MAC. 09/01 Post TAVR echocardiogram - LVEF 55 to 60%, sofia l wall motion, bioprosthetic valve mean aortic gradient is 10.8 mmHg, aortic valve area 1.9 cm , no perivalvular leak, no pericardial effusion. Developed heart block, EP eval pending Dual antiplatelet therapy. No metoprolol given h eart block at 1421 at 3541 RPT #:[id number] END OF REPORT 2022-09-01 13:24:00-00:00 [facility] EP Consultation Note REPORT#:[id number] REPORT STATUS: Signed DATE:09/01/22 TIME: 1324 PATIENT: ELISABETH BISHOP UNIT #: [id number] ROOM/BED: [place] [address] : 47 AGE: 76 SEX: F ATTEND: Rajinder Nair MD ADM AUTHOR: Sepideh Bronson VENDING MACHINE COIN COLLECTOR * ALL edits or amendments must be made on the el [employer]/computer document * Thelma Bronson 09/01/22 1324: History of Present Illness Requesting clinician: Dr. Nair Reason for consult: LBBB, pause post TAVR Chief complaint: chest pressure, dizziness PCP: PCP: João Viramontes MD HPI: The patient is a 76-year-old female with medical history of CAD, prior PCI/LIONEL, hypertension, hyperlipidemia , paroxysmal atrial fibrillation with prior ablation (not on AC,), aortic stenosis. She was admitted for elective transcatheter aortic valve replacement. Sh haley was observed overnight in [facility] IMU and did well. No SOB, no chest pain, no palpitation, no syncope. Post TAVR (08/31/2022) echocardiogram reviewed, LVE F 55 to 60%, normal wall motion, bioprosthetic valve mean aortic gradient is 10.8 mmHg, aortic valve area 1.9 cm , no perivalvular leak, no pericardial effusion. Pre-TAVR EKG was normal sinu s rhythm with incomplete right bundle branch block. Immediate post TAVR EKG showed left bund le branch block. EKG done today showed sinus rhythm with PVCs and nonspecific intravent ricular block. Later today telemetry showed transient complete hear t block. EP consulted for LBBB, pause, nonspecific intraventricular block. Thank you min loomis for the consult and the opportunity to participate in the patient's care . History - Adult longitudinal Past medical history: Reports: Atrial fibrillation, Coronary a rtery disease, Hypertension, Prior [place]. Additional medical history: Aortic stenosis Past surgical history: Reports: PCI. Additional surgical history: afib ablation Alcohol use: Denies EtOH use Drug use: Denies recreational drugs Smoking status for patients 13 years old or olde r: Never Smoker Allergies: Coded Allergies: dabigatran etexilate (From PRADAXA) (Severe, HIV ES 03/27/21) dronedarone (From MULTAQ) (Severe, HIVES 1) metformin (Severe, HIVES 03/27/21) Ambulatory status: Independent Objective VS/I O Laboratory Tests 09/01/22 0440: [Embedded Image Not Available] Current Medications Sig/Americo Start time Last Medication Dose Route Stop Time Status Admin Gentamicin Sulfate 0 .STK-MED ONE 09/01 1722 DC .ROUTE Lidocaine HCl 0 .STK-MED ONE 09/01 172 DC .ROUTE Sodium Bicarbonate 0 .STK-MED ONE 09/01 172 DC IV Vancomycin HCl 0 .STK-MED ONE 09/01 172 DC .ROUTE Ascorbic Acid 1,000 MG DAILY 09/01 0900 AC 09/01 PO 10/01 0859 0824 Aspirin 81 MG DAILY 09/01 09 AC 09/01 PO 10/01 0859 0823 Clopidogrel Bisulfate 75 MG DAILY 09/01 09 AC 09/01 PO 10/01 0859 0825 Cyanocobalamin 500 MCG DAILY 09/01 0900 AC 08/14 9 PO 10/01 0859 0823 Ezetimibe 10 MG DAILY 09/01 0900 AC 09/01 PO 10/01 0859 0825 Furosemide 20 MG DAILY 09/01 0900 AC 09/01 PO 10/01 0859 0824 Metoprolol Succinate 50 MG DAILY 09/01 0900 DC 0 09/01 PO 10/01 0859 0824 Multivitamins 1 TAB DAILY 09/01 0900 AC 09/01 PO 10/01 0859 0823 Potassium Chloride 10 MEQ DAILY 09/01 0900 AC 0 09/01 PO 10/01 0859 0824 Atorvastatin Calcium 10 MG BEDTIME 08/31 2100 AC 08/31 PO 09/304 Atropine Sulfate 0.5 MG ASDIR PRN 08/31 1530 AC IV 09/30 1529 Sodium Chloride 1,000 ML .[id number] ONE 08/31 1530 DC 08/31 IV 09/01 0449 1736 Sodium Chloride 500 ML ASDIR PRN 08/31 1530 AC IV 09/30 1529 Fentanyl Citrate 50 MCG PACU Q10MIN PRN PRN 08/14 8 1515 DC IV 09/01 0111 Fentanyl Citrate 25 MCG PACU Q10MIN PRN PRN 08/14 8 1515 DC IV 09/01 0111 Hydralazine HCl 5 MG PACU Q10MIN PRN PRN 08/31 1 515 DC IV 09/01 0111 Hydromorphone HCl 0.5 MG PACU Q10MIN PRN PRN 1515 DC IV 09/01 0111 Hydromorphone HCl 0.25 MG PACU Q5MIN PRN PRN 1515 DC IV 09/01 0111 Labetalol HCl 5 MG PACU Q10MIN PRN PRN 08/31 151 5 DC IV 09/01 0111 Meperidine HCl 12.5 MG PACU ONCE PRN 08/31 1515 DC IV 09/01 0111 Morphine Sulfate 2 MG PACU Q10MIN PRN PRN 08/31 1515 DC IV 09/01 0111 Ondansetron HCl 4 MG PACU ONCE PRN 08/31 1515 DC IV 09/01 0111 Parenteral 1,000 ML .Q24H 08/31 1515 DC Electrolytes IV 09/01 0111 Acetaminophen 1,000 MG PREOP ONCALL 08/31 0500 C KD PO 09/30 0459 Gabapentin 200 MG PREOP ONCALL 08/31 0500 CKD PO 09/30 0459 Lactated Ringer's 1,000 ML PREOP ONCALL 08/31 05 00 AC IV 09/30 0459 Lidocaine HCl 2 ML PREOP ONCALL 08/31 0500 AC LOCAL 09/30 0459 Lidocaine HCl 2 ML PREOP ONCALL 08/31 0500 AC LOCAL 09/30 0459 Sodium Chloride 500 ML PREOP ONCALL 08/31 0500 A C IV 09/30 0459 Sodium Chloride 500 ML PREOP ONCALL 08/31 0500 A C IV 09/30 0459 Sodium Chloride 1,000 ML PREOP ONCALL 08/31 0500 AC IV 09/30 0459 Sodium Chloride 5 ML ASDIR PRN 08/27 1600 AC IV 09/26 1559 Sodium Chloride 10 ML ASDIR PRN 08/27 1600 AC IV 09/26 1559 Sodium Chloride 250 ML ASDIR PRN 08/27 1600 AC IV 09/26 1559 Last Documented: Result Date Time Pulse Ox 98 09/01 0821 B/P 167/74 09/01 0821 B/P Mean 0.0 09/01 0821 O2 Delivery Room air 09/01 0821 Temp 37.6 09/01 0821 Pulse 93 09/01 0821 Resp 16 09/01 0821 O2 Flow Rate 6 08/31 1742 24 hour I O ending at 0700: 04/19 0700 08/31 1900 Intake Total Output Total Balance Number Voids 5 Patient 71.1 kg Weight Weight Standing scale Measurement Method PATIENT WEIGHT: Weight (lb): 156 Weight (oz): 11.98 Weight (kg): 71.100 General appearance: alert, awake, oriented, no a cute distress, mental status normal, no respiratory distress HEENT: mucosal membranes moist Neck: non-tender Cardiovascular: CV assessment: bradycardia, ectopy, irregular r hythm, pedal pulses present Respiratory: decreased breath sounds, shortness of breath Abdomen: soft, non-tender Genitourinary: no flank pain Extremities: dry, moves all, no edema Musculoskeletal: normal inspection Neuro/CROTCH PIECE BASTER: alert, oriented X 3, normal speech Skin: dry, intact Psychiatry: normal affect, normal judgment/insig ht EKG Interpretation: 3rd degree AV block Treatment Prophylaxis Treatment Prophylaxis Oxygen: nasal cannula Diagnosis, Assessment Plan Free Text A P: Assessment: 1. Complete heart block/3rd degree AV block/symp tomatic - RR called for complete HB - Patient symptomatic, cool, clammy, dizzy, mild SOB - Patient will go for dual chamber PPM 2. Dizziness secondary to complete HB 3. Severe symptomatic aortic stenosis status pos t TAVR Post TAVR echocardiogram - LVEF 55 to 60%, sofia l wall motion, bioprosthetic valve mean aortic gradient is 10.8 mmHg, aortic valve area 1.9 cm , no perivalvular leak, no pericardial effusion. Continue dual antiplatelet therapy and statin Discontinue metoprolol due to heart block 2. Post TAVR left bundle branch block and heart block Discontinue metoprolol Get twelve-lead EKG EP consultation Telemetry monitoring 3. CAD with prior PCI/LIONEL Continue CAD meds except beta-nona No chest pain 4. Hypertension Continue antihypertensive medications except bet a-nona Rapid repsonse called at 170 0 by electronic prepress technician for bradycardia. I responded to RR, patient was in 3rd degree AV Block/complete heart block, patient was symptomatic, cool, clammy, d alden, mild SOB. Notified Dr. High, asphalt plant laborer team activated for emergent PPM insertion. Patient tr ansferred to CCU for higher level of care and stabilization pre-procedure. Plan/Recommendations: - Dual chamber PPM today - Transfer to CCU for higher level of care - Hold AV savannah blocking agents/BB - Received ASA/plavix today - Will follow and adjust therapies as clinical c ourse dictates Consultants: cardiology Plan discussed with: patient, family Code status: full code Mathew Rivera 09/02/22 0909: Attestations Physician Attestation Agree w/findings plan: Patient seen and examined on 09/01/2022. I agree with the findings and plan as documented by Sepideh Bronson NP. at 2010 at 0909 RPT #:[id number] END OF REPORT 2022-09-01 10:56:00-00:00 [facility] ([facility]) History Physical - Adult REPORT#:[id number] REPORT STATUS: Signed DATE:09/01/22 TIME: 1056 PATIENT: ELISABETH BISHOP UNIT #: [id number] ROOM/BED: [place] [address] : 47 AGE: 76 SEX: F ATTEND: Rajinder Nair MD ADM AUTHOR: Mandy De La Rosa CIRCUIT BOARD REPAIR TECHNICIAN * ALL edits or amendments must be made on the [employer]/computer document * History of Present Illness HPI Chief complaint: None PCP: PCP: João Viramontes MD HPI: 76-year-old female with medical history of CAD, prior PCI/LIONEL, hypertension, hyperlipidemia, paroxysmal a trial fibrillation with prior ablation (not on AC,), aortic stenosis. She was admitted for elective t ranscatheter aortic valve replacement. She was observed overnight in CV IM U. She did well. No SOB, no chest pain, no palpitation, no syncope. Post TAVR echocardiogram reviewed, LVEF 55 to 60%, normal wall motio n, bioprosthetic valve mean aortic gradient is 10.8 mmHg, aortic valve area 1.9 cm , no perivalvular leak, no pericardial effusion. Pre-TAVR EKG was normal sinu s rhythm with incomplete right bundle branch block. Immediate post TAVR EKG showed left bundle branc h block EKG done today showed sinus rhythm with PVCs and nonspecific intraventricular block Later today telemetry showed transient complete heart block. Informant/historian: patient History Past medical history: Reports: Atrial fibrillation, Coronary a rtery disease, Hypertension, Prior [place]. Additional medical history: Aortic stenosis Past surgical history: Reports: PCI. Additional surgical history: afib ablation Alcohol use: Denies EtOH use Drug use: Denies recreational drugs Smoking status for patients 13 years old or olde r: Never Smoker Medication/Allergy-Vaccine Hx Medications: Home Medications: Medication Dose/Rte/Freq Days Qty Entered Last Max Daily Dose Reviewed METOPROLOL SUCC XL 50 MG PO DAILY 03/27/2108/14 (TOPROL XL) 1342 1431 Strength: 50 MG TAB.SA EZETIMIBE (ZETIA) 10 MG PO DAILY 03/27/2108/31 Strength: 10 MG TAB 1342 1431 POTASSIUM CHLORIDE ER 10 MEQ PO DAILY 03/27/21 08/31/22 (KLOR-CON 10) 1343 1431 Strength: 10 MEQ TAB.SA CYANOCOBALAMIN 500 MCG PO DAILY 03/27/21 (VITAMIN B-12) 1344 1431 Strength: 500 MCG TAB UBIDECARENONE (CO Q-10) 100 MG PO DAILY 1 08/31/22 Strength: 100 MG CAP 1345 1431 ASCORBIC ACID (VITAMIN C) 1,000 MG PO DAILY 05/0508/31/22 Strength: 1,000 MG TAB 1345 1431 MULTIVITAMIN 1 TAB PO DAILY 03/27/21 08/31/22 (MULTIPLE VITAMIN) 1345 1431 Strength: 1 TAB TAB amLODIPine/BENAZEPRIL 1 CAP PO BID 03/27/21 (LOTREL 5/20 MG) 1343 1431 Strength: 5 MG-20 MG CAP CLOPIDOGREL (PLAVIX) 75 MG PO DAILY 03/27/21 0 08/31/22 Strength: 75 MG TAB 1343 1431 FUROSEMIDE (LASIX) 20 MG PO DAILY 03/27/2108/14 Strength: 20 MG TAB 1343 1431 ATORVASTATIN (LIPITOR) 10 MG PO BEDTIME 3 08/31/22 Strength: 10 MG TAB 1729 1431 [ARI/ZIN/MAG] 1,000 MG PO DAILY 04/14/23 04/18/ 23 Strength: 1733 1431 [BLACK ELDERERRY] 50 MG PO DAILY 08/27/2208/31 Strength: 1733 1431 ASPIRIN 81 MG PO DAILY 90 90 03/31/21 08/31/22 Strength: 81 MG TAB.CHEW 1402 1431 Current Hospital Medications: Anti-Infective Agents Sig/Americo Start time Last Medication Dose Route Stop Time Status Admin Cefazolin Sodium 0 .STK-MED ONE 08/31 1412 DC 0 08/31 (KEFZOL OR ANCEF) .ROUTE 1442 Autonomic Drugs Sig/Americo Start time Last Medication Dose Route Stop Time Status Admin Atropine Sulfate 0.5 MG ASDIR PRN 08/31 1530 AC (ATROPINE SULFATE IV 09/30 1529 0.1MG/ML SYR) Blood Formation,Coagulation Sig/Americo Start time Last Medication Dose Route Stop Time Status Admin Clopidogrel Bisulfate 75 MG DAILY 09/01 0900 AC 09/01 (Plavix) PO 10/01 0859 0825 Protamine Sulfate 0 .STK-MED ONE 08/31 1634 DC (PROTAMINE SULFATE) IV Heparin Sodium 0 .STK-MED ONE 08/31 1428 DC (HEPARIN SODIUM) .ROUTE Heparin Sodium/ 2,000 ML .STK-MED ONE 08/31 141 1 DC 08/31 Sodium Chloride IV 1442 (HEPARIN 2,000 UNITS/ NS 1,000mL) Heparin Sodium/ 1,000 ML .STK-MED ONE 08/31 141 1 DC 08/31 Sodium Chloride IV 1442 (HEPARIN 1,000 UNITS/ NS 500ML) Cardiovascular Drugs Sig/Americo Start time Last Medication Dose Route Stop Time Status Admin Ezetimibe 10 MG DAILY 09/01 0900 AC 09/01 (ZETIA) PO 10/01 0859 0825 Metoprolol Succinate 50 MG DAILY 09/01 0900 DC 09/01 (TOPROL XL) PO 10/01 0859 0824 Atorvastatin Calcium 10 MG BEDTIME 08/31 2100 A C 08/31 (LIPITOR) PO 09/30 Hydralazine HCl 5 MG PACU Q10MIN PRN PRN 08/31 1515 DC (APRESOLINE) IV 09/01 0111 Labetalol HCl 5 MG PACU Q10MIN PRN PRN 08/31 15 15 DC (LABETALOL HCL) IV 09/01 0111 Lidocaine HCl 0 .STK-MED ONE 08/31 1411 DC 08/14 8 (LIDOCAINE HCL/PF) .ROUTE 1442 Lidocaine HCl 0 .STK-MED ONE 08/31 1256 DC (XYLOCAINE) .ROUTE Lidocaine HCl 2 ML PREOP ONCALL 08/31 0500 AC (LIDOCAINE HCL/PF) LOCAL 09/30 0459 Lidocaine HCl 2 ML PREOP ONCALL 08/31 0500 AC (LIDOCAINE HCL/PF) LOCAL 09/30 0459 Central Nervous System Agents Sig/Americo Start time Last Medication Dose Route Stop Time Status Admin Aspirin 81 MG DAILY 09/01 0900 AC 09/01 (ASPIRIN) PO 10/01 0859 0823 Fentanyl Citrate 50 MCG PACU Q10MIN PRN PRN 1515 DC (SUBLIMAZE) IV 09/01 0111 Fentanyl Citrate 25 MCG PACU Q10MIN PRN PRN 1515 DC (SUBLIMAZE) IV 09/01 0111 Hydromorphone HCl 0.5 MG PACU Q10MIN PRN PRN 1515 DC (DILAUDID) IV 09/01 0111 Hydromorphone HCl 0.25 MG PACU Q5MIN PRN PRN 1515 DC (DILAUDID) IV 09/01 0111 Meperidine HCl 12.5 MG PACU ONCE PRN 08/31 1515 DC (MEPERIDINE HCL/PF) IV 09/01 0111 Morphine Sulfate 2 MG PACU Q10MIN PRN PRN 08/31 1515 DC (morphine SULFATE) IV 09/01 0111 Fentanyl Citrate 0 .STK-MED ONE 08/31 1443 DC (SUBLIMAZE) .ROUTE Midazolam HCl 0 .STK-MED ONE 08/31 1441 DC (VERSED) .ROUTE Dexmedetomidine HCl 0 .STK-MED ONE 08/31 1428 D C (PRECEDEX) IV Acetaminophen 1,000 MG PREOP ONCALL 08/31 0500 CKD (TYLENOL EXTRA PO 09/30 0459 STRENGTH) Gabapentin 200 MG PREOP ONCALL 08/31 0500 CKD (NEURONTIN) PO 09/30 0459 Diagnostic Agents Sig/Americo Start time Last Medication Dose Route Stop Time Status Admin Iopamidol 0 .STK-MED ONE 08/31 1411 DC 08/31 (ISOVUE-370 100ML) IV 1442 Electrolytic, Caloric, And Saeed Sig/Americo Start time Last Medication Dose Route Stop Time Status Admin Furosemide 20 MG DAILY 09/01 899 AC 09/01 (LASIX) PO 10/01 858 0824 Potassium Chloride 10 MEQ DAILY 09/01 899 AC 0 09/01 (POTASSIUM CHLORIDE PO 10/01 10 MEQ TAB.ER) Sodium Chloride 1,000 ML .[id number] ONE 08/31 153 0 DC 08/31 (SODIUM CHLORIDE IV 09/01 0449 1736 0.9%) Sodium Chloride 500 ML ASDIR PRN 08/31 1530 AC (SODIUM CHLORIDE IV 09/30 1529 0.9%) Parenteral 1,000 ML .Q24H 08/31 1515 DC Electrolytes IV 09/01 0111 (PLASMA-LYTE A pH 7.4) Parenteral 1,000 ML .STK-MED ONE 08/31 1440 DC Electrolytes IV (PLASMA-LYTE A pH 7.4) Sodium Chloride 100 ML .STK-MED ONE 08/31 1428 DC (SODIUM CHLORIDE IV 0.9%) Lactated Ringer's 1,000 ML PREOP ONCALL 08/31 0 500 AC (LACTATED RINGERS) IV 09/30 0459 Sodium Chloride 500 ML PREOP ONCALL 08/31 0500 AC (SODIUM CHLORIDE IV 09/30 0459 0.9%) Sodium Chloride 500 ML PREOP ONCALL 08/31 0500 AC (SODIUM CHLORIDE IV 09/30 0459 0.9%) Sodium Chloride 1,000 ML PREOP ONCALL 08/31 050 0 AC (SODIUM CHLORIDE IV 09/30 0459 0.9%) Sodium Chloride 5 ML ASDIR PRN 08/27 1600 AC (SODIUM CHLORIDE) IV 09/26 1559 Sodium Chloride 10 ML ASDIR PRN 08/27 1600 AC (SODIUM CHLORIDE) IV 09/26 1559 Sodium Chloride 250 ML ASDIR PRN 08/27 1600 AC (SODIUM CHLORIDE IV 09/26 1559 0.9%) Gastrointestinal Drugs Sig/Americo Start time Last Medication Dose Route Stop Time Status Admin Ondansetron HCl 4 MG PACU ONCE PRN 08/31 1515 D C (ZOFRAN) IV 09/01 0111 Ondansetron HCl 0 .STK-MED ONE 08/31 1428 DC (ZOFRAN) .ROUTE Vitamins Sig/Americo Start time Last Medication Dose Route Stop Time Status Admin Ascorbic Acid 1,000 MG DAILY 09/01 899 AC 08/14 9 (ASCORBIC ACID) PO 10/01 0859 0824 Cyanocobalamin 500 MCG DAILY 09/01 899 AC 08/14 9 (Vitamin B-12 500 PO 10/01 0859 0823 mcg tab) Multivitamins 1 TAB DAILY 09/01 899 AC 09/01 (TAB-A-BRIDGETTE) PO 10/01 0859 0823 Allergies: Coded Allergies: dabigatran etexilate (From PRADAXA) (Severe, HIV ES 03/27/21) dronedarone (From MULTAQ) (Severe, HIVES 1) metformin (Severe, HIVES 03/27/21) Ambulatory status: Independent Review of Systems Additional notes: As stated in HPI Physical Exam VS/I O Vital Signs: Date Time Temp Pulse Resp B/P B/P Pulse O2 O2 F low FiO2 Mean Ox Delivery Rate 09/01 0821 37.6 93 16 167/74 0.0 98 Room air 09/01 0329 37.4 67 18 147/83 0.0 96 Room air 08/31 2333 36.6 60 18 146/67 93 95 Room air 08/31 2004 36.4 59 20 143/68 0.0 96 Room air 08/31 1742 Simple 6 mask 08/31 1700 36.7 24 hour I O ending at 0700: 09/01 0700 08/31 1900 Intake Total Output Total Balance Number Voids 5 Patient 71.1 kg Weight Weight Standing scale Measurement Method PATIENT WEIGHT: Weight (lb): 156 Weight (oz): 11.98 Weight (kg): 71.100 General appearance: alert, awake Neck: no JVD Cardiovascular: ectopy, normal capillary refill, regular rate rhythm Respiratory: clear to auscultation, no distress, no tenderness, aerating well Abdomen/GI: active bowel sounds, soft, n on-tender, no guarding, no rebound, no distention, no mass/organome rodrick, no pulsatile mass, no hernia, normal abdominal aorta Extremities: moves all, no edema-all extremities , normal capillary refill, normal range of motion, normal sensory, normal m otor function Musculoskeletal: full range of motion, normal in spection, no CVA tenderness Neuro/CROTCH PIECE BASTER: alert, oriented X 3, normal speech Skin: dry, intact, no gross abnormalities, sofia l color Psychiatry: no hallucinations, normal affect, no rmal judgment/insight, not homicidal Results Findings/Data: Laboratory Tests: 09/01 08/31 0440 1619 Chemistry Sodium (134 - 147 mEq/L) 139 Potassium (3.4 - 5.0 mEq/L) 3.9 Chloride (100 - 108 mEq/L) 105 Carbon Dioxide (21 - 33 mEq/l) 29 Anion Gap (0 - 20) 9 BUN (7 - 18 mg/dL) 13 Creatinine (0.6 - 1.3 mg/dL) 0.7 Glomerular Filtr Rate (70 - 80) 90.7 H Glucose (70 - 110 mg/dL) 136 H Calcium (8.0 - 10.5 mg/dL) 9.0 Magnesium (1.80 - 2.40 mg/dL) 1.93 Coagulation Activated Coag Time (74 - 137 SEC) 233 H Hematology WBC (4.5 - 11.0 x10 3/uL) 12.0 H RBC (3.54 - 5.02 x10 6/uL) 4.13 Hgb (11.0 - 15.0 g/dL) 12.9 Hct (33.0 - 45.0 %) 37.9 MCV (81.0 - 99.0 fL) 91.8 MCH (27.0 - 33.0 pg) 31.2 MCHC (33.0 - 37.0 g/dL) 34.0 RDW (11.5 - 14.5 %) 12.7 Plt Count (150 - 400 x10 3/uL) 144 L MPV (7.0 - 9.0 fL) 10.6 H Neut % (Auto) (56.0 - 77.0 %) 81.6 H Lymph % (Auto) (14.0 - 32.0 %) 5.9 L Bent % (Auto) (4.8 - 9.0 %) 10.0 H Eos % (Auto) (0.3 - 3.7 %) 1.8 Baso % (Auto) (0.0 - 2.0 %) 0.4 Neut # (Auto) (2.0 - 7.6 x10 3/uL) 9.74 H Lymph # (Auto) (1.0 - 3.8 x10 3/uL) 0.71 L Bent # (Auto) (0.1 - 0.8 x10 3/uL) 1.20 H Eos # (Auto) (0.0 - 0.2 x10 3/uL) 0.22 H Baso # (Auto) (0.0 - 0.2 x10 3/uL) 0.05 Abs Immat Gran (auto) (0.00 - 0.03 x10 3/uL) 0. 04 H Add Manual Diff NO Immature Gran % (0.0 - 2.0 %) 0.3 Nucleated RBC % (0 - 0 %) 0.0 Nucleated RBCs # (Man) (0.0 - 0.1 x10 3/uL) 0.0 0 Radiology data: Recent Impressions: RADIOLOGY - XR CHEST 1 V 09/01 1807 Report Impression - Status: SIGNED Entered: 08/31/20221842 IMPRESSION: Mild vascular congestion. Impression By: [email or web address] - John Galicia M.D. Results: labs reviewed, vital signs reviewed, EK G personally reviewed, rhythm personally rev'd Free Text PE Notes Free Text PE Notes: Right neck access, left radial access, and bilat eral groin access stable, no hematoma,no bleeding. Diagnosis, Assessment Plan Problem List/A P: 1. S/p TAVR (transcatheter aortic valve replace ment), bioprosthetic 2. Severe aortic stenosis Plan discussed with: patient, collaborating MD, consultants, nurse Free Text DxA P Notes Free Text DxA P Notes: 76-year-old female with medical history of CAD, prior PCI/LIONEL, hypertension, hyperlipidemia, paroxysmal a trial fibrillation with prior ablation (not on AC,), aortic stenosis. She was admitted for elective t ranscatheter aortic valve replacement. She was observed overnight in CV U. She did well. No SOB, no chest pain, no palpitation, no syncope. Pre-TAVR EKG was normal sinu s rhythm with incomplete right bundle branch block. Immediate post TAVR EKG showed left bundle branc h block EKG done today showed sinus rhythm with PVCs and nonspecific intraventricular block Later today telemetry showed transient complete heart block. 1. Severe symptomatic aortic stenosis status pos t TAVR Post TAVR echocardiogram - LVEF 55 to 60%, sofia l wall motion, bioprosthetic valve mean aortic gradient is 10.8 mmHg, aortic valve area 1.9 cm , no perivalvular leak, no pericardial effusion. Continue dual antiplatelet therapy and statin Discontinue metoprolol due to heart block 2. Post TAVR left bundle branch block and heart block Discontinue metoprolol Get twelve-lead EKG EP consultation Telemetry monitoring 3. CAD with prior PCI/LIONEL Continue CAD meds except beta-nona No chest pain 4. Hypertension Continue antihypertensive medications except bet a-nona Hold discharge. We will get EP consultation. at 1114 Electronically Signed by Juan M Nair MD on at 1350 RPT #:[id number] END OF REPORT 2022-09-01 09:52:00-00:00 [facility] REPORT#:[id number] REPORT STATUS: Signed DATE:09/01/22 TIME: 951 PATIENT: ELISABETH BISHOP UNIT #: [id number] ROOM/BED: [place] [address] : 47 AGE: 76 SEX: F ATTEND: Rajinder Nair MD ADM AUTHOR: He Powell VENDING MACHINE COIN COLLECTOR * ALL edits or amendments must be made on the [employer]/computer document * History of Present Illness HPI Procedure date: 08/31/22 HPI: This is a 76 year old female with a past medical history of severe symptomatic aortic stenosis that presented for elective brito scatheter aortic valve replacement. The patient had successful 26 mm Sa pien Valve implanted. History Smoking status for patients 13 years old or olde r: Never Smoker Medication/Allergy-Vaccine Hx Allergies: Coded Allergies: dabigatran etexilate (From PRADAXA) (Severe, HIV ES 03/27/21) dronedarone (From MULTAQ) (Severe, HIVES 1) metformin (Severe, HIVES 03/27/21) Review of systems ROS Cardiovascular: Denies: chest pain, ALANIZ (dyspnea on exer tion), edema, orthopnea, palpitations, parox nocturnal dyspnea, other. Psych: Denies: agitation, anxiety, auditory hallucinati on, change in mental status, confusion, delusional, depre ssion, homicidal ideation, hostile, insomnia, stress , suicidal ideation, visual hallucination, other . All systems rev neg: except as marked Objective Vital Signs Nursing documented vitals: Last Documented: Result Date Time Pulse Ox 98 09/01 820 B/P 167/74 09/01 820 B/P Mean 0.0 09/01 820 O2 Delivery Room air 09/01 820 Temp 37.6 09/01 820 Pulse 93 09/01 820 Resp 16 09/01 820 O2 Flow Rate 6 08/31 1742 Physical Exam Medications: Active Meds + DC'd Last 24 Hrs Ascorbic Acid (ASCORBIC ACID) 1,000 MG DAILY PO Aspirin (ASPIRIN) 81 MG DAILY PO Clopidogrel Bisulfate (Plavix) 75 MG DAILY PO Cyanocobalamin (Vitamin B-12 500 mcg tab) 500 MC G DAILY PO Ezetimibe (ZETIA) 10 MG DAILY PO Furosemide (LASIX) 20 MG DAILY PO Metoprolol Succinate (TOPROL XL) 50 MG DAILY PO (DC) Multivitamins (TAB-A-BRIDGETTE) 1 TAB DAILY PO Potassium Chloride (POTASSIUM CHLORIDE 10 MEQ TA B.ER) 10 MEQ DAILY PO Atorvastatin Calcium (LIPITOR) 10 MG BEDTIME PO Protamine Sulfate (PROTAMINE SULFATE) 0 .STK-MED ONE IV (DC) Atropine Sulfate (ATROPINE SULFATE 0.1MG/ML SYR) 0.5 MG ASDIR PRN IV Sodium Chloride (SODIUM CHLORIDE 0.9%) 1,000 ML .[id number] ONE IV (DC) Sodium Chloride (SODIUM CHLORIDE 0.9%) 500 ML DIR PRN IV Fentanyl Citrate (SUBLIMAZE) 50 MCG PACU Q10MIN PRN PRN IV (DC) Fentanyl Citrate (SUBLIMAZE) 25 MCG PACU Q10MIN PRN PRN IV (DC) Hydralazine HCl (APRESOLINE) 5 MG PACU Q10MIN CO N PRN IV (DC) Hydromorphone HCl (DILAUDID) 0.5 MG PACU Q10MIN PRN PRN IV (DC) Hydromorphone HCl (DILAUDID) 0.25 MG PACU Q5MIN PRN PRN IV (DC) Labetalol HCl (LABETALOL HCL) 5 MG PACU Q10MIN P RN PRN IV (DC) Meperidine HCl (MEPERIDINE HCL/PF) 12.5 MG PACU ONCE PRN IV (DC) Morphine Sulfate (morphine SULFATE) 2 MG PACU Q1 0MIN PRN PRN IV (DC) Ondansetron HCl (ZOFRAN) 4 MG PACU ONCE PRN IV ( DC) Parenteral Electrolytes (PLASMA-LYTE A pH 7.4) 1 ,000 ML .Q24H IV (DC) Fentanyl Citrate (SUBLIMAZE) 0 .STK-MED ONE .ROU TE (DC) Midazolam HCl (VERSED) 0 .STK-MED ONE .ROUTE (DC ) Parenteral Electrolytes (PLASMA-LYTE A pH 7.4) 1 ,000 ML .STK-MED ONE IV (DC) Dexmedetomidine HCl (PRECEDEX) 0 .STK-MED ONE IV (DC) Heparin Sodium (HEPARIN SODIUM) 0 .STK-MED ONE . ROUTE (DC) Ondansetron HCl (ZOFRAN) 0 .STK-MED ONE .ROUTE ( DC) Sodium Chloride (SODIUM CHLORIDE 0.9%) 100 ML .S TK-MED ONE IV (DC) Cefazolin Sodium (KEFZOL OR ANCEF) 0 .STK-MED ON E .ROUTE (DC) Heparin Sodium/Sodium Chloride (HEPARIN 2,000 UN ITS/NS 1,000mL) 2,000 ML .STK-MED ONE IV (DC) Heparin Sodium/Sodium Chloride (HEPARIN 1,000 UN ITS/NS 500ML) 1,000 ML .STK- MED ONE IV (DC) Iopamidol (ISOVUE-370 100ML) 0 .STK-MED ONE IV ( DC) Lidocaine HCl (LIDOCAINE HCL/PF) 0 .STK-MED ONE .ROUTE (DC) Lidocaine HCl (XYLOCAINE) 0 .STK-MED ONE .ROUTE (DC) Acetaminophen (TYLENOL EXTRA STRENGTH) 1,000 MG PREOP ONCALL PO (CKD) Gabapentin (NEURONTIN) 200 MG PREOP ONCALL PO ( CKD) Lactated Ringer's (LACTATED RINGERS) 1,000 ML CO EOP ONCALL IV Lidocaine HCl (LIDOCAINE HCL/PF) 2 ML PREOP ONCA LL LOCAL Lidocaine HCl (LIDOCAINE HCL/PF) 2 ML PREOP ONCA LL LOCAL Sodium Chloride (SODIUM CHLORIDE 0.9%) 500 ML CO EOP ONCALL IV Sodium Chloride (SODIUM CHLORIDE 0.9%) 500 ML CO EOP ONCALL IV Sodium Chloride (SODIUM CHLORIDE 0.9%) 1,000 ML PREOP ONCALL IV Sodium Chloride (SODIUM CHLORIDE) 5 ML ASDIR PRN IV Sodium Chloride (SODIUM CHLORIDE) 10 ML ASDIR CO N IV Sodium Chloride (SODIUM CHLORIDE 0.9%) 250 ML DIR PRN IV General appearance: alert, awake, oriented, no a cute distress HEENT: anicteric Neck: non-tender, normal thyroid Cardiovascular: BP/pulses equal bilat., normal h eart sounds, regular rate rhythm Respiratory: aerating well, clear to auscultatio n, symmetric expansion, no distress Abdomen: soft Extremities: dry, moves all Musculoskeletal: full range of motion Neuro/CROTCH PIECE BASTER: alert, oriented X 3 Skin: dry, intact Diagnosis, Assessment Plan Diagnosis, Assessment Plan Problem List/A P: 1. Severe aortic stenosis 2. S/p TAVR (transcatheter aortic valve replace ment), bioprosthetic Free Text DxA P Notes Free Text DxA P Notes: 1. Severe Symptomatic Aoric Stenosis The patient underwent successful 26 mm Geoffrey Va lve. The patient was monitored ov ernight, labs reviewed, vital signs stable, EKG did show some aberrancy, see below. Echocardiogram reviewed by Cardiology. 2. Heart Block EKG aberrancies noted on telemetry. Possible 2nd degree type II AV block. EP has been consulte for evaluation. Electronically Signed by He Powell NP on 09/01 at 1142 RPT #:[id number] END OF REPORT 2022-09-01 09:26:00-00:00 [id number] [place] [address] PATIENT NAME: ELISABETH BISHOP ADMIT DATE: 3 ACCOUNT NO: [id number] [place] [facility] [place] AGE: 76 REPORT TYPE: eECHOCARDIOGRAM REPORT SEX: F ADMITTING PHYSICIAN:João Viramontes MD ATTENDING PHYSICIAN:Juan M Nair MD *[place] [address] Transthoracic Echocardiogram Patient: Elisabeth Bishop Study Date: 09/01/2022 BP: 153 / 69 Location: [facility] URN: [id number] 137 : 1945 Age: 76 Height: 65 in / 165.1 cm Gender: F Weight: 159 .7 lb / 72.6 kg BMI/BSA: 26.6 kg/m 2 / 1.8 m 2 *Ordering Physician: * Rock Quinonez *Interpreting Physician: * Juan M Nair MD *Lung Puller: Noni Calderon Indications: POST TAVR. Study data: Transthoracic echocardiogram. Proced ure: Transthoracic echocardiography was performed. Image quality wa s adequate. Complete 2D, complete spectral Doppler, and color Doppler . Location: Bedside. Patient status: Inpatient. Patient room number: 3353. Study status: Routine. Findings Left ventricle: The cavity size is normal. Wall thickness is mildly increased. Systolic function is normal. The ramesh mated ejection fraction is 55-60%. Wall motion is normal; there are no r egional wall motion abnormalities. Left ventricular diastolic functi on parameters are normal. Right ventricle: The cavity size is normal. Syst olic function is PATIENT NAME: ELISABETH BISHOP 2137 normal. Left atrium: The atrium is moderately dilated. Right atrium: The atrium is normal in size. Aorta: Aortic root: The aortic root is normal in size. Aortic valve: There is a bioprosthetic valve. Post TAVR: There is a Jama GEOFFREY 3, 26 mm tr anscatheter valve that is well seated in the aortic valve position. The LVOT diameter is 2 cm. The peak aortic gradient is 22.6 mmHg. The mean aortic gradient is 10.8 mmHg. The LVOT VTI is 32.7 cm. The AV VTI is 54. 6 cm. The aortic valve area is 1.9 cm 2. The peak jet velocity is 2.4 m /sec. There is no perivalvular leak noted. There is no evidence of stenosis. There is no regurgitation. Mitral valve: The valve is structurally normal. There is no evidence of stenosis. There is mild regurgitatio n. Tricuspid valve: The valve is structurally sofia l. There is mild regurgitation. Pulmonic valve: The valve is structurally normal . There is no regurgitation. Pericardium: There is no pericardial effusion. Pulmonary arteries: The main pulmonary artery is normal-sized. Systemic veins: Inferior vena cava: The vessel is normal in size . Measurements Left ventricle Value Ref CECE, LAX 4.1 cm 3.8 - 5.2 ESD, LAX 2.9 cm 2.2 - 3.5 ESD/bsa, LAX 1.6 cm/m 2 1.3 - 2.1 FS, LAX 30 % 27 - 45 ESD/bsa major ax, 3.8 cm/m 2 -------- A4C CECE/bsa minor ax, 3.8 cm/m 2 -------- A4C CECE major ax, A2C 8.0 cm -------- CECE/bsa major ax, 4.5 cm/m 2 -------- A2C PW, ED 1.2 cm 0.6 - 0.9 IVS/PW, ED 0.98 -------- EF 57 % 54 - 74 E', lat bradley, TDI 6.0 cm/sec >=10.0 E/e', lat bradley, TDI 19 -------- E', med bradley, TDI 4.1 cm/sec >=7.0 E/e', med bradley, TDI 27 -------- E', avg, TDI 5.1 cm/sec -------- E/e', avg, TDI 22 <=14 LVOT Value Ref PATIENT NAME: ELISABETH BISHOP 2137 Diam, S 2.03 cm -------- Area 3.2 cm 2 -------- Peak tim, S 1.4 m/sec -------- Mean tim, S 1.02 m/sec -------- VTI, S 32.7 cm -------- Peak grad, S 8 mm Hg -------- Mean grad, S 5 mm Hg -------- SV 105 ml -------- Qs 8.43 L/min -------- Qs/bsa 4.7 L/(min-m 2) -------- SV/bsa 59 ml/m 2 -------- Ventricular septum Value Ref IVS, ED 1.2 cm 0.6 - 0.9 Right ventricle Value Ref CECE, LAX 2.8 cm -------- Pressure, S 37 mm Hg -------- RVOT Value Ref Peak v, S 1.02 m/sec -------- Peak grad, S 4 mm Hg -------- Left atrium Value Ref Vol/bsa, ES, 1-p 38 ml/m 2 11 - 40 A4C Vol, ES, 2-p 77 ml -------- Vol/bsa, ES, 2-p 43 ml/m 2 16 - 34 Vol/bsa, ES, A/L 40 ml/m 2 16 - 34 AP dim, ES MM 3.3 cm 2.7 - 3.8 LA/Ao root ratio, 1.07 -------- MM Aortic valve Value Ref Leaflet sep, MM 1.59 cm -------- Peak v, S 2.38 m/sec -------- Mean v, S 1.49 m/sec -------- VTI, S 54.6 cm -------- Mean grad, S 10.8 mm Hg -------- Peak grad, S 22.6 mm Hg -------- LVOT/AV, VTI ratio 0.6 -------- KEELY, VTI 1.93 cm 2 -------- LVOT/AV, Vpeak 0.59 -------- ratio KEELY, Vmax 1.89 cm 2 -------- Mitral valve Value Ref E-septal 0.7 cm -------- separation E-F slope 0.05 m/sec -------- Peak E 0.05 m/sec -------- Peak A 1.35 m/sec -------- PATIENT NAME: ELISABETH BISHOP [id number] Decel time 205 ms -------- PHT 53 ms -------- Peak E/A ratio 0.82 -------- MVA, PHT 4.2 cm 2 -------- Pulmonic valve Value Ref CO v, ED 0.8 m/sec -------- Tricuspid valve Value Ref TR peak v 2.61 m/sec <=2.8 Peak RV-RA grad, S 27 mm Hg -------- Aortic root Value Ref Root diam, ED MM 3.05 cm -------- Pulmonary artery Value Ref Pressure, S 33.0 mm Hg -------- Systemic veins Value Ref Estimated CVP 10 mm Hg -------- Conclusions Summary: 1. Left ventricle: The cavity size is normal. Wa ll thickness is mildly increased. Systolic function is normal. The est imated ejection fraction is 55-60%. Wall motion is normal; ther e are no regional wall motion abnormalities. Left ventricular diastoli c function parameters are normal. 2. Right ventricle: The RV pressure during systo le by Doppler is 37 mm Hg. 3. Left atrium: The atrium is moderately dilated . 4. Aortic valve: There is a bioprosthetic valve. The mean aortic gradient is 10.8 mmHg. The aortic valve area is 1.9 cm 2. The peak jet velocity is 2.4 m/sec. There is no perivalv ular leak noted. 5. Mitral valve: There is mild regurgitation. 6. Tricuspid valve: There is mild regurgitation. 7. Pericardium, extracardiac: There is no perica rdial effusion. Prepared and electronically signed by Juan M Nair MD 09/01/2022 09:26 Electronically Signed by Juan M Nair MD on 0 09/01/22 at 0926 PATIENT NAME: ELISABETH BISHOP 2137 2022-09-01 09:23:00-00:00 [id number] [place] [address] PATIENT NAME: ELISABETH BSIHOP ADMIT DATE: 3 ACCOUNT NO: [id number] ROOM NO: [facility] [place] AGE: 76 REPORT TYPE: eECHOCARDIOGRAM REPORT SEX: F ADMITTING PHYSICIAN:João Viramontes MD ATTENDING PHYSICIAN:Juan M Nair MD *[place] [address] Limited Transthoracic Echocardiogram Patient: Elisabeth Bishop Study Date: 08/31/2022 BP: 121 / 72 Location: [facility] URN: [id number] 137 : 1945 Age: 76 Height: 65 in / 165.1 cm Gender: F Weight: 159 .7 lb / 72.6 kg BMI/BSA: 26.6 kg/m 2 / 1.8 m 2 *Ordering Physician: * João Viramontes *Interpreting Physician: * Juan M Nair MD *Lung Puller: * Victoria Mason Indications: TAVR. Study data: Transthoracic echocardiogram, limite d study. Procedure: Transthoracic echocardiography was performed. Im age quality was adequate. Limited 2D and limited spectral Dopple r. Location: [facility]. Study status: Routine. Rhythm: Normal sinus rhythm. Findings Left ventricle: The cavity size is normal. Wall thickness is mildly increased. Systolic function is normal. The ramesh mated ejection fraction is 55-60%. Wall motion is normal; there are no r egional wall motion abnormalities. Features are consistent with a ps eudonormal left ventricular filling pattern, with concomitant ab normal relaxation and increased filling pressure (grade 2 diastolic dy sfunction). PATIENT NAME: ELISABETH BISHOP 2137 Right ventricle: The cavity size is normal. Syst olic function is normal. Left atrium: The atrium is dilated. Right atrium: The atrium is normal in size. Aorta: Aortic root: The aortic root is normal in size. Aortic valve: The valve is trileaflet. Pre TAVR: The LVOT diameter is 2 cm. The peak gr adient is 66.5 mmHg. The mean gradient is 40.3 mmHg. The LVOT VTI is 33.5 cm. The AV VTI is 98.5 cm. The aortic valve area is 0.9 cm 2. The peak jet velocity is 4.1 m/sec. There is mild to moderate aortic regurgit ation. There is severe aortic stenosis. Post TAVR: There is a Jama GEOFFREY 3, 26 mm tr anscatheter valve that is well seated in the aortic valve position. The LVOT diameter is 25 cm. The peak aortic gradient is 10.7 mmHg. The mean aortic gradient is 6.3 mmHg. The LVOT VTI is 18.7 cm. The AV VTI is 40. 4 cm. The aortic valve area is 2.3 cm 2. The peak jet velocity is 1.6 m /sec. There is no perivalular leak. Mitral valve: The annulus is mildly calcified. T here is no evidence of stenosis. There is mild regurgitation. Tricuspid valve: The valve is structurally sofia l. There is physiologic regurgitation. Pulmonic valve: The valve is structurally normal . There is no regurgitation. Pericardium: There is no pericardial effusion. Pulmonary arteries: The main pulmonary artery is normal-sized. Systemic veins: Inferior vena cava: The vessel is normal in size . Measurements Left ventricle Value Ref CECE, LAX 4.4 cm 3.8 - 5.2 ESD, LAX 2.4 cm 2.2 - 3.5 ESD/bsa, LAX 1.3 cm/m 2 1.3 - 2.1 FS, LAX 46 % 27 - 45 ESD/bsa major ax, 3.7 cm/m 2 ------- A4C CECE/bsa minor ax, 3.7 cm/m 2 ------- A4C CECE major ax, A2C 7.7 cm ------- ESD major ax, A2C 6.4 cm ------- CECE/bsa major ax, 4.3 cm/m 2 ------- A2C ESD/bsa major ax, 3.6 cm/m 2 ------- A2C PW, ED 1.0 cm 0.6 - 0.9 IVS/PW, ED 1.27 ------- EF 77 % 54 - 74 PATIENT NAME: ELISABETH BISHOP 2137 E', lat bradley, TDI 5.3 cm/sec >=10.0 E/e', lat bradley, TDI 20 ------- E', med bradley, TDI 2.7 cm/sec >=7.0 E/e', med bradley, TDI 39 ------- E', avg, TDI 4.0 cm/sec ------- E/e', avg, TDI 26 <=14 LVOT Value Ref Diam, S 1.98 cm ------- Area 3.1 cm 2 ------- Peak tim, S 0.75 m/sec ------- Mean tim, S 0.59 m/sec ------- VTI, S 18.7 cm ------- Peak grad, S 2 mm Hg ------- Mean grad, S 2 mm Hg ------- SV 93 ml ------- Qs 6.5 L/min ------- Qs/bsa 3.6 L/(min-m 2) ------- SV/bsa 52 ml/m 2 ------- Ventricular septum Value Ref IVS, ED 1.3 cm 0.6 - 0.9 Right ventricle Value Ref CECE, LAX 2.0 cm ------- Left atrium Value Ref Vol/bsa, ES, 1-p 40 ml/m 2 11 - 40 A4C Vol, ES, 2-p 74 ml ------- Vol/bsa, ES, 2-p 41 ml/m 2 16 - 34 Vol/bsa, ES, A/L 42 ml/m 2 16 - 34 AP dim, ES MM 2.8 cm 2.7 - 3.8 LA/Ao root ratio, 1.03 ------- MM Right atrium Value Ref Area, ES 13 cm 2 10 - 18 SI dim, ES, A4C 5.2 cm 3.4 - 5.3 SI dim/bsa, ES, 2.9 cm/m 2 1.9 - A4C 3.1 Vol, ES, A/L 27 ml ------- Vol, ES, 1-p A4C 25 ml ------- Vol/bsa, ES, 1-p 14 ml/m 2 9 - 33 A4C Aortic valve Value Ref Leaflet sep, MM 1.00 cm ------- Peak v, S 1.64 m/sec ------- Mean v, S 1.22 m/sec ------- VTI, S 40.5 cm ------- PATIENT NAME: ELISABETH BISHOP 2137 Mean grad, S 6.4 mm Hg ------- Peak grad, S 10.8 mm Hg ------- LVOT/AV, VTI ratio 0.46 ------- KEELY, VTI 0.98 cm 2 ------- LVOT/AV, Vpeak 0.46 ------- ratio KEELY, Vmax 0.94 cm 2 ------- AR peak v 4.86 m/sec ------- AR decel 325 cm/s 2 ------- AR decel time 1496 ms ------- AR PHT 434 ms ------- AR peak grad 94 mm Hg ------- Mitral valve Value Ref Peak E 1.04 m/sec ------- Peak A 1.04 m/sec ------- Mean v, D 0.75 m/sec ------- VTI leaflet coapt 36.3 cm ------- Decel time 245 ms ------- PHT 67 ms ------- Mean grad, D 2.4 mm Hg ------- Peak grad, D 4.3 mm Hg ------- Peak E/A ratio 1 ------- MVA, PHT 3.3 cm 2 ------- MR peak v 2.36 m/sec ------- Pulmonic valve Value Ref CO v, ED 0.7 m/sec ------- Aortic root Value Ref Root diam, ED MM 2.76 cm ------- Conclusions Summary: 1. Left ventricle: The cavity size is normal. Wa ll thickness is mildly increased. Systolic function is normal. The est imated ejection fraction is 55-60%. Wall motion is normal; ther e are no regional wall motion abnormalities. Features are consistent w ith a pseudonormal left ventricular filling pattern, with concomit ant abnormal relaxation and increased filling pressure (grad e 2 diastolic dysfunction). 2. Left atrium: The atrium is dilated. The end-s ystolic volume index (A-L) is 42 ml/m 2. 3. Aortic valve: There is a Jama GEOFFREY 3, 26 mm transcatheter valve that is well seated in the aortic valve positio n. The LVOT diameter is 25 cm. The peak aortic gradient is 10.7 mmHg . The mean aortic gradient is 6.3 mmHg. The LVOT VTI is 18.7 cm. The aortic valve area is 2.3 cm 2. The peak jet velocity is 1.6 m/sec . There is no perivalular leak. 4. Mitral valve: The annulus is mildly calcified . There is mild regurgitation. PATIENT NAME: ELISABETH BISHOP 2137 Prepared and electronically signed by Juan M Nair MD 09/01/2022 09:23 Electronically Signed by Juan M Nair MD on 0 09/01/22 at 0923 PATIENT NAME: ELISABETH BISHOP 7 2022-09-01 07:04:00-00:00 [id number] [place] [address] PATIENT NAME: ELISABETH BISHOP ADMIT DATE: 3 ACCOUNT NO: [id number] ROOM NO: 3353 AGE: 76 REPORT TYPE: eELECTROCARDIOGRAM REPORT SEX: F ADMITTING PHYSICIAN:João Viramontes MD ATTENDING PHYSICIAN:Juan M Nair MD Order: [id number] Test Reason : POST PCI Test Date/Time Stamp: TueSep 01 2022 07:04:45 Blood Pressure : / mmHG Vent. Rate : 077 BPM Atrial Rate : 077 BPM P-R Int : 206 ms QRS Dur : 154 ms QT Int : 446 ms P-R-T Axes : 024 -44 074 degree s QTc Int : 504 ms Sinus rhythm with fusion complexes and PVC's Left axis deviation Nonspecific intraventricular block Abnormal ECG Confirmed by REBECA LY MD ([id number]) on 09/02/19 7:43:40 AM Referred By: No Physician Confirmed by:REBECA LIZARRAGA MD at 0743 PATIENT NAME: ELISABETH BISHOP 7 2022-08-31 22:21:00-00:00 [facility] ([facility]) Cardiothoracic Surgery Consult REPORT#:[id number] REPORT STATUS: Signed DATE:08/31/22 TIME: 2220 PATIENT: ELISABETH BISHOP UNIT #: [id number] ROOM/BED: 3301- : 47 AGE: 76 SEX: F ATTEND: Rajinder Nair MD ADM AUTHOR: Annie Marshall * ALL edits or amendments must be made on the el [employer]/computer document * Ana Chan 08/31/222220: History of Present Illness HPI Chief complaint: Severe aortic stenosis Admitted for TAVR PCP: PCP: João Viramontes MD HPI: This is a 76-year-old female with a past medical history of coronary artery disease, status post PCI, hy pertension, hyperlipidemia, carotid stenosis, aortic stenosis who presented to our clinic for evaluation for aortic valve stenosis. The patient is followed by Dr. Viramontes in the outpatient setting. Her last left heart catheterization with s taged PCI to the LAD at [facility] in March 2021. She was deemed high risk for s urgical AVR, the case was presented in the structural conference and natye nt admitted to the hospital today for transcatheter aortic valve implantatio n. History Smoking status for patients 13 years old or olde r: Never Smoker Allergies: Coded Allergies: dabigatran etexilate (From PRADAXA) (Severe, HIV ES 03/27/21) dronedarone (From MULTAQ) (Severe, HIVES 1) metformin (Severe, HIVES 03/27/21) Review of Systems Review of Systems ROS comments: Constitutional: Negative for fever, chills, weig ht loss Skin: Negative for rash, negative for swelling n egative for any laceration HEENT: Denies hearing loss denies, any ear ringi ng denies any earache, throat pain Respiratory: Denies dyspnea on exertion denies hemoptysis , cough, shortness of breath Cardiac: Denies chest pain, denies palpitations denies orthopnea GI: Denies constipation denies diarrhea : Denies hematuria denies dysuria denies flank pain Musculoskeletal: Denies any joint pain denies an y joint swelling denies any myalgia Hematologic: Denies any easy bruising, denies an y bleeding Endocrine: denies any night sweats, denies polyu flex polydipsia Neurologic: Denies any lightheaded denies any he adache denies any confusion denies any dizziness Objective Physical Exam VS/I O: Last Documented: Result Date Time Pulse Ox 96 09/01 2003 B/P 143/68 09/01 2003 B/P Mean 0.0 09/01 2003 O2 Delivery Room air 09/01 2003 Temp 97.5 09/01 2003 Pulse 59 09/01 2003 Resp 20 09/01 2003 O2 Flow Rate 6 08/31 1742 PATIENT WEIGHT: Weight (lb): 160 Weight (oz): 0.89 Weight (kg): 72.600 Free Text Obj Notes Free Text Obj Notes: General: well nourished, well groomed, no acute distress. HEENT: conjunctiva clear, ex traocular movement intact, PERRLA, sclera anicteric. normal dentition, gums, normal, oral mucosa with out pallor or cyanosis. Neck: no, JVD, trachea midline, no, lymphadenopa thy, neck supple, normal ROM. Respiratory: Clear to auscultation, no distress. Cardiovascular: Normal heart sounds, systolic mu rmur Abdomen: Soft, non tender. No rebound. No guardi ng Extremities: dry, moves all. Musculoskeletal: Full range of motion, no CVA te nderness, no muscle spasm Skin: warm, dry, no, lesions, rash. Neurologic: Alert and oriented x3. Psychiatric: affect and demeanor normal, normal speech, appropriate mood and affect. Diagnosis, Assessment Plan Free Text A P: This is a 76-year-old female with a past medical history of coronary artery disease, status post PCI, hy pertension, hyperlipidemia, carotid stenosis, aortic stenosis who presented to our clinic for evaluation for aortic valve stenosis. The patient is followed by Dr. Viramontes in the outpatient setting. Her last left heart catheterization with s taged PCI to the LAD at [facility] in March 2021. She was deemed high risk for s urgical AVR, the case was presented in the structural conference and patie nt admitted to the hospital today for transcatheter aortic valve implantatio n. PLAN Postop care Monitor neurological status Monitor for bradycardia/heart block Echocardiogram in Moises Doty 09/07/22 1546: Attestations Physician Attestation Agree w/findings plan: I have seen and examined Ms Bishop. I agree with the findings and plan as documented by RENEE Garner. Briefly, 76-year-old female with severe aortic stenosis. She was worked up and presented in the structural heart conference and found to be suitable candidate for TAVR. She is being admitted to the [facility] today for the procedure. I had a long discussion with the patient, explained to her the procedure, risk involved, benefit, alternatives, STS risk score, and complications. at 0940 at 1548 [facility] #:[id number] END OF REPORT 2022-08-31 19:32:00-00:00 [facility] ([facility]) DT Operative Note REPORT#:[id number] REPORT STATUS: Signed DATE:08/31/22 TIME: 1931 PATIENT: ELISABETH BISHOP UNIT #: [id number] ROOM/BED: [place] [address] : 47 AGE: 76 SEX: F ATTEND: Rajinder Nair MD ADM AUTHOR: Moises Kimbrough MD * ALL edits or amendments must be made on the [employer]/computer document * Operative Report Operative Note Note: Preoperative diagnosis: Severe symptomatic aorti c stenosis Postoperative diagnosis: Severe symptomatic aort ic stenosis Procedure: 1.Transcatheter aortic valve replacem ent (TAVR) utilizing # 26 Jama's Geoffrey S3 Ultra pe ricardial valve via transfemoral approach with MAC. 2. Ascending aortogram 3. Placement of temporary pacing wire 4. Manta closure of right common femoral artery 5. 6-Sri Lankan Angioseal closure of the left femor al artery Surgeon: Niki Kimbrough MD [employer]: MD João Soares MD Anaesthesia: MAC Estimated blood loss: 20 cc Indication: Ms Bishop is a pleasant 76-year-old, male with severe symptomatic aortic stenosis. She was investigated an d was found to be a suitable candidate for TAVR. After do preop cou nseling he was brought to the hybrid room today for TAVR Findings: 1. Severe calcification of aortic valv e 2. The delivery system was passed without diffi culty into the left ventricular outflow tract for deployment. 3. A 26 mm Geoffrey S3 Ultra valve was required 4. Post replacement TTE revealed no paravalvula r leak 5. Patient had good Doppler signals in both low er extremities following the procedure. Procedure in detail: Further details will be dic tated by the billiard table repairer. The patient was brought into the [facility] room. A timeout procedure was performed [facility] confirmed the patient's name medical record number and the procedure to be performed. The patient w as placed supine on the operating table. The chest, abdomen, and groins were prepped and draped in standard surgical fashion. 1% lidocaine was used to anesthetize th e area over the right femoral artery, and left femoral artery and vein. After placement of appropriate sheath patient was heparinized, to maint ain and a ACT more than 250 second. An aortic root shot was performed, noting t he optimal angle for deployment of the valve. This confirmed the position already deter mined by CT angiogram 3D reconstruction. Subsequently, the 26 mm Jama Geoffrey S3 Ultra transcatheter valve was placed into the sheath in the right fe moral artery and brought up through the aortic valve and placed in the correct position. This was confirmed by the heart valve team. Subsequently the rapid ventricular pacing was performed and the valve was deployed in the aort ic annulus appropriately. The Cordis and sheath were pulled back. Postplacemen t transthoracic echo revealed good placement of the valve with no aortic insuf ficiency. The mean gradient was minimal. Subsequently, the sheaths were farhad regi, the left common femoral artery was closed with a Manta device and the ri ght common femoral artery was closed using Mynx device. The right common femor al vein was closed using Vascade device. Sterile dressings were applied. I was present as co-surgeon in conjuncti on with Dr Eddy and Dr. Viramontes. The patient tolerated the proced ure well and was taken to the coronary care unit in stable condition. Sponge, needle and instrument count were correct. at 1029 [facility] #:[id number] END OF REPORT 2022-08-31 17:32:00-00:00 [id number] [address] PATIENT NAME: ELISABETH BISHOP ADMIT DATE: 3 ACCOUNT NO: [id number] ROOM NO: [facility] AGE: 76 REPORT TYPE: eELECTROCARDIOGRAM REPORT SEX: F ADMITTING PHYSICIAN:João Viramontes MD ATTENDING PHYSICIAN:Juan M Nair MD Order: [id number] Test Reason : S/P TAVR Test Date/Time Stamp: TueAug 31 2022 17:32:43 Blood Pressure : / mmHG Vent. Rate : 062 BPM Atrial Rate : 062 BPM P-R Int : 218 ms QRS Dur : 154 ms QT Int : 514 ms P-R-T Axes : 034 -44 101 degree s QTc Int : 521 ms Sinus rhythm with 1st degree AV block Left axis deviation Left bundle branch block Abnormal ECG Confirmed by REBECA LY MD ([id number]) on 09/01/19 6:45:31 PM Referred By: No Physician Confirmed by:REBECA LIZARRAGA MD at 1845 PATIENT NAME: ELISABETH BISHOP 2137 2022-08-27 15:01:00-00:00 [id number] [place] [address] PATIENT NAME: ELISABETH BISHOP ADMIT DATE: ACCOUNT NO: [id number] ROOM NO: AGE: 76 REPORT TYPE: eELECTROCARDIOGRAM REPORT SEX: F ADMITTING PHYSICIAN:João Viramontes MD ATTENDING PHYSICIAN:João Viramontes MD Order: [id number] Test Reason : PRE OP Test Date/Time Stamp: TueAug 27 2022 15:01:07 Blood Pressure : / mmHG Vent. Rate : 067 BPM Atrial Rate : 067 BPM P-R Int : 176 ms QRS Dur : 094 ms QT Int : 408 ms P-R-T Axes : 052 -11 064 degree s QTc Int : 431 ms Normal sinus rhythm Incomplete right bundle branch block Septal infarct (cited on or before 31-MAR-2021) Abnormal ECG PRE_OP Confirmed by REBECA LY MD ([id number]) on 08/28/19 5:42:43 PM Referred By: João Viramontes Confirmed by:REBECA MENDES MD at 174 PATIENT NAME: ELISABETH BISHOP 2137 2022-05-24 08:38:00-00:00 [id number] [place] [address] PATIENT NAME: ELISABETH BISHOP ADMIT DATE: 3 ACCOUNT NO: [id number] ROOM NO: AGE: 76 REPORT TYPE: PULMONARY FUNCTION REPORT SEX: F ADMITTING PHYSICIAN: ATTENDING PHYSICIAN:He Powell NP STUDY DATE: FULL PULMONARY FUNCTION TEST INTERPRETATION SPIROMETRY: FVC is 84% predicted. FEV1 is 90% of predicted. Ratio is 83. No response to bronchodilator. TLC is 92 and diffus ion capacity 92%. FULL PULMONARY FUNCTION TEST: Within normal limi ts. Dictated By: Kathy Dockery MD Date Dictated: 05/24/2022 08:38:05 Date Transcribed: 05/24/2022 09:15:21 /OLIVIA/HEM Receipt ID: [id number] Authenticated by KATHY DOCKERY MD On 06/11/2022 05:04:44 PM Electronically Signed by Kathy Dockery MD on at 0504 PATIENT NAME: ELISABETH BISHOP 8213 2021-03-31 16:45:00-00:00 [id number] [place] [address] PATIENT NAME: ELISABETH BISHOP ADMIT DATE: ACCOUNT NO: [id number] ROOM NO: AGE: 75 REPORT TYPE: OPERATIVE REPORT SEX: F ADMITTING PHYSICIAN: ATTENDING PHYSICIAN:João Viramontes MD OPERATION DATE: 03/31/2021 PREOPERATIVE DIAGNOSIS: POSTOPERATIVE DIAGNOSIS: PROCEDURES PERFORMED: 1. Intravascular ultrasound of left anterior lionel cending. 2. CSI atherectomy of the proximal and mid left anterior descending. 3. Percutaneous coronary intervention of proxima l and mid left anterior descending using a 3.0 x 48 mm Synergy drug-elut ing stent, postdilated to. 4.0 x 8 mm using 4.0 NC balloon. SURGEON: Ling Viramontes MD BOOKKEEPING TEACHER: ANESTHESIA: ACCESS: Right radial artery, 6-Sri Lankan closed wit h TR band. COMPLICATIONS: None. INDICATIONS: Known severe coronary artery diseas e. Total sedation time was 75 minutes. DESCRIPTION OF PROCEDURE: After risks, benefits, and alternatives were explained, the patient agreed to proceed and sig jose informed consent. The patient was brought into cardiac catheterization laboratory and prepped and draped in usual sterile fashion. An access to ri [facility] radial artery using pediatric micropuncture kit and then stacey deepthi 6-Sri Lankan slender sheath. Then took a 6-Sri Lankan XB3.5 guide into the aortic r oot and engaged the left main and took standard views and then I took a long Ru nthrough wire into the LAD. Then, with one over the wire balloon, I exchanged the Runth rough into the Viper wire and then did a CSI atherectomy of the proximal and m id LAD and then advanced the IVUS catheter for proper sizing and then took a 3.0 x 48 mm drug-eluting stent with the help of the GuideLi ner and deployed it across the area of stenosis with good expansion. I then took a 4.0 x 8 mm NC ball oon to the mid and proximal part of the stent and postdilated it. Then IVUS showed good apposition of the stent and good expansion. Then, I removed the wi re and final angiogram was satisfactory. I then removed the guide, removed the sheath, and placed TR band with good hemostasis. PATIENT NAME: ELISABETH BISHOP 2201 CONCLUSION: Successful IVUS-guided CSI a therectomy of the proximal and mid LAD followed by PCI and postdilated as outlined yahir de leon. PLAN: Aspirin, Plavix, high-dose statin. Follow up with me in the office in 2 weeks. Dictated By: João Viramontes MD WT: OP:ANTIONETTE/KUMAR/DESTINY Conf#: [id number]/DID#: [id number] Authenticated by João Viramontes MD On 04/01/2021 08:39:59 AM Electronically Signed by João Viramontes MD on at 0839 PATIENT NAME: ELISABETH BISHOP 2201 2021-03-31 14:03:00-00:00 [id number] [place] [id number] PATIENT NAME: ELISABETH BISHOP ADMIT DATE: 1 ACCOUNT NO: [id number] ROOM NO: AGE: 75 REPORT TYPE: eELECTROCARDIOGRAM REPORT SEX: F ADMITTING PHYSICIAN: ATTENDING PHYSICIAN:João Viramontes MD Order: [id number] Test Reason : POST PCI Test Date/Time Stamp: TueMar 31 2021 14:03:25 Blood Pressure : / mmHG Vent. Rate : 077 BPM Atrial Rate : 077 BPM P-R Int : 192 ms QRS Dur : 082 ms QT Int : 402 ms P-R-T Axes : 047 -33 077 degree s QTc Int : 454 ms Normal sinus rhythm Left axis deviation Septal infarct , age undetermined Abnormal ECG When compared with ECG of 27-MAR-2021 12:52, Significant changes have occurred Confirmed by DADA CARPENTER ([id number]) on 04/01/20 12:46:07 PM Referred By: João Viramontes Confirmed by:DADA CARPENTER at 1246 PATIENT NAME: ELISABETH BISHOP [id number] 2021-03-27 12:52:00-00:00 [id number] [place] [address] PATIENT NAME: ELISABETH BISHOP ADMIT DATE: ACCOUNT NO: [id number] ROOM NO: AGE: 75 REPORT TYPE: eELECTROCARDIOGRAM REPORT SEX: F ADMITTING PHYSICIAN: ATTENDING PHYSICIAN:João Viramontes MD Order: [id number] Test Reason : PRE OP Test Date/Time Stamp: TueMar 27 2021 12:52:56 Blood Pressure : / mmHG Vent. Rate : 064 BPM Atrial Rate : 064 BPM P-R Int : 170 ms QRS Dur : 086 ms QT Int : 416 ms P-R-T Axes : 055 -20 060 degree s QTc Int : 429 ms Normal sinus rhythm Normal ECG Confirmed by MD GRAY OMAR ([id number]) on 021 2:08:26 PM Referred By: João Viramontes Confirmed by:MICH FERNÁNDEZ MD Electronically Signed by Mich Gray MD on 05/05 at 1408 PATIENT NAME: ELISABETH BISHOP 2202"
[2022-12-01 13:06] LABS: Absolute Lymphocytes (CBC) 1.6 K/uL (0.7-4.9); Hematocrit 42.1 % (36.0-45.0); Lymphocytes % 23.8 % (15.3-44.8); MCV 90.5 fL (80-100); MPV 7.5 fL (7.6-11.3); RBC Red Blood Cell Count 4.65 M/uL (3.86-4.86)
[2022-12-01 13:28] LABS: Albumin 4.2 g/dL (3.4-5.0); Bilirubin Direct 0.2 mg/dL (0-0.2); Bilirubin Indirect, Calculated 0.4 mg/dL (0.2-0.8); Bilirubin Total 0.6 mg/dL (0.2-1.0); Magnesium 2.6 mg/dL (1.6-2.4); Protein, Total 8.3 g/dL (6.4-8.2); Troponin High Sensitivity 8.2 pg/mL (<58.9)
--- NOTE | 2022-12-01 13:45 | RAD REPORT ---
EXAM DESCRIPTION: Cedric Single View12/01/2022 1:23 pm CLINICAL HISTORY: Shortness of breath COMPARISON: 2020 FINDINGS: The lungs appear clear of acute infiltrate. The heart is normal size Pacemaker leads in place IMPRESSION: No acute abnormalities displayed
--- NOTE | 2022-12-01 13:53 | ER ---
Nurse's Notes [facility] Name: Zonia Nevarez Age: 77 yrs Sex: Female : 1945 Arrival Date: 12/01/2022 Time: 11:26 Bed 20 Private MD: Diagnosis: Dyspnea Presentation: 12/01 11:37 Chief complaint: Patient states: SOB and bilateral ankle swelling off and on x 1 week, ph also reports feeling dizzy and shaky, had a pacemaker and artificial valve placed in August 2022. Coronavirus screen: Vaccine status: Patient reports being unvaccinated. Ebola Screen: No symptoms or risks identified at this time. Initial Sepsis Screen: Does the patient meet any 2 criteria? No. Patient's initial sepsis screen is negative. Does the patient have a suspected source of infection? No. Patient's initial sepsis screen is negative. Risk Assessment: Do you want to hurt yourself or someone else? Patient reports no desire to harm self or others. Onset of symptoms was December 01, 2022. 11:37 Method Of Arrival: Ambulatory 11:37 Acuity: GIOVANNI 2 Triage Assessment: 12:40 General: Appears in no apparent distress. comfortable, Behavior is calm, cooperative. cm10 Neuro: Level of Consciousness is awake, alert, obeys commands, Oriented to person, place, time, situation. Respiratory: Airway is patent Respiratory effort is even, unlabored, Respiratory pattern is regular, symmetrical, Onset: The symptoms/episode began/occurred gradually, the patient has mild shortness of breath. Historical: - Allergies: 11:38 metformin; ph 11:38 Multaq; ph 11:38 Pradaxa; ph - PMHx: 11:38 Atrial Fib; High Cholesterol; Hypertension; ph - PSHx: 11:38 pacemaker; partial hysterectomy; valve replacement; cardiac stents; ph - Immunization history:: Adult Immunizations unknown. - Social history:: Smoking status: Patient denies any tobacco usage or history of. - Family history:: not pertinent. Screenin:00 [facility] ED Fall Risk Assessment (Adult) History of falling in the last 3 months, cm10 including since admission No falls in past 3 months (0 pts) Confusion or Disorientation No (0 pts) Intoxicated or Sedated No (0 pts) Impaired Gait No (0 pts) Mobility Assist Device Used No (0 pt) Altered Elimination No (0 pt) Score/Fall Risk Level 0 - 2 = Low Risk Oriented to surroundings, Educated pt \T\ family on fall prevention, incl call for assistance when getting out of bed. Abuse screen: Denies threats or abuse. Denies injuries from another. Nutritional screening: No deficits noted. Tuberculosis screening: No symptoms or risk factors identified. Assessment: 12:45 Reassessment: Patient appears in no apparent distress at this time. Patient and/or db family updated on plan of care and expected duration. Pain level reassessed. Patient is alert, oriented x 3, equal unlabored respirations, skin warm/dry/pink. General: Appears in no apparent distress. comfortable, Behavior is calm, cooperative. Pain: Complains of pain in chest. Cardiovascular: Rhythm is A-V sequential pacer. Respiratory: Reports shortness of breath Airway is patent Respiratory effort is even, unlabored, Breath sounds are clear. 13:30 Reassessment: Patient appears in no apparent distress at this time. Patient and/or cm10 family updated on plan of care and expected duration. Pain level reassessed. Patient is alert, oriented x 3, equal unlabored respirations, skin warm/dry/pink. 14:08 Reassessment: Patient appears in no apparent distress at this time. Patient and/or cm10 family updated on plan of care and expected duration. Pain level reassessed. Patient is alert, oriented x 3, equal unlabored respirations, skin warm/dry/pink. Patient states feeling better. Patient states symptoms have improved. General: Appears in no apparent distress. comfortable, Behavior is calm, cooperative. Neuro: Level of Consciousness is awake, alert, obeys commands, Oriented to person, place, time, situation. Vital Signs: 11:37 BP 190 / 82; Pulse 70; Resp 18; Temp 98.3; Pulse Ox 99% on R/A; Weight 70.76 kg; Height ph 5 ft. 5 in. ; 12:43 BP 167 / 76; Pulse 60; Resp 16; Pulse Ox 100% on R/A; cm10 13:30 BP 152 / 78; Pulse 60; Resp 16; Pulse Ox 100% on R/A; cm10 11:37 Body Mass Index 25.96 (70.76 kg, 165.1 cm) ph ED Course: 11:29 Patient arrived in ED. mg5 11:35 Anna Marie Canas, RN is Primary Nurse. db 11:35 David Mackey MD is Attending Physician. rt 11:38 Triage completed. ph 11:40 Arm band placed on Patient placed in an exam room, on a stretcher, on pulse oximetry. ph 12:40 Inserted saline lock: 20 gauge in left antecubital area, using aseptic technique. Blood db collected. 13:13 Patient has correct armband on for positive identification. Bed in low position. Call db light in reach. Side rails up X 1. 13:25 XRAY Chest (1 view) In Process Unspecified. EDMS 14:08 Provided Education on: DISCHARGE. cm10 14:08 No provider procedures requiring assistance completed. IV discontinued, intact, cm10 bleeding controlled, No redness/swelling at site. Administered Medications: No medications were administered Medication: 14:01 VIS not applicable for this client. cm10 Outcome: 13:52 Discharge ordered by . rt 14:08 Discharged to home ambulatory, with family. cm10 14:08 Condition: stable 14:08 Discharge instructions given to patient, Instructed on discharge instructions, follow up and referral plans. 14:10 Patient left the ED. cm10 Signatures: Dispatcher [employer] EDPR Radha Hernandez RN RN ph Anna Marie Canas, RN RN db David Mackey MD MD rt Echo Mejia RN RN cm10 Carey Peters mg5 Corrections: (The following items were deleted from the chart) 11:40 11:38 PSHx: valave replacement; ph ph 13:14 13:13 Inserted saline lock: 20 gauge in left antecubital area, using aseptic technique. db Blood collected. db
--- NOTE | 2022-12-01 13:54 | EDPHYS ---
Physician Documentation [facility] Name: Zonia Nevarez Age: 77 yrs Sex: Female : 1945 Arrival Date: 12/01/2022 Time: 11:26 Bed 20 Private MD: ED Physician David Mackey HPI: 12/01 13:44 This 77 yrs old Female presents to ER via Ambulatory with complaints of Breathing rt Difficulty, Feet Swelling, Dizziness. 13:44 Patient presents to the ED with bilateral ankle swelling, dyspnea for 1 week. The rt patient denies aggravating or alleviating factors. Denies dyspnea on exertion orthopnea. Denies chest pain. Patient reports compliance with her medications. Denies other acute complaints at this time, symptoms are moderate severity, no other aggravating or alleviating factors.. Historical: - Allergies: 11:38 metformin; ph 11:38 Multaq; ph 11:38 Pradaxa; ph - PMHx: 11:38 Atrial Fib; High Cholesterol; Hypertension; ph - PSHx: 11:38 pacemaker; partial hysterectomy; valve replacement; cardiac stents; ph - Immunization history:: Adult Immunizations unknown. - Social history:: Smoking status: Patient denies any tobacco usage or history of. - Family history:: not pertinent. ROS: 13:44 Constitutional: Negative for fever, chills, and weight loss, Abdomen/GI: Negative for rt abdominal pain, nausea, vomiting, diarrhea, and constipation, MS/Extremity: Negative for injury and deformity, Skin: Negative for injury, rash, and discoloration, Neuro: Negative for headache, weakness, numbness, tingling, and seizure, Psych: Negative for depression, anxiety, suicide ideation, homicidal ideation, and hallucinations. 13:44 Cardiovascular: Positive for edema, Negative for chest pain. 13:44 Respiratory: Positive for shortness of breath, Negative for cough. Exam: 13:44 Constitutional: This is a well developed, well nourished patient who is awake, alert, rt and in no acute distress. Head/Face: Normocephalic, atraumatic. Chest/axilla: Normal chest wall appearance and motion. Nontender with no deformity. No lesions are appreciated. Cardiovascular: Regular rate and rhythm with a normal S1 and S2. No gallops, murmurs, or rubs. Normal PMI, no JVD. No pulse deficits. Respiratory: Lungs have equal breath sounds bilaterally, clear to auscultation and percussion. No rales, rhonchi or wheezes noted. No increased work of breathing, no retractions or nasal flaring. Abdomen/GI: Soft, non-tender, with normal bowel sounds. No distension or tympany. No guarding or rebound. No evidence of tenderness throughout. Skin: Warm, dry with normal turgor. Normal color with no rashes, no lesions, and no evidence of cellulitis. MS/ Extremity: Pulses equal, no cyanosis. Neurovascular intact. Full, normal range of motion. Neuro: Awake and alert, GCS 15, oriented to person, place, time, and situation. Cranial nerves II-XII grossly intact. Motor strength 5/5 in all extremities. Sensory grossly intact. Cerebellar exam normal. Normal gait. Psych: Awake, alert, with orientation to person, place and time. Behavior, mood, and affect are within normal limits. 13:44 ECG was reviewed by the Attending Physician. Vital Signs: 11:37 BP 190 / 82; Pulse 70; Resp 18; Temp 98.3; Pulse Ox 99% on R/A; Weight 70.76 kg; Height ph 5 ft. 5 in. ; 12:43 BP 167 / 76; Pulse 60; Resp 16; Pulse Ox 100% on R/A; cm10 13:30 BP 152 / 78; Pulse 60; Resp 16; Pulse Ox 100% on R/A; cm10 11:37 Body Mass Index 25.96 (70.76 kg, 165.1 cm) ph MDM: 11:37 Patient medically screened. rt 14:03 Differential diagnosis: Pneumonia, pneumothorax, pulmonary embolism, acute coronary rt syndrome, disc. Data reviewed: vital signs, nurses notes, lab test result(s), EKG, radiologic studies. Consideration of Admission/Observation Escalation of care including admission/observation considered. Patient's work-up is unremarkable, stable vital signs, no pneumonia, pneumothorax, congestive heart failure. No immediate indications for admission to the hospital, patient is comfortable discharge, will follow up with her procurement director, strict return precautions were discussed patient. Independent interpretation of the following test(s) in the Emergency Department X-Ray: My interpretation is No pneumothorax seen on interpretation of the x-ray images. Test considered but Not performed: CT: Low suspicion for PE, CT angiogram not indicated. Care significantly affected by the following chronic conditions: Atrial fibrillation. Counseling: I had a detailed discussion with the patient and/or guardian regarding: the historical points, exam findings, and any diagnostic results supporting the discharge/admit diagnosis, lab results, radiology results, the need for outpatient follow up, to return to the emergency department if symptoms worsen or persist or if there are any questions or concerns that arise at home. 12/01 11:50 Order name: Basic Metabolic Panel; Complete Time: 13:31 rt 12/01 11:50 Order name: CBC with Diff; Complete Time: 13: rt 12/01 11:50 Order name: LFT's; Complete Time: : rt 12/01 11:50 Order name: Magnesium; Complete Time: : rt 12/01 11:50 Order name: NT PRO-BNP; Complete Time: 13: rt 12/01 11:50 Order name: Troponin HS; Complete Time: 13: rt 12/01 11:50 Order name: XRAY Chest (1 view); Complete Time: 13:47 rt 12/01 11:50 Order name: EKG; Complete Time: 11:50 rt 12/01 11:50 Order name: Cardiac monitoring; Complete Time: 13:03 rt 12/01 11:50 Order name: EKG - Nurse/Tech; Complete Time: 13: rt 12/01 11:50 Order name: IV Saline Lock; Complete Time: 13: rt 12/01 11:50 Order name: Labs collected and sent; Complete Time: 13:12/01 11:50 Order name: O2 Per Protocol; Complete Time: 13:12/01 11:50 Order name: O2 Sat Monitoring; Complete Time: 13:03 rt EC:44 Rate is 60 beats/min. Rhythm is regular, Paced with No ectopy. MS interval is normal. rt QRS interval is normal. QT interval is normal. No Q waves. Administered Medications: No medications were administered Disposition Summary: 12/01/22 13:52 Discharge Ordered Location: Home rt Problem: new rt Symptoms: have improved rt Condition: Stable rt Diagnosis - Dyspnea rt Followup: rt - With: Private Physician - When: 2 - 3 days - Reason: Discharge Instructions: - Discharge Summary Sheet rt - Shortness of Breath, Adult rt Forms: - Medication Reconciliation Form rt - Thank You Letter rt - Antibiotic Education rt - Prescription Opioid Use rt - Patient Portal Instructions rt Signatures: Dispatcher [employer] Radha Javed, RN RN ph David Mackey MD MD rt Echo Mejia RN RN cm10 Corrections: (The following items were deleted from the chart) 11:40 11:38 PSHx: valave replacement; ph ph
[2022-12-01 14:27] VITALS: TEMP 98.3
[2022-12-01 14:37] VITALS: O2SAT 100
[2022-12-01 14:39] VITALS: BP 152/78
--- NOTE | 2022-12-02 12:03 | EKG ---
Test Date: 2022-12-01 Test Time: 12:54:58 Pumper Hand: 0000 MEASUREMENT RESULTS: Intervals: Rate: 60 W[place]: 216 QRSD: 114 QT: 440 QTc: 440 [place]: P: W[place]: 216 QRS: 104 T: -45 INTERPRETIVE STATEMENTS: AV dual-paced rhythm with prolonged AV conduction Abnormal ECG Compared to ECG 02/13/2019 07:07:26 Sinus rhythm no longer present Left ventricular hypertrophy no longer present Electronically Signed On 12-02-22 12:02:20 CDT by João Viramontes
== END 2022-12-01 14:10 | disposition home or self-care (01) ==
LOC: ER 11:26
DX: R06.00 Dyspnea, unspecified (principal); R22.43 Localized swelling, mass and lump, lower limb, bilateral; I10 Essential (primary) hypertension; I48.91 Unspecified atrial fibrillation; Z95.0 Presence of cardiac pacemaker; Z95.818 Presence of other cardiac implants and grafts; Z88.8 Allergy status to other drugs, medicaments and biological substances
CPT/HCPCS: 36415; 71045; 80048; 80076; 83735; 83880; 84484; 85025; 93005; 99284

== ENCOUNTER 2023-03-22 10:30 | Day surgery (SDC) | payer OTHER, BC ==
[2023-03-22] MEDS ORDERED: NA CHLORIDE 0.9% 500 ML ONE (11:09)
[2023-03-22] MEDS ORDERED: LIDOCAINE 2% MPF 5 ML VIAL ONE (12:01)
[2023-03-22] MEDS ORDERED: propofoL 200 MG/20 ML VIAL IV ONE (12:01)
--- NOTE | 2023-03-22 14:51 | OP ---
Date of Procedure: 03/22/2023 Surgeon: NOEL JAUREGUI Procedure Performed: Transesophageal echocardiogram. Indication: Atrial fibrillation, post Watchman placement. Description Of Procedure: After risks, benefits, and alternatives were explained, patient agreed to procedure and signed informal consent. The patient was brought into the OR room 3. Anesthesia was a pplied and then JUANIS probe was inserted without difficulty and JUANIS was performed and patient tolerated the procedure very well. Sent to Recovery in stable condition. Conclusion: Watchman seated well. No leak, but there is a small thrombus attached to it. Plan: Continue Eliquis for 3 months and repeat JUANIS. SR/MODL Voice ID: [id number] Report ID: [id number]
[2023-03-22 15:07] VITALS: TEMP 98.1
[2023-03-22 15:09] VITALS: BP 121/67; O2SAT 100
--- NOTE | 2023-03-23 09:22 | TEE ---
TRANSESOPHAGEAL ECHOCARDIOGRAM REPORT CARDIOLOGY DEPARTMENT DATE OF STUDY: 03/22/2023 HEIGHT: 5'6" WEIGHT: 162 lbs DIAGNOSIS: POST WATCHMAN [employer] COMMENTS: JUANIS CARDIAC HISTORY: CATHERIZATION: SURGERY: PROSTHETIC VALVE: PACEMAKER: 2 DIMENSIONAL ASSESSMENT: RIGHT ATRIUM: LEFT ATRIUM: RIGHT VENTRICLE: LEFT VENTRICLE: TRICUSPID VALVE: MITRAL VALVE: PULMONIC VALVE: AORTIC VALVE: PERICARDIAL EFFUSION: AORTIC ROOT: EJECTION FRACTION: LEFT VENTRICULAR WALL MOTION: DOPPLER/COLOR FLOW: COMMENTS: 1. TRANSESOPHAGEAL ECHOCARDIOGRAM WAS INSERTED, NO DIFFICULTY 2. WATCHMAN IS SEATED WELL, NO LEAK 3. SMALL THROMBUS ATTACHED TO THE DEVICE IS SEEN. TECHNOLOGIST: MAZIN VELEZ/ VERONICA ELIAS
== END 2023-03-22 12:50 | disposition home or self-care (01) ==
LOC: EKG 10:30
PROVIDERS: ATTEND Internal Medicine
DX: I48.11 Longstanding persistent atrial fibrillation (principal); Z98.890 Other specified postprocedural states; I25.10 Atherosclerotic heart disease of native coronary artery without angina pectoris; I35.0 Nonrheumatic aortic (valve) stenosis; I10 Essential (primary) hypertension; E78.2 Mixed hyperlipidemia; Z95.0 Presence of cardiac pacemaker; Z88.8 Allergy status to other drugs, medicaments and biological substances
CPT/HCPCS: 93312; J2704; J2001; J7040

== ENCOUNTER → 2023-07-01 | Day surgery (SDC) | payer OTHER, BC ==
[~2023-07-01] MED LIST: ATROPINE SULF 1 MG/10 ML SYR IV ONE; LIDOCAINE 1% MPF 5 ML VIAL ONE; NA CHLORIDE 0.9% 500 ML ONE; propofoL 200 MG/20 ML VIAL IV ONE
[2023-07-01 12:34] VITALS: TEMP 97; O2SAT 100
[2023-07-01 13:56] VITALS: BP 129/69
--- NOTE | 2023-07-04 07:44 | TEE ---
TRANSESOPHAGEAL ECHOCARDIOGRAM REPORT CARDIOLOGY DEPARTMENT DATE OF STUDY: 07.01.23 HEIGHT: 5'5" WEIGHT: 162 DIAGNOSIS: POST WATCHMAN [employer] COMMENTS: CARDIAC HISTORY: CATHERIZATION: SURGERY: PROSTHETIC VALVE: PACEMAKER: 2 DIMENSIONAL ASSESSMENT: RIGHT ATRIUM: LEFT ATRIUM: RIGHT VENTRICLE: LEFT VENTRICLE: TRICUSPID VALVE: MITRAL VALVE: PULMONIC VALVE: AORTIC VALVE: PERICARDIAL EFFUSION: AORTIC ROOT: EJECTION FRACTION: 55-60% LEFT VENTRICULAR WALL MOTION: DOPPLER/COLOR FLOW: COMMENTS: 1. TRANSESOPHAGEAL ECHOCARDIOGRAM PROBE WAS INSERTED, NO DIFFICULTY. 2. WATCHMAN IS SEATED WITH NO LEAK OR THROMBUS. 3. NORMAL LEFT VENTRICULAR EJECTION FRACTION 55-60%. 4. MILD MITRAL REGURGITATION. TECHNOLOGIST: VERONICA ELIAS
== END ==
LOC: CCL 10:02
PROVIDERS: ATTEND Internal Medicine
DX: I48.11 Longstanding persistent atrial fibrillation (principal); I35.0 Nonrheumatic aortic (valve) stenosis; I25.10 Atherosclerotic heart disease of native coronary artery without angina pectoris; I73.9 Peripheral vascular disease, unspecified; I10 Essential (primary) hypertension; E78.5 Hyperlipidemia, unspecified; Z98.890 Other specified postprocedural states; Z95.0 Presence of cardiac pacemaker; Z79.01 Long term (current) use of anticoagulants; Z79.899 Other long term (current) drug therapy; Z88.8 Allergy status to other drugs, medicaments and biological substances; Z82.49 Family history of ischemic heart disease and other diseases of the circulatory system
CPT/HCPCS: 93312; J2704; J2001; J7040; J0461